=== PATIENT | female | born 1935 | race Caucasian/White ===

== ENCOUNTER → 2017-06-29 12:00 | Outpatient (REF) | payer MEDICARE, SELFPAY ==
[2017-06-29 14:32] LABS: Color, Urine Yellow (Yellow); Glucose, Dipstick Normal (Normal); Ketone-Dipstick Negative (Negative); Leukocyte Esterase-Dipstick 25 /ul (Negative); Nitrite-Dipstick Positive (Negative); Occult Blood-Urine 10 /ul (Negative); Protein-Dipstick Negative (Negative); Urine Bilirubin Dipstick Negative (Negative); Urine Clarity Clear (Clear); Urine Urobilinogen Normal (Normal)
== END ==
LOC: OLS.DANBUR 12:00
PROVIDERS: Visit Provider Family Medicine
DX: N39.0 Urinary tract infection, site not specified (principal)
CPT/HCPCS: 81002; 87086; 87088; 87186

== ENCOUNTER → 2017-11-22 05:00 | Outpatient (REF) | payer MEDICARE, SELFPAY ==
[2017-11-22 08:31] LABS: Thyroid Stim Hormone (TSH) 1.91 uIU/mL (0.358-3.74)
== END ==
PROVIDERS: Visit Provider Family Medicine
DX: E03.9 Hypothyroidism, unspecified (principal)
CPT/HCPCS: 36415; 84443

== ENCOUNTER → 2018-01-26 09:30 | Outpatient (REF) | payer MEDICARE, SELFPAY ==
[2018-01-26 10:07] LABS: Color, Urine Yellow (Yellow); Glucose, Dipstick Normal (Normal); Ketone-Dipstick Negative (Negative); Leukocyte Esterase-Dipstick 500 /ul (Negative); Nitrite-Dipstick Positive (Negative); Occult Blood-Urine 10 /ul (Negative); Protein-Dipstick Negative (Negative); Specific Gravity, Urine 1.015 (1.002-1.030); Urine Bilirubin Dipstick Negative (Negative); Urine Clarity Clear (Clear); Urine Urobilinogen Normal (Normal)
== END ==
PROVIDERS: Visit Provider Family Medicine
DX: N39.0 Urinary tract infection, site not specified (principal)
CPT/HCPCS: 81002; 87077; 87086; 87088; 87186

== ENCOUNTER 2018-01-31 17:35 | Emergency (ER) | payer MEDICARE, SELFPAY ==
[2018-01-31 17:36] VITALS: BP 158/69; PULSE 93; RESP 16; TEMP 36.7; O2SAT 96; BMI 16.1
--- NOTE | 2018-01-31 17:56 | RAD_ITS ---
STUDY: X-RAY - RIGHT SHOULDER REASON FOR EXAM: Female, 82 years old. Fall TECHNIQUE: 2 view(s) of the shoulder. COMPARISON: None. FINDINGS: There is no evidence of fracture or dislocation. There are mild degenerative changes. There are no radiodense foreign bodies. RAD/Shoulder min 2 Views IMPRESSION: No fracture or dislocation. Mild degenerative change. Electronically Signed: Joaquim Hayden, at 18:50 EDT Tel , Service support ,
--- NOTE | 2018-01-31 17:56 | CT_ITS ---
STUDY: CT CERVICAL SPINE WITHOUT CONTRAST REASON FOR EXAM: Female, 82 years old. Trauma RADIATION DOSAGE (If Supplied By Facility): CTDIvol = ( 12.41 ) mGy, DLP = ( 254.83 ) mGycm TECHNIQUE: High resolution transaxial imaging was performed without contrast material. Sagittal and coronal images were reconstructed. Individualized dose optimization techniques were used for this CT. COMPARISON: None available. FINDINGS: There is no evidence of fracture or dislocation in the cervical spine. There are mild degenerative changes. The visualized paraspinal soft tissues are within normal limits. CT/Spine Cervical without Contras IMPRESSION: No fracture or dislocation in the cervical spine. Mild degenerative change. Electronically Signed: Joaquim Hayden, at 18:48 EDT Tel , Service support ,
--- NOTE | 2018-01-31 17:56 | CT_ITS ---
STUDY: CT BRAIN WITHOUT CONTRAST REASON FOR EXAM: Female, 82 years old. Trauma RADIATION DOSAGE (If Supplied By Facility): CTDIvol = ( 44.99 ) mGy, DLP = ( 779.24 ) mGycm TECHNIQUE: Transaxial CT imaging of the brain was performed without administration of intravenous contrast material. Individualized dose optimization techniques were used for this CT. COMPARISON: None. FINDINGS: There is no acute bleed or infarct. There are chronic ischemic and atrophic changes. The ventricles are normal in configuration. There is no hydrocephalus. The visualized paranasal sinuses are clear. The mastoid air cells are well aerated. There is no skull fracture. CT/Brain/Head without Contrast IMPRESSION: No acute intracranial abnormality. Chronic ischemic and atrophic changes. Electronically Signed: Joaquim Hayden, at 18:41 EDT Tel , Service support ,
--- NOTE | 2018-01-31 18:15 | RAD_ITS ---
STUDY: X-RAY - RIGHT KNEE REASON FOR EXAM: Female, 82 years old. Fall TECHNIQUE: 3 view(s) of the knee. COMPARISON: None. FINDINGS: There is no evidence of fracture or dislocation. There are no significant degenerative changes. There are no radiodense foreign bodies. RAD/Knee 3 Views IMPRESSION: No fracture or dislocation. Electronically Signed: Joaquim Hayden, at 18:49 EDT Tel , Service support ,
--- NOTE | 2018-01-31 19:08 | ED.VISSUMM ---
- ER Visit Summary Date of Service: 01/31/18 Chief Complaint: Fall History of Present Illness: The patient is a 82 F who states that she fell last evening on her way to the bathroom. She struck the right side of her head her right shoulder her right knee. No loss of consciousness. She was supposed to the pain is in the right shoulder. No blood thinners. No nausea vomiting today. Physical Examination: Afebrile vital signs are stable Patient has pain with movement of the right shoulder but no obvious dislocation or deformity. She is neurovascularly intact distally. No pain with palpation of the scapula or the ribs. Lung sounds are clear and equal. There is a contusion noted over the inferior aspect of the right knee. No joint effusion or obvious deformity. Neurovascular intact below the knee. Test Results: CT the brain and cervical spine were negative. X-rays of the shoulder and knee were also negative. Emergency Department Course and Treatment: Patient will be discharged home following up if not improving return if worsening or concerns Impression: 1. Fall 2. Right shoulder contusion 3. Right knee contusion This note was generated with [employer] dictation software. It may contain incorrect words, spelling, and punctuation that were not noted in review of the chart prior to signing ED Disposition - Plan for ED Patient: Disposition: Home or Assisted Living Chief Complaint: Fall Instructions: ED Contusion Lower Ext, ED Contusion Upper Ext Referrals: Scot Miller MD [Primary Care Provider] - 1 Week if not improving
[2018-01-31 19:28] VITALS: RESP 18; O2SAT 98
== END 2018-01-31 19:29 | disposition home or self-care (01) ==
PROVIDERS: Emergency Provider Emergency Medicine; Family Provider Family Medicine; PCP Family Medicine
DX: S40.011A Contusion of right shoulder, initial encounter (principal); S80.01XA Contusion of right knee, initial encounter; W19.XXXA Unspecified fall, initial encounter; Y93.9 Activity, unspecified; Y92.9 Unspecified place or not applicable; G35 Multiple sclerosis; E03.9 Hypothyroidism, unspecified; F32.9 Major depressive disorder, single episode, unspecified; Z79.899 Other long term (current) drug therapy
CPT/HCPCS: 70450; 72125; 73030; 73562; 99284

== ENCOUNTER → 2018-06-13 05:00 | Outpatient (REF) | payer MEDICARE, SELFPAY ==
[2018-06-13 09:29] LABS: Anion Gap 8 (5-15); BUN 24 mg/dL (7-18); BUN/Creat Ratio 35.4 RATIO (10-20); Calcium,Total 8.6 mg/dL (8.5-10.1); Chloride 106 mmol/L (98-107); Creatinine, Serum 0.68 mg/dL (0.55-1.02); EST Glomerular Filtration Rate 88 mL/min (>60); Est Glom Filt Rate - Afr Amer 107 mL/min (>60); Glucose 84 mg/dL (74-106); Potassium 4.6 mmol/L (3.5-5.1); Sodium Level 140 mmol/L (136-145); Thyroid Stim Hormone (TSH) 0.98 uIU/mL (0.358-3.74)
== END ==
PROVIDERS: Visit Provider Family Medicine
DX: E03.9 Hypothyroidism, unspecified (principal); Z79.899 Other long term (current) drug therapy
CPT/HCPCS: 36415; 80048; 84443

== ENCOUNTER 2018-07-01 20:08 | Observation (INO) | payer MEDICARE, SELFPAY ==
[2018-07-01 20:09] VITALS: BP 165/77; PULSE 73; RESP 16; TEMP 36.5; O2SAT 95; BMI 18.7
--- NOTE | 2018-07-01 20:35 | EKG12_ITS ---
Test Reason : Blood Pressure : / mmHG Vent. Rate : 072 BPM Atrial Rate : 072 BPM P-R Int : 132 ms QRS Dur : 070 ms QT Int : 372 ms P-R-T Axes : 062 043 053 degrees QTc Int : 407 ms Normal sinus rhythm Possible Left atrial enlargement Borderline ECG Confirmed by NICK MACHADO ([id number]), graphic editor ILANA GROVE ([id number]) on 07/04/2018 1:12:51 PM Referred By: Confirmed By:NICK MACHADO
--- NOTE | 2018-07-01 20:35 | RAD_ITS ---
STUDY: X-RAY - RIGHT HIP REASON FOR EXAM: Female, 82 years old. Fall. Right hip pain. TECHNIQUE: 2 views of the hip. COMPARISON: None. FINDINGS: Normal femoral head, neck, intertrochanteric region and visualized proximal femur. Normal acetabulum. Normal hip joint. Normal visualized superior and inferior pubic rami and ischial tuberosities. There is no demonstrated hip fracture. RAD/HIP, UNI W/ Pelvis 2-3 Views IMPRESSION: Normal x-ray examination of the hip. Electronically Signed: Ernie Hagen MD at 21:37 EST , Service support ,
--- NOTE | 2018-07-01 20:38 | ED.VISSUMM ---
- ER Visit Summary Date of Service: 07/01/18 Chief Complaint: Fall History of Present Illness: The patient is a 82 F presenting after fall. Patient states she has fallen twice in the past 3 days. She denies hitting her head or losing consciousness. States she lost her balance. After her fall today she complained of right hip pain. She is able to stand but is unable to ambulate. She is living in assisted living currently. Denies other injuries. Denies other complaints. Physical Examination: Vitals are stable. Patient is afebrile. Alert no acute distress. HEENT exam is unremarkable. Neck is supple, nontender. Lungs are clear and equal bilaterally. Heart is regular rate and rhythm. Abdomen is soft nontender nondistended. Extremities right hip tender to palpation with painful range of motion. No shortening or rotation. Skin is warm and dry. No focal neurologic deficit. Remainder of exam is unremarkable. Emergency Department Course and Treatment: Patient was given morphine, Zofran IV. EKG is sinus rate is 72. CBC, chemistries unremarkable other than hemoglobin 11.9, BUN 44. Urinalysis shows nitrites, 0 white blood cells. Urine culture was sent. Troponin is negative. Chest x-ray shows no acute process. Right hip x-ray shows no acute process. Patient attempted to ambulate and was unable to ambulate in the ED. Discussed with the hospitalist for admission. Disposition: Admission Impression: Right hip pain, inability to ambulate This note was generated with [employer] dictation software. It may contain incorrect words, spelling, and punctuation that were not noted in review of the chart prior to signing ED Disposition - Plan for ED Patient: Referrals: Dulce Woodson MD [Primary Care Provider] -
[2018-07-01 20:58] LABS: Absolute Lymphocyte Count 1.65 X10^3/ul (0.83-4.51); Absolute Neutrophil Count 6.4 X10^3/uL (2.0-7.7); Basophil# 0.02 X10^3/uL; Basophil% 0.2 % (0-1); Eosinophil# 0.03 X10^3/uL; Eosinophils% 0.3 % (0-5); Hematocrit 37.5 % (37-47); Hemoglobin 11.9 g/dl (12.0-15.0); Lymphocyte # 1.65 X10^3/ul (4.0); Lymphocyte % 18.2 % (19-41); Mean Corp Hgb Conc 31.7 g/gl (32-36); Mean Corpuscular Hgb 31.1 pg (27.0-32.0); Mean Corpuscular Volume 97.9 fL (81-99); Mean Platelet Vol. 9.3 fl (6.2-12.0); Monocyte# 0.95 X10^3/uL; Monocyte% 10.5 % (0-10); Neutrophil # 6.39 X10^3/uL (2.7-7.7); Neutrophil % 70.2 % (47-70); Platelet Count 186 K/mm3 (150-450); RBC Distribution Width CV 14.2 % (11.6-14.6); RBC Distribution Width SD 51.1 fl (35.1-43.9); Red Blood Count 3.83 M/mm3 (4.2-5.4); White Blood Count 9.1 K/mm3 (4.4-11.0)
[2018-07-01 20:59] LABS: POSITIVE COUNT NO; POSITIVE DIFFERENTIAL NO; POSITIVE MORPHOLOGY NO
--- NOTE | 2018-07-01 21:02 | ED.RN ---
pt denies pain at this time, pt verbalizes no need for pain or nausea medication.
[2018-07-01 21:17] LABS: Anion Gap 8 (5-15); BUN 44 mg/dL (7-18); BUN/Creat Ratio 56.1 RATIO (10-20); Calcium,Total 8.4 mg/dL (8.5-10.1); Chloride 108 mmol/L (98-107); Creatinine, Serum 0.78 mg/dL (0.55-1.02); EST Glomerular Filtration Rate 75 mL/min (>60); Est Glom Filt Rate - Afr Amer 90 mL/min (>60); Estimated Creatinine Clearance 36.65 ml/min; Glucose 93 mg/dL (74-106); Potassium 3.8 mmol/L (3.5-5.1); Sodium Level 142 mmol/L (136-145)
--- NOTE | 2018-07-01 21:25 | RAD_ITS ---
STUDY: X-RAY CHEST REASON FOR EXAM: Female, 82 years old. Fall. Pain. TECHNIQUE: Single AP portable view of the chest. COMPARISON: None. FINDINGS: The lungs are clear and expanded. Elevated right hemidiaphragm. No infiltrates or effusions. There is no demonstrated pleural abnormality. Normal size heart. Normal mediastinum and pinky. Normal visualized pulmonary arteries. Normal visualized aortic arch and descending thoracic aorta. There is mild dextroscoliosis of the thoracic spine. Normal visualized ribs, clavicles, and shoulders. There is no demonstrated abnormality of the visualized soft tissue structures of the upper abdomen. RAD/Chest 1 View (Portable) IMPRESSION: No acute chest disease. Electronically Signed: Ernie Hagen MD at 21:36 EST , Service support ,
[2018-07-01 22:04] LABS: Mucous, Urine 0 SEEN /hpf (<or=2+); Red Blood Cells-Urine 0 SEEN /hpf (0-5); Squamous Epithelial Cells - UA 0 SEEN /hpf (5-10); White Blood Cells 0 SEEN /hpf (0-5)
[2018-07-01 22:19] LABS: Bacteria 1+ /hpf (None Seen); Color, Urine Yellow (Yellow); Glucose, Dipstick Normal (Normal); Ketone-Dipstick Negative (Negative); Leukocyte Esterase-Dipstick Negative /ul (Negative); Nitrite-Dipstick Positive (Negative); Occult Blood-Urine 10 /ul (Negative); Protein-Dipstick Negative (Negative); Specific Gravity, Urine 1.025 (1.002-1.030); Urine Bilirubin Dipstick Negative (Negative); Urine Clarity Clear (Clear); Urine Urobilinogen Normal (Normal)
--- NOTE | 2018-07-01 22:44 | HP.PCM_ITS ---
History of Present Illness Date of Admission: 07/01/18 Chief Complaint: right hip pain, recurrent falls The patient is a 82 year old F past medical history which includes multiple sclerosis. She was admitted through the ED on 07/01/2018 with a complaint of right hip pain and inability to weight-bear. Patient has had a couple of falls recently and her daughter states that she was told by the assisted living facility staff that patient tripped over her dog and fell. Patient denied any loss of consciousness, dizziness or lightheadedness, palpitations or blurred vision. She fell and hurt her right hip and was unable to weight-bear on the hip and so she decided to come into the ED. She has not had a flareup of her MS in recent times and states that she recently had an MRI of the brain done last Saturday and they are waiting the results of it. It was done just as a routine follow-up for her MS as she did not have any symptoms at that time. Vitals were essentially stable and labs were unremarkable. X-ray of the right hip showed a normal examination. She is been admitted to be managed for debility due to recurrent falls and right hip pain due to recurrent falls. [] Past Medical History Past Medical History (Chronic Problems): Chronic Problems Sacroiliac dysfunction (Chronic) Lumbar degenerative disc disease (Chronic) Coccydynia (Chronic) Allergies No Known Allergies Allergy (Verified 07/26/16 12:50) Home Medications: Ambulatory Orders Medication Instructions Recorded Fluoxetine [Prozac] 20 mg PO DAILY 01/31/18 Levothyroxine [Synthroid] 25 mcg PO DAILY 01/31/18 Meloxicam 15 mg PO DAILY 01/31/18 Acetaminophen 500 mg PO Q6H PRN 07/02/18 Docusate Sodium 100 mg PO BID 07/02/18 Gabapentin [Neurontin] 300 mg PO TID 07/02/18 Hydrocodone Bitart/Apap 5-325 1 tab PO BID PRN 07/02/18 [[place] 5/325] Mirtazapine 15 mg PO QHS 07/02/18 Oxybutynin Chloride [Oxybutynin 10 mg PO DAILY 07/02/18 Chloride ER] Prednisone 10 mg PO DAILY 07/02/18 Psychiatric History: No pertinent psych hx ARCHITECTURAL DRAFTSMAN History: No pertinent ARCHITECTURAL DRAFTSMAN history Lives: - - Assisted living facility Smoking Status: Former smoker Alcohol: None Drugs: None - *Family History Maternal History Items: No pertinent history Review of Systems Constitutional: Denies: Chills, Fever, Malaise, Weakness, Weight Change, Fatigue Eyes: Denies: Blurred vision, Cataracts HEENT: Denies: Head Aches, Sinus Congestion, Sinus Drainage Cardiovascular: Denies: Chest Pain, Chest Tightness, Heaviness, Light Headedness, Orthopnea, Palpitations, Paroxysmal Noc. Dyspnea, Syncope Respiratory: Denies: Cough, Shortness of Breath, Shortness of breath at rest, Sputum production Gastrointestinal: Denies: Abdominal Pain, Nausea, Vomiting Genitourinary: Denies: Dysuria Musculoskeletal: Reports: Joint Pain - right hip pain. Denies: Arm Pain, Back Pain, Joint Tenderness Skin: Denies: Rash, Wounds Neurological: Denies: Balance problems, Blurred vision, Double vision, Focal weakness, Numbness, Tingling Psychiatric: Denies: Anxiety, Depression, Homicidal Ideations, Suicidal Ideations Hematologic/ Lymphatic: Denies: Easy Bruising, Easy Bleeding VTE Information - Inpt Only VTE Present on Admission: No VTE Pharm Prophylaxis ordered?: Yes - Physical Exam General: Alert, Oriented x3, Cooperative, No apparent distress, - - does seem a bit confused during review HEENT: Atraumatic, PERRLA, EOMI, Normocephalic Oral: Moist Mucosa Neck: Supple, No JVD, Negative Carotid Bruits Lungs: Clear to auscultation, Normal air movement, No rhonchi, No wheeze, No rales Cardiovascular: Regular rate, Regular Rhythm, Normal S1, Normal S2, No murmurs Abdomen: Bowel Sounds Present, Soft, Non Tender, Non-Distended, No Hepato- splenomegaly Extremities: No clubbing, No cyanosis, No edema, Capillary Refill Less than 3 Seconds Skin: No rashes, No breakdown Musculoskeletal: No Tenderness to Palpation of Joints or Extremities, - - no tenderness on rotation of right hip joint Lymphatic: No Cervical, Supraclavicular, or Inguinal Adenopathy Neurological: Cranial nerves II-XII grossly intact, Neuro grossly intact Psych/Mental Status: Normal Affect, Appropriate, Alert and oriented to time, place, person, mood and affect Vital Signs Temp Pulse Resp BP Pulse Ox 97.7 F L 73 16 165/77 H 95 07/01/18 20:09 07/01/18 20:09 07/01/18 20:09 07/01/18 20:09 07/01/18 20:09 Oxygen Delivery Method Room Air Weight: 116 lb Body Mass Index (BMI) 18.7 Laboratory Tests Past 24 Hrs 07/01/18 07/01/18 07/01/18 20:45 20:45 22:00 WBC 9.1 RBC 3.83 L Hgb 11.9 L Hct 37.5 MCV 97.9 MCH 31.1 MCHC 31.7 L RDW 14.2 RDW Differential 51.1 H Plt Count 186 MPV 9.3 Immature Gran % (Auto) 0.600 Neut % (Auto) 70.2 H Lymph % (Auto) 18.2 L [place] % (Auto) 10.5 H Eos % (Auto) 0.3 Baso % (Auto) 0.2 Absolute Neuts (auto) 6.4 Absolute Lymphs (auto) 1.65 Total Counted Not Reportable Sodium 142 Potassium 3.8 Chloride 108 H Carbon Dioxide 26.0 Anion Gap 8 BUN 44 H Creatinine 0.78 Estim Creat Clear Calc 36.65 Est GFR (MDRD) Af Amer 90 Est GFR (MDRD) Non-Af 75 BUN/Creatinine Ratio 56.1 H Glucose 93 Calcium 8.4 L Troponin I < 0.015 Urine Color Yellow Urine Clarity Clear Urine pH 5.0 Ur Specific [place] 1.025 Urine Protein Negative Urine Glucose (UA) Normal Urine Ketones Negative Urine Occult Blood 10 H Urine Nitrite Positive H Urine Bilirubin Negative Urine Urobilinogen Normal Ur Leukocyte Esterase Negative Urine RBC 0 SEEN Urine WBC 0 SEEN Ur Squamous Epith Cells 0 SEEN Urine Bacteria 1+ Urine Mucus 0 SEEN Diagnostic Data Hip/Pelvis X-Ray 07/01/18 20:35 IMPRESSION: Normal x-ray examination of the hip. Electronically Signed: Ernie Hagen MD at 21:37 EST , Service support , Chest X-Ray 07/01/18 21:25 IMPRESSION: No acute chest disease. Electronically Signed: Ernie Hagen MD at 21:36 EST , Service support , Assessment/Plan 82-year-old female admitted with a complaint of right hip pain and falls. 1. Right hip pain due to mechanical falls * xray of right hip was negative. * unable to weight bear on RLE * admit to Med surg with telemetry * PT/OT consult * fall precautions. * May need placement * MRI of right hip tomorrow * 2. General debility due to mechanical falls: PT/OT consulted. fall precautions 3.Mechanical falls: as under 1. 4. Hypothyroidism: on synthroid 5. Multiple sclerosis: on oxybutinin. Had recent MRI done. To follow up with her neurologist upon discharge DVT prophylaxis: heparin Code Visit OBSV E&M: 49695 Initial observation care L3
[2018-07-01 23:06] VITALS: BP 131/93; PULSE 68; RESP 20; O2SAT 97
[2018-07-01 23:57] VITALS: BMI 18.7
[2018-07-02] VITALS (9 sets, daily range): BP systolic 112–153; BP diastolic 54–74; PULSE 64–83; RESP 16; TEMP 36.3–37.1; O2SAT 94–100; BMI 18.7
[2018-07-02] MEDS: 0.9% Normal Saline 1,000 ML 75 ML IV (00:32)
[2018-07-02 05:52] LABS: Absolute Lymphocyte Count 2.28 X10^3/ul (0.83-4.51); Absolute Neutrophil Count 4.1 X10^3/uL (2.0-7.7); Basophil# 0.03 X10^3/uL; Basophil% 0.4 % (0-1); Eosinophil# 0.08 X10^3/uL; Eosinophils% 1.1 % (0-5); Hematocrit 33.9 % (37-47); Hemoglobin 10.7 g/dl (12.0-15.0); Lymphocyte # 2.28 X10^3/ul (4.0); Lymphocyte % 31.2 % (19-41); Mean Corp Hgb Conc 31.6 g/gl (32-36); Mean Corpuscular Hgb 30.8 pg (27.0-32.0); Mean Corpuscular Volume 97.7 fL (81-99); Mean Platelet Vol. 9.3 fl (6.2-12.0); Monocyte# 0.78 X10^3/uL; Monocyte% 10.7 % (0-10); Neutrophil # 4.11 X10^3/uL (2.7-7.7); Neutrophil % 56.2 % (47-70); Platelet Count 164 K/mm3 (150-450); RBC Distribution Width CV 14.3 % (11.6-14.6); RBC Distribution Width SD 50.9 fl (35.1-43.9); Red Blood Count 3.47 M/mm3 (4.2-5.4); White Blood Count 7.3 K/mm3 (4.4-11.0)
[2018-07-02 05:53] LABS: POSITIVE COUNT NO; POSITIVE DIFFERENTIAL NO; POSITIVE MORPHOLOGY NO
--- NOTE | 2018-07-02 05:55 | MRI_ITS ---
STUDY: MRI BILATERAL HIPS T PELVIS REASON FOR EXAM: Right hip pain, multiple falls. TECHNIQUE: Standardized fat and water weighted pulse sequences were obtained in all 3 orthogonal planes. COMPARISON: Radiographs 07/01/2018. FINDINGS: RIGHT HIP Normal hip joint without articular joint space narrowing. Normal right acetabulum. Normal right labrum. Normal right femoral head. Normal right femoral neck and intratrochanteric region. Normal right gluteus minimus, medius and iliopsoas tendons and distal insertions. Normal right superior and inferior pubic rami. Normal right pubic symphysis. Normal right ischial tuberosity. Normal origin of the right hamstring tendons. There is a nondisplaced fracture of the right sacral ala (T1 axial images 8-13) with associated bone edema (inversion recovery coronal images 7-9). Normal visualized soft tissue structures of the pelvis. LEFT HIP Normal left hip joint without articular joint space narrowing. Normal left acetabulum. Normal left labrum. Normal left femoral head. Normal left femoral neck and intratrochanteric region. Normal left gluteus minimus, medius and iliopsoas tendons and distal insertions. Normal left superior and inferior pubic rami. Normal left pubic symphysis. Normal left ischial tuberosity. Normal origin of the left hamstring tendons. Normal visualized left iliac wing, sacroiliac joint, and sacral ala. Normal visualized soft tissue structures of the pelvis. MRI/Pelvis (Routine) IMPRESSION: Nondisplaced fracture of the right sacral ala. Electronically Signed: Norman Chamberlain MD at 11:17 EST Tel , Service support ,
[2018-07-02 06:04] LABS: Anion Gap 8 (5-15); BUN 33 mg/dL (7-18); Calcium,Total 7.9 mg/dL (8.5-10.1); Chloride 108 mmol/L (98-107); Creatinine, Serum 0.72 mg/dL (0.55-1.02); EST Glomerular Filtration Rate 83 mL/min (>60); Est Glom Filt Rate - Afr Amer 100 mL/min (>60); Estimated Creatinine Clearance 36.64 ml/min; Glucose 82 mg/dL (74-106); Potassium 4.5 mmol/L (3.5-5.1); Sodium Level 144 mmol/L (136-145)
[2018-07-02] MEDS: 0.9% NaCl Peripheral Flush Adult/Peds IV ×2 (06:22→10:24)
[2018-07-02] MEDS: Gabapentin 300 MG Capsule PO ×3 (06:22→22:00)
[2018-07-02] MEDS: Levothyroxine 25 MCG TABLET PO (06:22)
[2018-07-02] MEDS: Enoxaparin 40 MG/0.4 ML Syringe SC (08:14)
[2018-07-02] MEDS: Meloxicam 15 MG Tablet PO (08:14)
[2018-07-02] MEDS: Tolterodine Tartrate 2 MG CAP.SA PO (08:14)
[2018-07-02] MEDS: predniSONE 10 MG Tablet PO (08:14)
[2018-07-02] MEDS: Docusate Sodium 100 MG Capsule PO ×2 (08:14→22:00)
[2018-07-02] MEDS: FLUoxetine 20 MG Capsule PO (08:14)
--- NOTE | 2018-07-02 11:02 | CASEMGMT ---
Pt had reported to admitting RN that her daughter Chevy Loja is POA but forms are not on the chart, she will bring the forms in. PAWEL Stover, EXTRUSION PRESS SUPERVISOR
--- NOTE | 2018-07-02 11:14 | CASEMGMT ---
SW met w/pt in room in regard to prior level of function and discharge plan. PCP: Dr. Woodson--though pt states she has not seen Dr. Woodson, she is over the patients at [facility]. Pt used to see a different doctor, is not sure of that doctor's name, but is wondering if she can stay with that doctor or if she has to change to Dr. Woodson. Preferred Pharmacy: Uses the pharmacy at [facility] Insurance/Prescription coverage: [employer] Living Will/POA: Pt confirmed daughter Chevy Loja is POA, papers are not on the chart. Living Arrangements: at [facility] since September of 2017, pt thinks Prior level of function/DME: Pt states did not use a cane or walker, has a small dog she cares for. Pt completes her ADL's, does use [facility] for medication assist and meals. SW spoke w/pt about discharge plan. At this time it is too soon to know what will be the appropriate plan. If able pt would like to return to [facility]. Pt still has an MRI pending as well as PT/OT. SW will continue to follow for discharge planning. Pt states daughter will be here later, SW will speak w/daughter later today when she is here. PAWEL Stover, INSTALLATION HELPER
--- NOTE | 2018-07-02 14:15 | CASEMGMT ---
Pt did well with PT/OT, and should be able to return to [place] with a walker and some home PT as per PT and OT. Pt also would benefit from having a walker. Pt's daughter is in the room now, SW spoke w/pt and daughter. They are in agreement with pt returning to [place] with home PT and a walker. Daughter states they may have a walker and will check on it. SW explained if they do have a walker, bring it in and the therapists can adjust it for the pt. Daughter states understanding. If they do not have a walker, pt does not have a preference for where to get the walker. SW will continue to follow, did text physician to let her know that pt can return to assisted living tomorrow. SW called Gracie, RN was busy, PERI will call back tomorrow. PERI will continue to follow. PAWEL Stover, DISTILLATION OPERATOR
--- NOTE | 2018-07-02 16:53 | PCM.PN.HOSP ---
Subjective: Patient was seen and examined. She feels improved. Her hip pain is better. Denies new complains. ROS is negative. Objective: Physical Exam General: Alert, Oriented x3, Cooperative, No apparent distress HEENT: Atraumatic, PERRLA, EOMI, Normocephalic Oral: Moist Mucosa Neck: Supple, No JVD, Negative Carotid Bruits Lungs: Clear to auscultation, Normal air movement, No rhonchi, No wheeze, No rales Cardiovascular: Regular rate, Regular Rhythm, Normal S1, Normal S2, No murmurs Abdomen: Bowel Sounds Present, Soft, Non Tender, Non-Distended, No Hepato-splenomegaly Extremities: No clubbing, No cyanosis, No edema, Capillary Refill Less than 3 Seconds Skin: No rashes, No breakdown Musculoskeletal: No Tenderness to Palpation of Joints or Extremities, - - no tenderness on rotation of right hip joint Lymphatic: No Cervical, Supraclavicular, or Inguinal Adenopathy Neurological: Cranial nerves II-XII grossly intact, Neuro grossly intact Psych/Mental Status: Normal Affect, Appropriate, Alert and oriented to time, place, person, mood and affect Vitals/I&O's: Vital Signs Temp Pulse Resp BP Pulse Ox 98.3 F 83 16 112/54 L 94 07/02/18 14:40 07/02/18 14:40 07/02/18 14:40 07/02/18 14:40 07/02/18 14:40 Oxygen Delivery Method Room Air Weight: 52.6 kg Body Mass Index (BMI) 18.7 Intake and Output for Last 24 Hours 06/30/18 07/01/18 07/02/18 23:59 23:59 23:59 Intake Total 1126 / 1126 Output Total 300 / 300 Balance 826 / 826 Microbiology Past 72 Hours 07/01/18 22:00 Urine, Catheterized Urine Culture - Preliminary Gram negative yi Laboratory Results 07/01/18 20:45: WBC 9.1, RBC 3.83 L, Hgb 11.9 L, Hct 37.5, MCV 97.9, MCH 31.1, MCHC 31.7 L, RDW 14.2, RDW Differential 51.1 H, Plt Count 186, MPV 9.3, Immature Gran % (Auto) 0.600, Neut % (Auto) 70.2 H, Lymph % (Auto) 18.2 L, [place] % (Auto) 10.5 H, Eos % (Auto) 0.3, Baso % (Auto) 0.2, Absolute Neuts (auto) 6.4, Absolute Lymphs (auto) 1.65, Total Counted Not Reportable 07/01/18 20:45: Sodium 142, Potassium 3.8, Chloride 108 H, Carbon Dioxide 26.0, Anion Gap 8, BUN 44 H, Creatinine 0.78, Estim Creat Clear Calc 36.65, Est GFR (MDRD) Af Amer 90, Est GFR (MDRD) Non-Af 75, BUN/Creatinine Ratio 56.1 H, Glucose 93, Calcium 8.4 L, Troponin I < 0.015 07/01/18 22:00: Urine Color Yellow, Urine Clarity Clear, Urine pH 5.0, Ur Specific [place] 1.025, Urine Protein Negative, Urine Glucose (UA) Normal, Urine Ketones Negative, Urine Occult Blood 10 H, Urine Nitrite Positive H, Urine Bilirubin Negative, Urine Urobilinogen Normal, Ur Leukocyte Esterase Negative, Urine RBC 0 SEEN, Urine WBC 0 SEEN, Ur Squamous Epith Cells 0 SEEN, Urine Bacteria 1+, Urine Mucus 0 SEEN 07/02/18 05:37: WBC 7.3, RBC 3.47 L, Hgb 10.7 L, Hct 33.9 L, MCV 97.7, MCH 30.8, MCHC 31.6 L, RDW 14.3, RDW Differential 50.9 H, Plt Count 164, MPV 9.3, Immature Gran % (Auto) 0.400, Neut % (Auto) 56.2, Lymph % (Auto) 31.2, [place] % (Auto) 10.7 H, Eos % (Auto) 1.1, Baso % (Auto) 0.4, Absolute Neuts (auto) 4.1, Absolute Lymphs (auto) 2.28, Total Counted Not Reportable 07/02/18 05:37: Sodium 144, Potassium 4.5, Chloride 108 H, Carbon Dioxide 28.0, Anion Gap 8, BUN 33 H, Creatinine 0.72, Estim Creat Clear Calc 36.64, Est GFR (MDRD) Af Amer 100, Est GFR (MDRD) Non-Af 83, BUN/Creatinine Ratio 46.0 H, Glucose 82, Calcium 7.9 L Current Medications Acetaminophen (Tylenol) 650 mg PO Q6H PRN PRN PRN Reason: PAIN Acetaminophen (Tylenol) 500 mg PO Q6H PRN PRN Reason: PAIN Hydrocodone Bitart/Acetaminophen ([place] 5mg-325mg) 1 tablet PO BID PRN PRN PRN Reason: PAIN Docusate Sodium (Colace) 100 mg PO BID [facility] Last Admin: 07/02/18 08:14 Dose: 100 mg Enoxaparin Sodium (Lovenox) 40 mg SC DAILY@1000 [facility] Last Admin: 07/02/18 08:14 Dose: 40 mg Fluoxetine HCl (Prozac) 20 mg PO DAILY [facility] Last Admin: 07/02/18 08:14 Dose: 20 mg Gabapentin (Neurontin) 300 mg PO TID [facility] Last Admin: 07/02/18 14:41 Dose: 300 mg Levothyroxine Sodium (Synthroid) 25 mcg PO DAILY@0600 [facility] Last Admin: 07/02/18 06:22 Dose: 25 mcg Magnesium Hydroxide (Milk Of Magnesia) 30 ml PO DAILY PRN PRN PRN Reason: Constipation Meloxicam (Mobic) 15 mg PO DAILY [facility] Last Admin: 07/02/18 08:14 Dose: 15 mg Mirtazapine (Remeron) 15 mg PO QHS [facility] Admin: 07/02/18 08:14 Dose: 10 mg Sodium Chloride () 5 - 15 ml IV UD PRN PRN Reason: SALINE FLUSH Last Admin: 07/02/18 10:24 Dose: 10 ml Tolterodine Tartrate (Detrol La) 2 mg PO DAILY [facility] Last Admin: 07/02/18 08:14 Dose: 2 mg Medical Necessity - Tobacco Use Smoking Status: Former smoker Tobacco Use: Cigarettes Assessment/Plan 1. Right hip pain, X-ray of hip is negative, MRI of hip showed non-displaced fracture of right sacral ala Pain is fairly controlled. PT/OT consulted 2. Debility/recurrent falls, PT/OT consulted 3. Hypothyroidism, on synthroid 4. DVT PPx- Lovenox SC Code Visit Inpatient E&M: 91182 Subs Hosp L2
[2018-07-02] MEDS: Mirtazapine 15 MG Tablet PO (22:00)
[2018-07-03 04:00] VITALS: BP 140/71; PULSE 78; RESP 16; TEMP 36.6; O2SAT 94
[2018-07-03] MEDS: Levothyroxine 25 MCG TABLET PO (06:02)
[2018-07-03] MEDS: Gabapentin 300 MG Capsule PO ×2 (06:02→13:10)
[2018-07-03 10:10] VITALS: BP 155/81; PULSE 73; RESP 16; TEMP 36.6; O2SAT 94
[2018-07-03] MEDS: predniSONE 10 MG Tablet PO (10:12)
[2018-07-03] MEDS: Docusate Sodium 100 MG Capsule PO (10:12)
[2018-07-03] MEDS: FLUoxetine 20 MG Capsule PO (10:12)
--- NOTE | 2018-07-03 10:12 | CASEMGMT ---
Addendum entered by Maia Camp 07/03/18 11:12: Gill from [facility] called back. SW let her know pt will return today and that the physician did order for pt to have PT/OT at the assisted living. SW explained that the daughter will warp picker pt about 1pm. Gill states spoke w/daughter and was aware. No further needs anticipated. PAWEL Stover, [employer]IN [employer] TECHNICIAN Original Note: SW spoke w/pt's daughter, she was able to find a walker for pt. SW spoke w/physician, pt can return to [facility] today. SW let daughter know, someone will be here around 1pm to warp picker pt. SW called [facility] to let them know pt can return today, message left for someone to call this SW back. SW will fax updates along with discharge instructions once the discharge instructions are written. PAWEL Stover, THIN FILM TECHNICIAN
[2018-07-03] MEDS: Meloxicam 15 MG Tablet PO (10:13)
[2018-07-03] MEDS: Tolterodine Tartrate 2 MG CAP.SA PO (10:13)
[2018-07-03] MEDS: Enoxaparin 40 MG/0.4 ML Syringe SC (10:13)
--- NOTE | 2018-07-03 10:23 | PCM.DC ---
- Discharge Diagnoses Reason(s) for Visit for Discharge Instructions: Fall, hip pain You will use the following diet at home:: Regular Your food should be the consistency of: Regular Your liquids should be the consistency of: Regular/Thin Discharge Activity: Return to Normal Activity Weight Bearing Status: Weight bearing as tolerated Additional Instructions: Continue on your pain medications. You should get physical and occupational therapy sessions in your assisted living facility. Follow-up with your neurologist [facility] for your MS related symptoms. Follow-up with your primary doctor within 1-2 weeks. Allergies/Adverse Reactions: Allergies No Known Allergies Allergy (Verified 07/02/18 00:04) Medications to take at Discharge Fluoxetine [Prozac] 20 mg PO DAILY 01/31/18 Levothyroxine [Synthroid] 25 mcg PO DAILY 01/31/18 Meloxicam 15 mg PO DAILY 01/31/18 Docusate Sodium 100 mg PO BID 07/02/18 Gabapentin [Neurontin] 300 mg PO TID 07/02/18 Hydrocodone Bitart/Apap 5-325 [[place] 5/325] 1 tab PO BID PRN 07/02/18 Mirtazapine 15 mg PO QHS 07/02/18 Oxybutynin Chloride [Oxybutynin Chloride ER] 10 mg PO DAILY 07/02/18 Prednisone 10 mg PO DAILY 07/02/18 Primary Care Physician: Dulce Woodson MD [Primary Care Provider] - Please follow up with your Primary Care Physician in: within 1-2 weeks Test Results: Test results from this visit will be discussed in further detail at your follow-up appointment, if applicable. Proposed Discharge Date: 07/03/18
--- NOTE | 2018-07-03 10:25 | DS.PCM_ITS ---
Discharge Date and Diagnosis Date of Admission: 07/01/18 Date of Discharge: 07/03/18 - Primary Discharge Diagnosis Right hip pain Nondisplaced fracture of the right sacral ala Debility - Secondary Discharge Diagnosis Chronic Problems Sacroiliac dysfunction (Chronic) Lumbar degenerative disc disease (Chronic) Coccydynia (Chronic) Hospital Course and Treatment Imaging Results: Clinical Impression(s) from Imaging Studies Hip/Pelvis X-Ray 07/01/18 20:35 IMPRESSION: Normal x-ray examination of the hip. Electronically Signed: Ernie Hagen MD at 21:37 EST , Service support , Chest X-Ray 07/01/18 21:25 IMPRESSION: No acute chest disease. Electronically Signed: Ernie Hagen MD at 21:36 EST , Service support , Pelvis MRI 07/02/18 05:55 IMPRESSION: Nondisplaced fracture of the right sacral ala. Electronically Signed: Norman Chamberlain MD at 11:17 EST Tel , Service support , None Operations: None Procedures: None Summary of Care Provided: The patient is a 82 year old F with past medical history of multiple sclerosis who follows up with [facility] comes in after a fall and complains of right hip pain. X-ray of the hip was negative. MRI of the hip showed nondisplaced fracture of the right sacral ala. Patient's pain was fairly controlled. She was seen by PT and OT and was able to ambulate fairly. Patient was continued on her chronic Synthroid. She was discharged back to a assisted living facility with physical and occupational therapy. Needs to follow-up with a [facility] multiple sclerosis specialist. Subjective: Patient was seen and examined. Denied any new complaints. Denied any chest pain or dizziness or palpitations. She was able to ambulate with therapy. Her pain is fairly controlled. Objective: Physical Exam General: Alert, Oriented x3, Cooperative, No apparent distress HEENT: Atraumatic, PERRLA, EOMI, Normocephalic Oral: Moist Mucosa Neck: Supple, No JVD, Negative Carotid Bruits Lungs: Clear to auscultation, Normal air movement, No rhonchi, No wheeze, No rales Cardiovascular: Regular rate, Regular Rhythm, Normal S1, Normal S2, No murmurs Abdomen: Bowel Sounds Present, Soft, Non Tender, Non-Distended, No Hepato- splenomegaly Extremities: No clubbing, No cyanosis, No edema, Capillary Refill Less than 3 Seconds Skin: No rashes, No breakdown Musculoskeletal: No Tenderness to Palpation of Joints or Extremities, - - no tenderness on rotation of right hip joint Lymphatic: No Cervical, Supraclavicular, or Inguinal Adenopathy Neurological: Cranial nerves II-XII grossly intact, Neuro grossly intact Psych/Mental Status: Normal Affect, Appropriate, Alert and oriented to time, place, person, mood and affect - Physical Exam Vital Signs Temp Pulse Resp BP Pulse Ox 98 F 78 16 140/71 H 94 07/03/18 04:00 07/03/18 04:00 07/03/18 04:00 07/03/18 04:00 07/03/18 04:00 Oxygen Delivery Method Room Air Weight: 52.6 kg Body Mass Index (BMI) 18.7 Intake and Output for Last 24 Hours 07/01/18 07/02/18 07/03/18 23:59 23:59 23:59 Intake Total 1751 / 1751 700 / 700 Output Total 300 / 300 Balance 1451 / 1451 700 / 700 Microbiology Past 72 Hours 07/01/18 22:00 Urine Culture - Preliminary Urine, Catheterized Gram negative yi Discharge Diet: Low fat/ Low Cholesterol, 2000 mg Sodium Diet Discharge Activity: Return to Normal Activity Weight Bearing Status: Weight bearing as tolerated Home Medications: Medications to take at Discharge Fluoxetine [Prozac] 20 mg PO DAILY 01/31/18 Levothyroxine [Synthroid] 25 mcg PO DAILY 01/31/18 Meloxicam 15 mg PO DAILY 01/31/18 Docusate Sodium 100 mg PO BID 07/02/18 Gabapentin [Neurontin] 300 mg PO TID 07/02/18 Hydrocodone Bitart/Apap 5-325 [[place] 5/325] 1 tab PO BID PRN 07/02/18 Mirtazapine 15 mg PO QHS 07/02/18 Oxybutynin Chloride [Oxybutynin Chloride ER] 10 mg PO DAILY 07/02/18 Prednisone 10 mg PO DAILY 07/02/18 Primary Care Physician: Dulce Woodson MD [Primary Care Provider] - Please follow up with your Primary Care Physician in: within 1-2 weeks Disposition: Asstd Living/Non-Skill [facility] Minutes spent on discharge:: 40 Patient Condition:: Stable Medical Necessity - Tobacco Use Smoking Status: Former smoker Tobacco Use: Cigarettes Meaningful Use Info Meaningful Use Diagnoses (Choose all that apply): None applicable Code Visit Inpatient E&M: 07083 Disch Hosp
--- NOTE | 2018-07-03 12:38 | NURSING ---
report called to Gracie CHAMBERS for patient discharge.
[2018-07-03 13:15] VITALS: BP 113/49; PULSE 88; RESP 16; TEMP 36.5; O2SAT 93
== END 2018-07-03 13:17 | disposition intermediate care facility (04) ==
LOC: ED 22:01 → MS2 23:02
PROVIDERS: Admitting Provider Student in an Organized Health Care Education/Training Program; Emergency Provider Emergency Medicine; Family Provider Family Medicine; PCP Family Medicine; Visit Provider Internal Medicine
DX: S32.19XA Other fracture of sacrum, initial encounter for closed fracture (principal); W01.0XXA Fall on same level from slipping, tripping and stumbling without subsequent striking against object, initial encounter; Y93.9 Activity, unspecified; Y92.099 Unspecified place in other non-institutional residence as the place of occurrence of the external cause; M51.36 Other intervertebral disc degeneration, lumbar region; F32.9 Major depressive disorder, single episode, unspecified; E03.9 Hypothyroidism, unspecified; G35 Multiple sclerosis; M53.3 Sacrococcygeal disorders, not elsewhere classified; Z79.899 Other long term (current) drug therapy; Z91.81 History of falling; Z87.891 Personal history of nicotine dependence
CPT/HCPCS: 36415; 71045; 72195; 73502; 80048; 81001; 84484; 85025; 87077; 87086; 87088; 87186; 93005; 96360; 96361; 96372; 97161; 97166; 97535; 99218; 99285; J7030; A4216; G0378; J2405

== ENCOUNTER → 2018-07-19 19:45 | Outpatient (REF) | payer MEDICARE, SELFPAY ==
[2018-07-02 00:31] VITALS: BMI 18.7
[2018-07-20 09:52] LABS: Mucous, Urine 0 SEEN /hpf (<or=2+); Red Blood Cells-Urine 0 SEEN /hpf (0-5); Squamous Epithelial Cells - UA 0 SEEN /hpf (5-10)
[2018-07-20 10:12] LABS: Color, Urine Yellow (Yellow); Glucose, Dipstick Normal (Normal); Ketone-Dipstick Negative (Negative); Leukocyte Esterase-Dipstick 500 /ul (Negative); Nitrite-Dipstick Positive (Negative); Occult Blood-Urine 250 /ul (Negative); Protein-Dipstick 30 mg/dl (Negative); Urine Bilirubin Dipstick Negative (Negative); Urine Clarity Sl. Cloudy (Clear); Urine Urobilinogen Normal (Normal)
[2018-07-20 10:23] LABS: Bacteria 2+ /hpf (None Seen); White Blood Cells 5-10 SEEN /hpf (0-5)
[2018-07-20 10:24] LABS: Amorphous Sediment 2+
== END ==
DX: R31.9 Hematuria, unspecified (principal); R41.0 Disorientation, unspecified
CPT/HCPCS: 81001; 87077; 87086; 87088; 87186

== ENCOUNTER → 2018-08-16 20:23 | Outpatient (CLI) | payer MEDICARE, SELFPAY ==
[2018-07-02 00:31] VITALS: BMI 18.7
[2018-08-16 20:28] LABS: Bacteria 0 SEEN /hpf (None Seen); Mucous, Urine 0 SEEN /hpf (<or=2+)
[2018-08-16 20:32] LABS: Color, Urine Yellow (Yellow); Glucose, Dipstick Normal (Normal); Ketone-Dipstick Negative (Negative); Leukocyte Esterase-Dipstick Negative /ul (Negative); Nitrite-Dipstick Negative (Negative); Occult Blood-Urine 10 /ul (Negative); Protein-Dipstick Negative (Negative); Urine Bilirubin Dipstick Negative (Negative); Urine Clarity Clear (Clear); Urine Urobilinogen Normal (Normal)
[2018-08-16 20:38] LABS: Squamous Epithelial Cells - UA 0-5 SEEN /hpf (5-10)
[2018-08-16 20:39] LABS: Red Blood Cells-Urine 0-5 SEEN /hpf (0-5)
[2018-08-16 20:40] LABS: White Blood Cells 0-5 SEEN /hpf (0-5)
== END ==
PROVIDERS: Family Provider Family Medicine; PCP Family Medicine; Visit Provider Family Medicine
DX: N39.0 Urinary tract infection, site not specified (principal); R53.83 Other fatigue
CPT/HCPCS: 81001; 87077; 87086; 87088; 87186

== ENCOUNTER → 2018-10-07 | Outpatient (REF) | payer MEDICARE, SELFPAY ==
[2018-07-02 00:31] VITALS: BMI 18.7
[2018-10-08 07:10] LABS: Bacteria 0 SEEN /hpf (None Seen); Color, Urine Yellow (Yellow); Glucose, Dipstick Normal (Normal); Ketone-Dipstick Negative (Negative); Leukocyte Esterase-Dipstick 25 /ul (Negative); Nitrite-Dipstick Negative (Negative); Occult Blood-Urine 10 /ul (Negative); Protein-Dipstick Negative (Negative); Red Blood Cells-Urine 0 SEEN /hpf (0-5); Urine Bilirubin Dipstick Negative (Negative); Urine Clarity Sl. Cloudy (Clear); Urine Urobilinogen Normal (Normal); Urine pH 6.5 (5.0 - 8.0)
[2018-10-08 07:14] LABS: Mucous, Urine 3+ /hpf (<or=2+)
[2018-10-08 07:15] LABS: Squamous Epithelial Cells - UA 0 SEEN /hpf (5-10); White Blood Cells 0-5 SEEN /hpf (0-5)
== END | disposition home or self-care (01) ==
PROVIDERS: Visit Provider Family Medicine
DX: N39.0 Urinary tract infection, site not specified (principal); R35.0 Frequency of micturition
CPT/HCPCS: 81001; 87077; 87086; 87088; 87186

== ENCOUNTER → 2018-10-10 | Outpatient (REF) | payer MEDICARE, SELFPAY ==
[2018-07-02 00:31] VITALS: BMI 18.7
[2018-10-10 08:06] LABS: Hematocrit 34.1 % (37-47); Hemoglobin 11.4 g/dl (12.0-15.0); Mean Corp Hgb Conc 33.4 g/gl (32-36); Mean Corpuscular Hgb 30.8 pg (27.0-32.0); Mean Corpuscular Volume 92.2 fL (81-99); Mean Platelet Vol. 9.7 fl (6.2-12.0); Platelet Count 212 K/mm3 (150-450); RBC Distribution Width CV 12.8 % (11.6-14.6); RBC Distribution Width SD 43.1 fl (35.1-43.9); White Blood Count 5.3 K/mm3 (4.4-11.0)
[2018-10-10 08:13] LABS: Scan Indicated on CBC? Y/N NO
[2018-10-10 08:28] LABS: Anion Gap 4 (5-15); BUN 36 mg/dL (7-18); BUN/Creat Ratio 47.7 RATIO (10-20); Calcium,Total 8.6 mg/dL (8.5-10.1); Chloride 111 mmol/L (98-107); Creatinine, Serum 0.76 mg/dL (0.55-1.02); EST Glomerular Filtration Rate 78 mL/min (>60); Est Glom Filt Rate - Afr Amer 94 mL/min (>60); Glucose 91 mg/dL (74-106); Potassium 4.2 mmol/L (3.5-5.1); Sodium Level 141 mmol/L (136-145); T4 Total, Thyroxin 7.1 ug/dL (4.8-13.9); Thyroid Stim Hormone (TSH) 1.17 uIU/mL (0.358-3.74)
== END | disposition home or self-care (01) ==
PROVIDERS: Visit Provider Family Medicine
DX: E03.9 Hypothyroidism, unspecified (principal); Z79.899 Other long term (current) drug therapy
CPT/HCPCS: 36415; 80048; 84436; 84443; 85027

== ENCOUNTER → 2019-02-10 13:28 | Outpatient (CLI) | payer MEDICARE, SELFPAY ==
[2018-07-02 00:31] VITALS: BMI 18.7
--- NOTE | 2019-02-10 13:33 | CT_ITS ---
STUDY: CT BRAIN WITH AND WITHOUT CONTRAST REASON FOR EXAM: Female, 83 years old. Seizure-like activity RADIATION DOSAGE (If Supplied By Facility): CTDIvol = ( 44.99 ) mGy, DLP = ( 1479.73 ) mGycm TECHNIQUE: Transaxial CT imaging of the brain was performed pre and post contrast administration. The examination was performed with intravenous administration of IV Isovue 370 50mL. Individualized dose optimization techniques were used for this CT. COMPARISON: January 31, 2018 CT head FINDINGS: Normal soft tissue structures. Normal calvarium. There is mild cerebral atrophy with widening of the extra-axial spaces and ventricular dilatation. There are areas of decreased attenuation within the white matter tracts of the supratentorial brain, consistent with microvascular disease changes. Normal basal ganglia and thalami. Normal brainstem. There is mild cerebellar atrophy. There is no intracranial hemorrhage. There are no findings of an acute ischemic infarction. Normal visualized paranasal sinuses. There is calcification of the cavernous carotid arteries. There is no visualized enhancing mass or extra-axial fluid collection. CT/Brain/Head W/WO Contrast IMPRESSION: Atrophy no evidence of acute hemorrhage infarct or edema no evidence of enhancing mass or extra-axial fluid collection. Electronically Signed: Macy Sahu MD at 22:45 EDT Tel , Service support ,
[2019-02-10 14:06] LABS: CREATININE FINGERSTICK 0.8 mg/dL (0.55-1.02); EGFR FINGERSTICK > 60.0000 mL/min (>60)
== END ==
PROVIDERS: Family Provider Family Medicine; PCP Family Medicine; Referring Provider Family Medicine; Visit Provider Family Medicine
DX: R56.9 Unspecified convulsions (principal)
CPT/HCPCS: 70470; Q9967; A4216

== ENCOUNTER → 2019-09-16 11:30 | Outpatient (REF) | payer MEDICARE, SELFPAY ==
[2018-07-02 00:31] VITALS: BMI 18.7
[2019-09-16 14:23] LABS: Color, Urine Yellow (Yellow); Glucose, Dipstick Normal (Normal); Ketone-Dipstick Negative (Negative); Leukocyte Esterase-Dipstick Negative /ul (Negative); Nitrite-Dipstick Negative (Negative); Occult Blood-Urine 250 /ul (Negative); Protein-Dipstick 30 mg/dl (Negative); Specific Gravity, Urine 1.015 (1.002-1.030); Urine Bilirubin Dipstick Negative (Negative); Urine Clarity Sl. Cloudy (Clear); Urine Urobilinogen Normal (Normal)
[2019-09-19 08:11] VITALS: BMI 23.3
[2019-09-22 15:11] VITALS: BMI 26.5
== END ==
PROVIDERS: PCP Family Medicine; Visit Provider Family Medicine
DX: R31.9 Hematuria, unspecified (principal)
CPT/HCPCS: 81002; 87086; 87088

== ENCOUNTER 2019-09-18 20:57 | Inpatient (IN) | payer MEDICARE, SELFPAY ==
[2018-07-02 00:31] VITALS: BMI 18.7
[2019-09-18 20:58] VITALS: BP 189/72; PULSE 78; RESP 16; TEMP 36.9; O2SAT 93; BMI 20.1
--- NOTE | 2019-09-18 21:44 | EKG12_ITS ---
Test Reason : FALL Blood Pressure : / mmHG Vent. Rate : 078 BPM Atrial Rate : 078 BPM P-R Int : 136 ms QRS Dur : 066 ms QT Int : 386 ms P-R-T Axes : 067 065 049 degrees QTc Int : 440 ms Normal sinus rhythm Normal ECG Confirmed by SHIRA CASSIDY, FERMÍN ([id number]), editor magazine ILANA GROVE ([id number]) on 09/22/2019 2:28:53 PM Referred By: Calin Ribeiro Confirmed By:FERMÍN SILVA MD
--- NOTE | 2019-09-18 21:44 | CT_ITS ---
STUDY: CT BRAIN WITHOUT CONTRAST REASON FOR EXAM: Female, 84 years old. FALL,RT SIDED PAIN -- HX:DEMENTIA,HYPOTHYROID RADIATION DOSAGE (If Supplied By Facility): CTDIvol = ( 44.99 ) mGy, DLP = ( 829.85 ) mGycm TECHNIQUE: Transaxial CT imaging of the brain was performed without administration of intravenous contrast material. Individualized dose optimization techniques were used for this CT. COMPARISON: 02/10/2019. FINDINGS: Normal soft tissue structures. Normal calvarium. There is mild cerebral atrophy with widening of the extra-axial spaces and ventricular dilatation. There are areas of decreased attenuation within the white matter tracts of the supratentorial brain, consistent with microvascular disease changes. There is no intracranial hemorrhage. There are no findings of an acute ischemic infarction. Mild mucosal thickening in the right maxillary sinus. Sinuses are otherwise clear. CT/Brain/Head without Contrast IMPRESSION: Trace chronic sinusitis. Otherwise negative unenhanced CT scan of the brain. Electronically Signed: Flaquita Malone MD at 22:50 EDT Tel , Service support ,
--- NOTE | 2019-09-18 21:46 | RAD_ITS ---
STUDY: X-RAY - PELVIS AND RIGHT HIP REASON FOR EXAM: Female, 84 years old. FALL TECHNIQUE: 3 views of the pelvis and hip. COMPARISON: None. FINDINGS: Acute intertrochanteric fracture of the right hip with marked varus angulation. No displacement of the principal fragments. There is distraction of the lesser trochanter. Fracture of the right iliac bone is suspected medially. Evaluation of the sacrum is limited due to bone demineralization. Bony structures are otherwise unremarkable. RAD/HIP, UNI W/ Pelvis 2-3 Views IMPRESSION: 1. Acute intertrochanteric fracture of the right femoral neck with marked varus angulation. 2. Right medial iliac bone fracture. Consider CT of the bony pelvis for further evaluation. Electronically Signed: Flaquita Malone MD at 23:38 EDT Tel , Service support ,
--- NOTE | 2019-09-18 21:47 | RAD_ITS ---
STUDY: X-RAY - RIGHT KNEE REASON FOR EXAM: Female, 84 years old. FALL TECHNIQUE: 2 view(s) of the knee. COMPARISON: None. FINDINGS: Normal visualized distal femur. Normal visualized proximal tibia and fibula. Normal proximal tibiofibular articulation. Normal medial femorotibial compartment. Normal lateral femorotibial compartment. Normal patellofemoral articulation. Trace effusion. The soft tissue structures are unremarkable. RAD/Knee 1 or 2 Views IMPRESSION: Trace effusion of the knee. Electronically Signed: Angel Amaya DO at 10:00 EDT Tel [phone], Service support ,
[2019-09-18] MEDS: 0.9% Normal Saline 1,000 ML 150 ML IV (22:22)
[2019-09-18] MEDS: Morphine 4 MG/ML Syringe IV (22:23)
[2019-09-18] MEDS: Ondansetron 4 MG/2 ML Vial IV (22:24)
[2019-09-18 22:31] LABS: Absolute Lymphocyte Count 1.43 X10^3/uL (0.83-4.51); Absolute Neutrophil Count 5.6 X10^3/uL (2.0-7.7); Basophil# 0.05 X10^3/uL; Basophil% 0.6 % (0-1); Eosinophil# 0.09 X10^3/uL; Eosinophils% 1.1 % (0-5); Hematocrit 36.4 % (37-47); Hemoglobin 11.7 g/dL (12.0-15.0); Lymphocyte # 1.43 X10^3/ul (4.0); Lymphocyte % 17.9 % (19-41); Mean Corp Hgb Conc 32.1 g/dL (32-36); Mean Corpuscular Hgb 29.9 pg (27.0-32.0); Mean Corpuscular Volume 93.1 fL (81-99); Mean Platelet Vol. 9.7 fl (6.2-12.0); Monocyte# 0.71 X10^3/uL; Monocyte% 8.9 % (0-10); NRBC Flagged by Analyzer 0 % (0-5); Neutrophil # 5.62 X10^3/uL (2.7-7.7); Neutrophil % 70.6 % (47-70); Platelet Count 248 K/mm3 (150-450); RBC Distribution Width CV 12.9 % (11.6-14.6); RBC Distribution Width SD 43.7 fl (35.1-43.9); Red Blood Count 3.91 M/mm3 (4.2-5.4)
--- NOTE | 2019-09-18 22:45 | RAD_ITS ---
STUDY: X-RAY CHEST REASON FOR EXAM: Female, 84 years old. FALL TECHNIQUE: Single AP portable view of the chest. COMPARISON: 07/01/2018. FINDINGS: No pleural effusion. Mild hazy opacities in the right lung base and left lower lobe. Normal size heart. Normal mediastinum and pinky. Normal visualized pulmonary arteries. Normal visualized aortic arch and descending thoracic aorta. Normal visualized thoracic spine. Normal visualized ribs, clavicles, and shoulders. There is no demonstrated abnormality of the visualized soft tissue structures of the upper abdomen. RAD/Chest 1 View (Portable) IMPRESSION: 1. Mild hazy opacities in the lungs bilaterally concerning for pneumonia. Electronically Signed: Flaquita Malone MD at 23:34 EDT Tel , Service support ,
[2019-09-18 22:49] LABS: Anion Gap 6 (5-15); BUN 22 mg/dL (7-18); BUN/Creat Ratio 24.1 RATIO (10-20); Calcium,Total 8.5 mg/dL (8.5-10.1); Chloride 111 mmol/L (98-107); Creatinine, Serum 0.91 mg/dL (0.55-1.02); EST Glomerular Filtration Rate 63 mL/min (>60); Est Glom Filt Rate - Afr Amer 76 mL/min (>60); Estimated Creatinine Clearance 41.93 ml/min; Glucose 120 mg/dL (74-106); Potassium 4.5 mmol/L (3.5-5.1); Sodium Level 142 mmol/L (136-145)
[2019-09-18 23:13] VITALS: BP 182/73; PULSE 73; RESP 16; O2SAT 96
--- NOTE | 2019-09-18 23:27 | HP.PCM_ITS ---
Problem List (1) Intertrochanteric fracture of right femur Status: Acute Qualifiers: Encounter type: initial encounter Fracture type: closed Fracture alignment: displaced Qualified Code(s): S72.141A - Displaced intertrochanteric fracture of right femur, initial encounter for closed fracture (2) Iliac bone pain Status: Acute History of Present Illness Date of Admission: 09/18/19 Chief Complaint: RIGHT hip pain The patient is a 84 year old F who lives at [facility] (? assisted living/half-way); and with a significant history of lumbar degenerative lung disease; and hypothyroidism who presented to the emergency department with right hip pain after a fall. Patient denies any dizziness or syncope prior to the fall. She described a fall as mechanical. Hip and pelvis x-ray at emergency department showed acute intertrochanteric fracture of the right femoral neck with marked varus angulation; and right medial iliac bone fracture. At baseline she walks with a walker. Past Medical History Past Medical History (Chronic Problems): Chronic Problems Sacroiliac dysfunction (Chronic) Lumbar degenerative disc disease (Chronic) Coccydynia (Chronic) Allergies No Known Allergies Allergy (Verified 07/02/18 00:04) Home Medications: Ambulatory Orders Medication Instructions Recorded Fluoxetine [Prozac] 20 mg PO DAILY 01/31/18 Levothyroxine [Synthroid] 25 mcg PO DAILY 01/31/18 Meloxicam 15 mg PO DAILY 01/31/18 Docusate Sodium 100 mg PO DAILY 07/02/18 Gabapentin [Neurontin] 300 mg PO TID 07/02/18 Hydrocodone Bitart/Apap 5-325 1 tab PO TID 07/02/18 [Whitman 5/325] Mirtazapine 15 mg PO QHS 07/02/18 Prednisone 5 mg PO DAILY 07/02/18 Surgical History: hysterectomy Psychiatric History: No pertinent psych hx SHANK SANDER History: No pertinent SHANK SANDER history Lives: Custodial Smoking Status: Former smoker - *Family History Maternal History Items: - - She reports that her mother had ulcers of the leg. Paternal History Items: Heart Disease Review of Systems Constitutional: Denies: Chills, Fever, Weight Change HEENT: Denies: Head Aches, Sinus Congestion, Sinus Drainage Cardiovascular: Denies: Chest Pain, Palpitations Respiratory: Denies: Cough, Shortness of breath at rest, Sputum production Gastrointestinal: Denies: Abdominal Pain, Nausea, Vomiting Genitourinary: Denies: Dysuria Musculoskeletal: Reports: Joint Pain - Right hip, Joint Tenderness Skin: Denies: Rash, Wounds Neurological: Denies: Numbness, Tingling, Focal weakness Psychiatric: Denies: Anxiety, Depression, Homicidal Ideations, Suicidal Ideations Hematologic/ Lymphatic: Denies: Easy Bruising, Easy Bleeding VTE Information - Inpt Only VTE Present on Admission: No VTE Mechan Device Prophylaxis: SCD's VTE Pharm Prophylaxis ordered?: No Patient Problems: Active and Suspected Problems Intertrochanteric fracture of right femur (Acute) Iliac bone pain (Acute) - Physical Exam Vitals/I&O's: Vital Signs Temp Pulse Resp BP Pulse Ox 98.4 F 73 16 182/73 H 96 09/18/19 20:58 09/18/19 23:13 09/18/19 23:13 09/18/19 23:13 09/18/19 23:13 Oxygen Delivery Method Room Air Weight: 56.699 kg Body Mass Index (BMI) 20.1 General: Alert, Oriented x3, Cooperative HEENT: Atraumatic, PERRLA, EOMI, Normocephalic Neck: Supple, No JVD, Negative Carotid Bruits Lungs: Clear to auscultation, Normal air movement Cardiovascular: Regular rate, Normal S1, Normal S2, No murmurs Abdomen: Bowel Sounds Present, Soft, Non Tender Extremities: No edema, Capillary Refill Less than 3 Seconds Skin: No rashes, No breakdown Musculoskeletal: Tenderness - Right hip Neurological: Cranial nerves II-XII grossly intact, - - Tremors Psych/Mental Status: Normal Affect, Appropriate Laboratory Results 09/18/19 22:25: WBC 8.0, RBC 3.91 L, Hgb 11.7 L, Hct 36.4 L, MCV 93.1, MCH 29.9, MCHC 32.1, RDW Std Deviation 43.7, RDW Coeff of Mars 12.9, Plt Count 248, MPV 9.7, Immature Gran % (Auto) 0.900, Neut % (Auto) 70.6 H, Lymph % (Auto) 17.9 L, Mellette % (Auto) 8.9, Eos % (Auto) 1.1, Baso % (Auto) 0.6, Absolute Neuts (auto) 5.6, Absolute Lymphs (auto) 1.43, Nucleated RBC % 0 09/18/19 22:25: Sodium 142, Potassium 4.5, Chloride 111 H, Carbon Dioxide 25.0, Anion Gap 6, BUN 22 H, Creatinine 0.91, Estim Creat Clear Calc 41.93, Est GFR (MDRD) Af Amer 76, Est GFR (MDRD) Non-Af 63, BUN/Creatinine Ratio 24.1 H, Glucose 120 H, Calcium 8.5, Troponin I < 0.015 Current Medications Sodium Chloride () 1,000 mls @ 150 mls/hr IV .[id number] [facility] Last Admin: 09/18/19 22:22 Dose: 150 mls/hr Documented by: Assessment/Plan All Active Problems Intertrochanteric fracture of right femur (Acute) Iliac bone pain (Acute) The patient is a 84 year old F with a significant history of lumbar degenerative lung disease; and hypothyroidism who presented to the emergency department with right hip pain after a fall and acute intertrochanteric fracture of the right femoral neck with marked varus angulation; and right medial iliac bone fracture. Acute intertrochanteric fracture of the right femoral neck with marked varus angulation; and right medial iliac bone fracture. Keep patient n.p.o. for possible surgery in a.m.. Gentle IV fluid hydration. Emergent department doctor discussed the case with orthopedic surgeon. Hold home Whitman. Start patient on PRN morphine IV. Of note patient is on home gabapentin. PRN Zofran ordered. Bowel protocol in place. Hold home meloxicam for chronic pain. Check PT/INR in a.m. Per NSQIP pre-op eval tool patient is below average risk for procedure. Depression/anxiety Prozac continued Mirtazapine continued Hypothyroidism Synthroid continued DVT prophylaxis SCDs. Inpatient E&M: 46338 Init Hosp L3
--- NOTE | 2019-09-18 23:42 | CT_ITS ---
STUDY: CT ABDOMEN AND PELVIS WITHOUT CONTRAST REASON FOR EXAM: Female, 84 years old patient with right-sided pain status post fall with right hip fracture. RADIATION DOSAGE (If Supplied By Facility): CTDIvol = ( 9.26 ) mGy, DLP = ( 541.40 ) mGycm TECHNIQUE: Transaxial images were obtained from the dome of the diaphragm to the symphysis pubis without oral contrast, and without intravenous contrast. Sagittal and coronal images were reconstructed. Individualized dose optimization techniques were used for this CT. COMPARISON: None. FINDINGS: There is moderate elevation of the right hemidiaphragm. There is bilateral basilar dependent and subsegmental atelectasis. The visualized heart is at the upper limits of normal in size. Normal liver. There is a solitary gallstone. Normal spleen. There is diffuse atrophy of the pancreas. Normal bilateral adrenal glands. Normal right kidney. Normal left kidney. Normal visualized stomach. There is no evidence for dilated bowel, ascites or pneumoperitoneum. The small bowel has a grossly normal appearance. Stool is visible throughout the colon with scattered diverticula. The appendix is visualized and appears normal. There is multifocal atherosclerotic calcification of the abdominal aorta with elongation and tortuosity, but without a demonstrated aneurysm. Normal inferior vena cava. Normal retroperitoneum. Urinary bladder is nondistended secondary to Neff catheter. There is absence of the uterus consistent with a prior hysterectomy. Normal abdominal wall. The bones appear osteopenic. There is moderate compression of L3 vertebral body. Maximum compression is about 60%. There is a comminuted displaced right-sided intertrochanteric fracture. There is some enlargement of the right-sided thigh muscles probably related to associated hemorrhage arising from the fracture. CT/Abdomen/Pelvis without Cont IMPRESSION: 1. Bilateral basilar airspace disease and atelectasis. 2. Comminuted displaced right-sided intratrochanteric femoral fracture. 3. No CT evidence of acute intra-abdominal disease. 4. Cholelithiasis. 5. Compression fracture of L3. 6. Sigmoid colon diverticulosis without evidence for diverticulitis. Electronically Signed: Denise Guzman MD at 0:30 EDT , Service support ,
--- NOTE | 2019-09-18 23:46 | ED.VISSUMM ---
- ER Visit Summary Date of Service: 09/18/19 Chief Complaint: [Fall with injury to right hip and right knee] History of Present Illness: The patient is a 84 F [presents to the emergency department via EMS after sustaining a fall at home. Patient states that she was walking in her home when she fell injuring her right hip. Patient also fell onto her right knee injuring it. She denies headache or neck pain. She denies chest pain or abdominal pain. Patient has history of depression and hypothyroidism. She denies any back pain. She denies any pain rating down the legs. She complains of pain with movement of the right hip.] Physical Examination: [HEENT-PERRLA, EOMI. Cranial nerves II through XII grossly intact. TMs clear. Mucous membranes moist. No adenopathy. No external evidence of trauma to her head. No C-spine tenderness on palpation. Cardiovascular-regular rate and rhythm without murmur or ectopy Lungs-clear to auscultation, chest wall stable without crepitus or subcu emphysema Abdomen-normoactive bowel sounds, soft, nontender, no rebound or rigidity, no peritoneal signs. Back exam-no tenderness over the thoracic or lumbar spine. Extremities-intact ?4, normal range of motion, normal pulses. Right hip-tender to palpation. Patient has pain with logrolling. She holds the hip initially flexed and does not want to extended. Patient has some ecchymosis and bruising about the right knee with some bony tenderness on exam. Limited range of motion secondary to pain in the hip and knee. Neurovascular intact distally. No open skin noted.] Test Results: [EKG obtained arrival shows sinus rhythm with a ventricular rate of 78 bpm with no acute segment changes. CBC with differential was unremarkable. Chemistries unremarkable. Troponin less than 0.015. CT scan of the brain without contrast showed nothing acute. X-rays of the right hip showed an intertrochanteric right hip fracture with possible fracture of the right iliac wing. X-rays of the right knee showed no fractures.] Emergency Department Course and Treatment: [Patient was medicated morphine and Zofran. Patient had a Neff catheter placed. Case discussed with orthopedics Dr. Calin Natarajan who advised that he would like to perform surgery tomorrow and to admit to hospitalist. CT scan of the pelvis also ordered on recommendation from radiology to evaluate the pelvis and sacrum further.] Treatment Plan: [Admit] Disposition: [Admit] Impression: [Mechanical fall Right hip intertrochanteric fracture] This note was generated with [employer] dictation software. It may contain incorrect words, spelling, and punctuation that were not noted in review of the chart prior to signing ED Disposition - Plan for ED Patient: Referrals: Dulce Woodson MD [Primary Care Provider] -
[2019-09-19] VITALS (13 sets, daily range): BP systolic 99–180; BP diastolic 42–97; PULSE 73–107; RESP 16–18; TEMP 36.5–37.2; O2SAT 94–100; BMI 23.3; BMI 23.4
--- NOTE | 2019-09-19 00:18 | ED.RN ---
[facility] NURSE AT [facility] NOTIFIED OF PT ADMISSION.
--- NOTE | 2019-09-19 00:21 | ED.RN ---
PT DAUGHTER MAGNUS NOTIFIED OF PT ADMISSION.
[2019-09-19] MEDS: 0.9% Normal Saline 1,000 ML 75 ML IV (02:12)
[2019-09-19] MEDS: Morphine 2 MG/ML Syringe IV ×2 (06:22→09:14)
[2019-09-19 07:03] LABS: Absolute Lymphocyte Count 1.83 X10^3/uL (0.83-4.51); Absolute Neutrophil Count 6.3 X10^3/uL (2.0-7.7); Basophil# 0.05 X10^3/uL; Basophil% 0.6 % (0-1); Eosinophil# 0.02 X10^3/uL; Eosinophils% 0.2 % (0-5); Hematocrit 33.9 % (37-47); Hemoglobin 10.8 g/dL (12.0-15.0); Lymphocyte # 1.83 X10^3/ul (4.0); Lymphocyte % 20.4 % (19-41); Mean Corp Hgb Conc 31.9 g/dL (32-36); Mean Corpuscular Hgb 29.4 pg (27.0-32.0); Mean Corpuscular Volume 92.4 fL (81-99); Mean Platelet Vol. 9.2 fl (6.2-12.0); Monocyte# 0.78 X10^3/uL; Monocyte% 8.7 % (0-10); NRBC Flagged by Analyzer 0 % (0-5); Neutrophil # 6.26 X10^3/uL (2.7-7.7); Neutrophil % 69.7 % (47-70); Platelet Count 222 K/mm3 (150-450); RBC Distribution Width CV 12.9 % (11.6-14.6); RBC Distribution Width SD 43.2 fl (35.1-43.9); Red Blood Count 3.67 M/mm3 (4.2-5.4)
[2019-09-19 07:11] LABS: International Normalized Ratio 1.1; Prothrombin Time (Protime)PT. 13.5 SECONDS (11.7-14.9)
[2019-09-19 07:22] LABS: Anion Gap 6 (5-15); BUN 16 mg/dL (7-18); BUN/Creat Ratio 19.6 RATIO (10-20); Calcium,Total 7.9 mg/dL (8.5-10.1); Chloride 109 mmol/L (98-107); Creatinine, Serum 0.82 mg/dL (0.55-1.02); EST Glomerular Filtration Rate 71 mL/min (>60); Est Glom Filt Rate - Afr Amer 86 mL/min (>60); Estimated Creatinine Clearance 48.66 ml/min; Glucose 113 mg/dL (74-106); Potassium 4.3 mmol/L (3.5-5.1); Sodium Level 140 mmol/L (136-145)
[2019-09-19 07:44] LABS: Thyroid Stim Hormone (TSH) 1.53 uIU/mL (0.358-3.74)
--- NOTE | 2019-09-19 07:48 | CT_ITS ---
STUDY: CT PELVIS WITHOUT CONTRAST REASON FOR EXAM: Female, 84 years old patient with femoral fracture. Patient going to surgery this morning. RADIATION DOSAGE (If Supplied By Facility): CTDIvol = ( 17.72 ) mGy, DLP = ( 557.54 ) mGycm TECHNIQUE: Transaxial imaging of the pelvis was performed without oral contrast, and without intravenous administration of contrast material. Multiplanar coronal and sagittal images were reformatted. Individualized dose optimization techniques were used for this CT. COMPARISON: CT abdomen and pelvis dated September 18, 2019 and radiographs of the pelvis and right hip dated September 18, 2019. FINDINGS: Urinary bladder is empty secondary to Neff catheter. Gas is visible in the urinary bladder probably related to Neff catheter. There is no evidence for dilated bowel, ascites or pneumoperitoneum. Normal visualized colon. There is no pelvic fluid. There is no pelvic mass lesion or lymphadenopathy. There is absence of the uterus consistent with a prior hysterectomy. Normal visualized pelvic arteries. Normal abdominal wall. There is a comminuted and displaced intertrochanteric femoral fracture. There is no obvious fracture of the iliac wings or sacrum. The bones are osteopenic. Superior and inferior pubic rami appear to be intact. CT/Pelvis without IV Contrast IMPRESSION: Comminuted displaced intertrochanteric fracture of the right femur. Electronically Signed: Denise Guzman MD at 9:22 EDT , Service support ,
--- NOTE | 2019-09-19 08:40 | PN_ITS ---
Patient Problems: Active and Suspected Problems Intertrochanteric fracture of right femur (Acute) Iliac bone pain (Acute) Subjective: Patient with no acute events overnight per self and per nursing report with planned OR today however planned further imaging per orthopedic surgery discretion prior to our transition. Patient notes ongoing pain primarily with movement to the right lower extremity. Patient again denies any symptoms prior to fall and description more concerning for mechanical. Patient denies fevers, chills, nausea, emesis, abdominal pain, chest pain or dyspnea. Objective: Physical Examination: General: awake, alert, oriented x 3 and cooperative, hard of hearing, laying in the medical surgical bed, notes ongoing discomfort but no obvious distress. Skin: normal color, turgor, no icterus, cyanosis, staged ecchymoses. HEENT: AT/NC, EOMI, PERRLA, mildly dry MM. Lungs: CTA bilaterally, moderate effort, moderate decrease BL bases, no rales, ronchi or wheezing. Heart: Regular rate and rhythm; no gallop, rub audible. Abdomen: soft, NTTP, ND, normal BS. Extremities: no cyanosis, clubbing, status post mechanical fall with right hip fracture, external rotation, peripheral pulses intact, mild bilateral not markedly pitting ankle edema. Neurological: patient awake, alert, oriented x 3; cognitive function suspect baseline intact; pupils equally reactive to light and accomodation; cranial nerves II-XII grossly normal, status post mechanical fall with right hip fracture, movement deferred, left lower extremity movement as well as upper extremity movement appropriate, strength severely global decrease secondary to acute presentation. Psychiatric: affect appears fatigued and uncomfortable, no acute evidence of depressive or anxiety feelings. Vitals/I&O's: Vital Signs Temp Pulse Resp BP Pulse Ox 98.9 F 84 18 157/63 H 100 09/19/19 08:11 09/19/19 08:11 09/19/19 08:11 09/19/19 08:11 09/19/19 08:11 Oxygen Delivery Method Room Air Weight: 145 lb Body Mass Index (BMI) 23.3 Intake and Output for Last 24 Hours 09/17/19 09/18/19 09/19/19 23:59 23:59 23:59 Intake Total 575 / 575 Output Total 900 / 900 Balance -325 / -325 Laboratory Results 09/18/19 22:25: WBC 8.0, RBC 3.91 L, Hgb 11.7 L, Hct 36.4 L, MCV 93.1, MCH 29.9, MCHC 32.1, RDW Std Deviation 43.7, RDW Coeff of Mars 12.9, Plt Count 248, MPV 9.7, Immature Gran % (Auto) 0.900, Neut % (Auto) 70.6 H, Lymph % (Auto) 17.9 L, Reeves % (Auto) 8.9, Eos % (Auto) 1.1, Baso % (Auto) 0.6, Absolute Neuts (auto) 5.6, Absolute Lymphs (auto) 1.43, Nucleated RBC % 0 09/18/19 22:25: Sodium 142, Potassium 4.5, Chloride 111 H, Carbon Dioxide 25.0, Anion Gap 6, BUN 22 H, Creatinine 0.91, Estim Creat Clear Calc 41.93, Est GFR (MDRD) Af Amer 76, Est GFR (MDRD) Non-Af 63, BUN/Creatinine Ratio 24.1 H, Glucose 120 H, Calcium 8.5, Troponin I < 0.015 09/19/19 06:45: COVID-19 (JOSE) Cancelled 09/19/19 06:48: WBC 9.0, RBC 3.67 L, Hgb 10.8 L, Hct 33.9 L, MCV 92.4, MCH 29.4, MCHC 31.9 L, RDW Std Deviation 43.2, RDW Coeff of Mars 12.9, Plt Count 222, MPV 9.2, Immature Gran % (Auto) 0.400, Neut % (Auto) 69.7, Lymph % (Auto) 20.4, Reeves % (Auto) 8.7, Eos % (Auto) 0.2, Baso % (Auto) 0.6, Absolute Neuts (auto) 6.3, Absolute Lymphs (auto) 1.83, Nucleated RBC % 0 09/19/19 06:48: PT 13.5, INR 1.1 09/19/19 06:48: Sodium 140, Potassium 4.3, Chloride 109 H, Carbon Dioxide 25.0, Anion Gap 6, BUN 16, Creatinine 0.82, Estim Creat Clear Calc 48.66, Est GFR (MDRD) Af Amer 86, Est GFR (MDRD) Non-Af 71, BUN/Creatinine Ratio 19.6, Glucose 113 H, Calcium 7.9 L 09/19/19 06:48: TSH 1.53 09/19/19 06:48: Blood Type O POSITIVE, Antibody Screen NEGATIVE Current Medications Acetaminophen (Tylenol) 650 mg PO Q6H PRN PRN PRN Reason: Pain Score 1-10/Temp > 100.7 F Dextrose (D50w Syringe) 0 gm IV X1 PRN; Protocol PRN Reason: Hypoglycemia Docusate Sodium (Colace) 100 mg PO DAILY [facility] Fluoxetine HCl (Prozac) 20 mg PO DAILY [facility] Gabapentin (Neurontin) 300 mg PO TID [facility] Last Admin: 09/19/19 05:42 Dose: Not Given Documented by: Glucagon () 1 mg IM .X1 PRN PRN Reason: Hypoglycemia Sodium Chloride () 1,000 mls @ 75 mls/hr IV .[id number] [facility] Last Admin: 09/19/19 02:12 Dose: 75 mls/hr Documented by: Sodium Chloride () 250 mls @ 15 mls/hr IV .[id number] PRN PRN Reason: Saline Flush Levothyroxine Sodium (Synthroid) 25 mcg PO DAILY@0600 [facility] Last Admin: 09/19/19 05:43 Dose: Not Given Documented by: Mirtazapine (Remeron) 15 mg PO QHS [facility] Morphine Sulfate () 2 mg IV Q3H PRN PRN PRN Reason: Pain Score 6-10/10 Last Admin: 09/19/19 06:22 Dose: 2 mg Documented by: Nutritional Formula (Lactose Free) (Ensure Enlive) 120 ml PO 4X/DAY [facility] Last Admin: 09/19/19 08:07 Dose: Not Given Documented by: Nystatin (Mycostatin Powder) 1 applic TOPICAL BID [facility]; Protocol Ondansetron HCl (Zofran) 4 mg IV Q8H PRN PRN PRN Reason: NAUSEA/VOMITING [facility] () [facility] Senna/Docusate Sodium (Senokot-S, Leah-Colace) 2 tablet PO BID PRN PRN PRN Reason: Constipation Sodium Chloride () 10 - 40 ml IV UD PRN PRN Reason: SALINE FLUSH STROKE Vital Signs/Narrative: Vital Signs Temp Pulse Resp BP Pulse Ox 09/19/19 08:11 98.9 F 84 18 157/63 H 100 09/19/19 08:03 94 Medical Necessity - Tobacco Use Smoking Status: Former smoker Assessment/Plan All Active Problems Intertrochanteric fracture of right femur (Acute) Iliac bone pain (Acute) The patient is an 84 y/o F residing at Assisted Living w/ PMHx: Anxiety and Depression, Hypothyroidism, Dementia unclear type with unclear behavioral disturbance history, Multiple sclerosis, Former tobacco use, Chronic back pain and debility with mechanical fall and unfortunate immediate right hip pain and deformity prompting ED presentation. 1. General debility, R hip pain s/p mechanical fall w/ R femoral neck fracture and right medial iliac bone fracture: ED evaluation EKG was sinus rhythm with no acute evidence of ischemia, unremarkable CBC and BMP, troponin less than 0.015, CT head with no acute intracranial bleeding, plain films of the right hip with intertrochanteric right hip fracture evident with a possible fracture of the right iliac wing, right knee plain film with no acute findings, follow-up CT abdomen and pelvis with bilateral basilar airspace disease and atelectasis, comminuted displaced right sided intertrochanteric femoral fracture with no acute intra-abdominal findings, cholelithiasis, compression fracture of L3, sigmoid diverticulosis. Following admission directed per orthopedic surgery CT pelvis obtained demonstrating a comminuted displaced intertrochanteric fracture of the right femur. Patient mid to medical surgical floor, n.p.o. status after midnight, transitioning to the OR following further imaging resulted as noted, maintain on judicious hydration, normal TSH, Mag level pending, requested UA, UCx, cavazos placement, monitor I/Os, frequent positioning, fall precautions. Pain, anti-emetic regimen. PT/OT following operative intervention. CM consulted for discharge planning. 2. Dementia, unclear type with unclear behavioral disturbance history: Complicates presentation, resides at assisted living, maintain on fall and aspiration precautions, initiate therapies following operative intervention, case management consultation for discharge planning as will need transition to skilled component. 3. Multiple sclerosis: Continue patient on low-dose prednisone therapy, as noted complicates presentation, maintain on fall precautions, therapy initiation following operative intervention. 4. Anxiety and depression: We will continue patient home Prozac and mirtazapine regimen. 5. Hypothyroidism: Continue home synthroid regimen, TSH normal level. 6. DVT prophylaxis: SCDs, Eliquis initiation postop per orthopedic surgery. 7. CODE STATUS: DNR CCA, intubation allowed. Inpatient E&M: 27737 Subs Hosp L2
--- NOTE | 2019-09-19 09:00 | RAD_ITS ---
STUDY: X-RAY -RIGHT HIP REASON FOR EXAM: Female, 84 years old. ORIF. 123.2 SEC. FL. NO PELVIS IMAGE TAKEN TECHNIQUE: 123.2 seconds of fluoroscopy time. 5 saved images. COMPARISON: 09/18/2019 FINDINGS: Femoral medullary yi with distal interlocking screw and right femoral neck fixation screw spanning intertrochanteric fracture with similar amount of displacement involving the lesser trochanter. RAD/Hip Min 2 Views (Portable) IMPRESSION: Fluoroscopic guidance for right IT fracture fixation. Electronically Signed: Yazan Amaya MD ([place]) at 13:35 EDT , Service support ,
[2019-09-19] MEDS: 0.9% Saline Lock 10 ML Syringe IV (09:14)
--- NOTE | 2019-09-19 10:15 | CON.PCM_ITS ---
Reason for Consult Date of Consultation: 09/19/19 Reason for Consultation: Right hip displaced fracture femoral neck History of Present Illness: The patient is a 84 year old F status post ground-level fall treat her right hip x-rays demonstrated displaced femoral neck fracture Past Medical History Past Medical History (Chronic Problems): Chronic Problems Sacroiliac dysfunction (Chronic) Lumbar degenerative disc disease (Chronic) Coccydynia (Chronic) Allergies No Known Allergies Allergy (Verified 07/02/18 00:04) Home Medications: Ambulatory Orders Medication Instructions Recorded Fluoxetine [Prozac] 20 mg PO DAILY 01/31/18 Levothyroxine [Synthroid] 25 mcg PO DAILY 01/31/18 Meloxicam 15 mg PO DAILY 01/31/18 Docusate Sodium 100 mg PO DAILY 07/02/18 Gabapentin [Neurontin] 300 mg PO TID 07/02/18 Hydrocodone Bitart/Apap 5-325 1 tab PO TID 07/02/18 [[employer] 5/325] Mirtazapine 15 mg PO QHS 07/02/18 Prednisone 5 mg PO DAILY 07/02/18 Surgical History: hysterectomy Psychiatric History: No pertinent psych hx 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 Paternal History Items: Heart Disease Patient Problems: Active and Suspected Problems Intertrochanteric fracture of right femur (Acute) Iliac bone pain (Acute) Subjective: Seen with daughter at bedside comfortable alert and oriented - Physical Exam Vitals/I&O's: Vital Signs Temp Pulse Resp BP Pulse Ox 98.9 F 84 18 157/63 H 100 09/19/19 08:11 09/19/19 08:11 09/19/19 08:11 09/19/19 08:11 09/19/19 08:11 Oxygen Delivery Method Room Air Weight: 145 lb Body Mass Index (BMI) 23.3 Intake and Output for Last 24 Hours 09/17/19 09/18/19 09/19/19 23:59 23:59 23:59 Intake Total 575 / 575 Output Total 900 / 900 Balance -325 / -325 General: Alert, Oriented x3, Cooperative, No apparent distress Extremities: Peripheral Pulses Normal - 1 out of 4 bilateral, no joint effusion or ecchymosis about the knee no open lesions about the hip compartment soft able to wiggle toes Microbiology Past 72 Hours 09/19/19 06:45 Mucosa - Nasopharyngeal Coronavirus COVID-19 PCR - Final Laboratory Results 09/18/19 22:25: WBC 8.0, RBC 3.91 L, Hgb 11.7 L, Hct 36.4 L, MCV 93.1, MCH 29.9, MCHC 32.1, RDW Std Deviation 43.7, RDW Coeff of Mars 12.9, Plt Count 248, MPV 9.7, Immature Gran % (Auto) 0.900, Neut % (Auto) 70.6 H, Lymph % (Auto) 17.9 L, Stanton % (Auto) 8.9, Eos % (Auto) 1.1, Baso % (Auto) 0.6, Absolute Neuts (auto) 5.6, Absolute Lymphs (auto) 1.43, Nucleated RBC % 0 09/18/19 22:25: Sodium 142, Potassium 4.5, Chloride 111 H, Carbon Dioxide 25.0, Anion Gap 6, BUN 22 H, Creatinine 0.91, Estim Creat Clear Calc 41.93, Est GFR (MDRD) Af Amer 76, Est GFR (MDRD) Non-Af 63, BUN/Creatinine Ratio 24.1 H, Glucose 120 H, Calcium 8.5, Troponin I < 0.015 09/19/19 06:45: COVID-19 (JOSE) Cancelled 09/19/19 06:48: WBC 9.0, RBC 3.67 L, Hgb 10.8 L, Hct 33.9 L, MCV 92.4, MCH 29.4, MCHC 31.9 L, RDW Std Deviation 43.2, RDW Coeff of Mars 12.9, Plt Count 222, MPV 9.2, Immature Gran % (Auto) 0.400, Neut % (Auto) 69.7, Lymph % (Auto) 20.4, Stanton % (Auto) 8.7, Eos % (Auto) 0.2, Baso % (Auto) 0.6, Absolute Neuts (auto) 6.3, Absolute Lymphs (auto) 1.83, Nucleated RBC % 0 09/19/19 06:48: PT 13.5, INR 1.1 09/19/19 06:48: Sodium 140, Potassium 4.3, Chloride 109 H, Carbon Dioxide 25.0, Anion Gap 6, BUN 16, Creatinine 0.82, Estim Creat Clear Calc 48.66, Est GFR (MDRD) Af Amer 86, Est GFR (MDRD) Non-Af 71, BUN/Creatinine Ratio 19.6, Glucose 113 H, Calcium 7.9 L 09/19/19 06:48: TSH 1.53 09/19/19 06:48: Blood Type O POSITIVE, Antibody Screen NEGATIVE Current Medications Acetaminophen (Tylenol) 650 mg PO Q6H PRN PRN PRN Reason: Pain Score 1-10/Temp > 100.7 F Dextrose (D50w Syringe) 0 gm IV X1 PRN; Protocol PRN Reason: Hypoglycemia Docusate Sodium (Colace) 100 mg PO DAILY [facility] Fluoxetine HCl (Prozac) 20 mg PO DAILY [facility] Gabapentin (Neurontin) 300 mg PO TID [facility] Last Admin: 09/19/19 05:42 Dose: Not Given Documented by: Glucagon () 1 mg IM .X1 PRN PRN Reason: Hypoglycemia Sodium Chloride () 1,000 mls @ 75 mls/hr IV .[id number] [facility] Last Admin: 09/19/19 02:12 Dose: 75 mls/hr Documented by: Sodium Chloride () 250 mls @ 15 mls/hr IV .[id number] PRN PRN Reason: Saline Flush Levothyroxine Sodium (Synthroid) 25 mcg PO DAILY@0600 [facility] Last Admin: 09/19/19 05:43 Dose: Not Given Documented by: Mirtazapine (Remeron) 15 mg PO QHS [facility] Morphine Sulfate () 2 mg IV Q3H PRN PRN PRN Reason: Pain Score 6-10/10 Last Admin: 09/19/19 09:14 Dose: 2 mg Documented by: Nutritional Formula (Lactose Free) (Ensure Enlive) 120 ml PO 4X/DAY [facility] Last Admin: 09/19/19 08:07 Dose: Not Given Documented by: Nystatin (Mycostatin Powder) 1 applic TOPICAL BID [facility]; Protocol Ondansetron HCl (Zofran) 4 mg IV Q8H PRN PRN PRN Reason: NAUSEA/VOMITING Prednisone () [facility] Senna/Docusate Sodium (Senokot-S, Leah-Colace) 2 tablet PO BID PRN PRN PRN Reason: Constipation Sodium Chloride () 10 - 40 ml IV UD PRN PRN Reason: SALINE FLUSH Last Admin: 09/19/19 09:14 Dose: 10 ml Documented by: Assessment/Plan All Active Problems Intertrochanteric fracture of right femur (Acute) Iliac bone pain (Acute) Right hip displaced comminuted intertrochanteric femur fracture CT ruled out any pelvic fracture Plan for OR intertrochanteric fixation with cephalo-medullary yi Antibiotics on-call the OR medically cleared we will proceed
[2019-09-19] MEDS: Bupiv/Epi 0.5% Mpf 30 ML Vial (11:55)
--- NOTE | 2019-09-19 12:13 | PCM.OPRPT ---
Report of Operation Date of Procedure: 09/19/19 Description of Surgical Findings:: Preoperative diagnosis: Right hip intertrochanteric femur fracture Postoperative diagnosis: Same Procedure: Cephalo-medullary fixation right hip Implants: Synthes short nail 125 deg and mm diameter 95 mm helical blade 38 mm screw Anesthesia: General EBL: 20 Complications: None Condition: Stable to PACU Indication for procedure: 84-year-old female patient with ground-level fall sustaining injury to hip. Fracture demonstrated intertrochanteric femur fracture pattern. Risk benefits and alternatives were reviewed including risk of bleeding infection nerve, artery, bone, tissue damage, blood clot need for further surgery and continued pain. Procedure: Patient met in the preoperative holding area once again the operative extremity was identified by both patient and physician and was marked. Patient was met by anesthesia and IV was started . patient was brought back to the to the operating room anesthesia was started. Patient was then positioned on the fracture table all bony prominences were well-padded. patient was then positioned with abduction internal rotation and traction and fluoroscopy was brought in to ensure that an adequate reduction could be performed. We did require the use of a crutch to manipulate the fragment into an appropriate reduction several times were made at the reduction and anatomic reduction was not able to be achieved however it was felt after extensive attempts and ballpark of reduction was an acceptable amount not necessitating the need for further open reduction techniques patient was then prepped and draped in usual sterile fashion and timeout was called to ensure the proper patient procedure and extremity were being contemplated. Fluoroscopy was used to michelle the tip of the greater trochanter and a 3 fingerbreadth incision was made 2 finger breaths proximal to the tip of the greater trochanter. Was carried carried down through the skin and subcutaneous tissue as well as the gluteal fascia. Guidepin was then inserted through the tip of the greater trochanter directed towards the level of lesser trochanter this was checked in both AP and lateral projections. An opening reamer was performed. Following this was the insertion of the nail the appropriate height jig was used and a triple trocar sleeve was advanced to the skin and a stab incision was made at the trocar was inserted to the level of the bone and a guidepin was placed into the femoral neck and head checked on both AP and lateral projections. This was then measured and appropriately sized helical blade was inserted the nail was locked proximally the fracture was compressed and a locking screw was placed distally the same incision was extended slightly distally to allow the insertion of the trocar for the transverse screw. This was then drilled and measured under fluoroscopy and the appropriate size screw was inserted. Final AP and lateral projections were saved to the PACS system of the entire construct the wounds were thoroughly irrigated the fascia was closed with #1 [id number] Vicryls followed by 2-0 Vicryl in the subcutaneous tissues followed by pauline in the skin. 0.5% Marcaine with epinephrine was injected into the subcutaneous tissues dressing was applied form of Xeroform 4 x 4 ABD and Ioban tape. Patient tolerated procedure well there is no intraoperative complications and was brought back to the PACU in stable condition.
[2019-09-19] MEDS: Lactated Ringers 1,000 ML 125 ML IV (12:39)
[2019-09-19] MEDS: Cefazolin 1 GM/50 ML BAG IV ×2 (12:51→21:43)
[2019-09-19 14:43] LABS: Mucous, Urine 0 SEEN /hpf (<or=2+); Red Blood Cells-Urine 0 SEEN /hpf (0-5)
[2019-09-19 14:44] LABS: Color, Urine Yellow (Yellow); Glucose, Dipstick Normal (Normal); Ketone-Dipstick Negative (Negative); Leukocyte Esterase-Dipstick 100 /ul (Negative); Nitrite-Dipstick Negative (Negative); Occult Blood-Urine Negative /ul (Negative); Protein-Dipstick 15 mg/dl (Negative); Specific Gravity, Urine 1.025 (1.002-1.030); Urine Bilirubin Dipstick Negative (Negative); Urine Clarity Sl. Cloudy (Clear); Urine Urobilinogen Normal (Normal)
[2019-09-19 14:50] LABS: Bacteria RARE /hpf (None Seen); Squamous Epithelial Cells - UA 0-5 SEEN /hpf (5-10); White Blood Cells 0-5 SEEN /hpf (0-5)
[2019-09-19] MEDS: Acetaminophen 500 MG Tablet 1000 MG PO ×2 (15:17→21:45)
[2019-09-19] MEDS: Gabapentin 300 MG Capsule PO ×2 (15:18→21:45)
[2019-09-19] MEDS: Nystatin Powder 15gm Bottle 1 APPLIC TOPICAL ×2 (15:18→21:43)
[2019-09-19] MEDS: predniSONE 5 MG Tablet PO (15:20)
[2019-09-19] MEDS: Docusate Sodium 100 MG Capsule PO (15:20)
[2019-09-19] MEDS: FLUoxetine 20 MG Capsule PO (15:22)
--- NOTE | 2019-09-19 18:23 | CASEMGMT ---
Social Work Consult: Discharge Planning Met with patient in room. Introduced self as well as social science teacher role. Patient agreeable to speaking with this social science teacher. Patient stating to currently live at [facility] for the past 2 years. Patient stating to be unsure of plan for discharge. Patient is open to [facility] placement, if this is the recommendation. Patient is requesting for this social science teacher to speak with patient daughter, Chevy (HCPOA) further about discharge planning. Telephone call to Chevy. Introduced self as well as social science teacher role. Chevy open to speaking with this social science teacher. Chevy is agreeable to chcf placement for therapy and then returning to [place]. Chevy stating first choice is TCU. Chevy stating to not be interested in patient going to a chcf outside of the hospital due to current pandemic. This social science teacher educating Chevy that unable to confirm if there is an open bed for patient at this time but a referral will be made and social work will follow up with Chevy and patient. Chevy voicing no further questions. Telephone call to TCU referral line. Voicemail left with referral. Social Work to continue to follow as needed. James Torres MSW, KANE
[2019-09-19] MEDS: 0.9% Normal Saline 1,000 ML 100 ML IV (19:26)
[2019-09-19] MEDS: Mirtazapine 15 MG Tablet PO (21:45)
[2019-09-20] VITALS (16 sets, daily range): BP systolic 96–147; BP diastolic 34–62; PULSE 88–105; RESP 16–18; TEMP 36.4–37.2; O2SAT 94–98; BMI 23.4
[2019-09-20] MEDS: Cefazolin 1 GM/50 ML BAG IV ×3 (05:05→22:22)
[2019-09-20 05:37] LABS: Hematocrit 19.8 % (37-47); Hemoglobin 6.4 g/dL (12.0-15.0); Mean Corp Hgb Conc 32.3 g/dL (32-36); Mean Corpuscular Hgb 30.2 pg (27.0-32.0); Mean Corpuscular Volume 93.4 fL (81-99); Mean Platelet Vol. 9.6 fl (6.2-12.0); Platelet Count 160 K/mm3 (150-450); RBC Distribution Width SD 43.9 fl (35.1-43.9); Red Blood Count 2.12 M/mm3 (4.2-5.4); White Blood Count 9.3 K/mm3 (4.4-11.0)
[2019-09-20 05:49] LABS: Anion Gap 7 (5-15); BUN 16 mg/dL (7-18); BUN/Creat Ratio 19.5 RATIO (10-20); Calcium,Total 7.4 mg/dL (8.5-10.1); Chloride 109 mmol/L (98-107); Creatinine, Serum 0.82 mg/dL (0.55-1.02); EST Glomerular Filtration Rate 71 mL/min (>60); Est Glom Filt Rate - Afr Amer 86 mL/min (>60); Estimated Creatinine Clearance 48.66 ml/min; Glucose 160 mg/dL (74-106); Potassium 4.4 mmol/L (3.5-5.1); Sodium Level 137 mmol/L (136-145)
[2019-09-20] MEDS: Gabapentin 300 MG Capsule PO ×3 (06:17→22:17)
[2019-09-20] MEDS: APIXABAN 2.5 MG TABLET PO ×2 (06:17→22:17)
[2019-09-20] MEDS: Levothyroxine 25 MCG TABLET PO (06:17)
[2019-09-20] MEDS: Acetaminophen 500 MG Tablet 1000 MG PO ×3 (06:17→22:18)
--- NOTE | 2019-09-20 06:46 | PCM.PN.HOSP ---
Patient Problems: Active and Suspected Problems Intertrochanteric fracture of right femur (Acute) Iliac bone pain (Acute) Subjective: The patient is an 84 y/o F residing at Assisted Living w/ PMHx: Anxiety and Depression, Hypothyroidism, Dementia unclear type with unclear behavioral disturbance history, Multiple sclerosis, Former tobacco use, Chronic back pain and debility with mechanical fall and unfortunate immediate right hip pain and deformity prompting ED presentation. ED evaluation EKG was sinus rhythm with no acute evidence of ischemia, unremarkable CBC and BMP, troponin less than 0.015, CT head with no acute intracranial bleeding, plain films of the right hip with intertrochanteric right hip fracture evident with a possible fracture of the right iliac wing, right knee plain film with no acute findings, follow-up CT abdomen and pelvis with bilateral basilar airspace disease and atelectasis, comminuted displaced right sided intertrochanteric femoral fracture with no acute intra-abdominal findings, cholelithiasis, compression fracture of L3, sigmoid diverticulosis. Following admission directed per orthopedic surgery CT pelvis obtained demonstrating a comminuted displaced intertrochanteric fracture of the right femur. [facility]19 Cephalo-medullary fixation right hip per Dr. Natarajan. TSH and magnesium normal. Trop normal x 1. UA without evidence UTI. 09/19/19 post-op decreased UOP with improvement with IVF bolus. 09/20/19 AM Hgb 6.4, 2 u PRBC ordered, will repeat Hgb following. D/C cavazos following and continue to monitor I/Os, frequent positioning, fall precautions. Pain, anti-emetic regimen. PT/OT, CM consulted for discharge planning. May need to hold eliquis if Hgb drops again. Also noted, dysphagia during admission, suspect chronic, altered diet to soft mechanical, consult speech therapy, encourage head of bed and aspiration precautions in interim. Patient overnight with no acute events per self and per nursing report however she does note being more fatigued and tired and labs this morning with significant hemoglobin reduction to 6.4 with 2 unit PRBC ordered and pending. Also staff has noted that patient has been having issues with swallowing specifically with Tylenol the day prior and pancakes this AM pending speech evaluation. Patient denies fevers, chills, nausea, emesis, abdominal pain, chest pain or dyspnea. Objective: Physical Examination: General: awake, alert, oriented x 3 and cooperative, hard of hearing, seated upright in a bedside chair, no acute distress, fatigued appearance. Skin: normal color, turgor, no icterus, cyanosis, staged ecchymoses, s/p R hip fx repair, dressing in place. HEENT: AT/NC, EOMI, PERRLA, improved MMM. Lungs: CTA bilaterally, moderate effort, moderate decrease BL bases, no rales, ronchi or wheezing. Heart: Regular rate and rhythm; no gallop, rub audible. Abdomen: soft, NTTP, ND, normal BS. Extremities: no cyanosis, clubbing, status post mechanical fall with right hip fracture, s/p repair, dressing in place, peripheral pulses in place, minimal ankle non-pitting edema. Neurological: patient awake, alert, oriented as noted; cognitive function baseline intact; pupils equally reactive to light and accomodation; cranial nerves II-XII grossly normal, status post mechanical fall with right hip fracture s/p repair, movement improving, strength still moderately to severely globally decreased. Psychiatric: affect appears fatigued and more tired than day prior, no acute evidence of depressive or anxiety feelings. Vitals/I&O's: Vital Signs Temp Pulse Resp BP Pulse Ox 98.0 F 90 18 108/43 L 94 09/20/19 02:00 09/20/19 02:00 09/20/19 02:00 09/20/19 02:00 09/20/19 02:00 Oxygen Flow Rate (L/min) 1 Oxygen Delivery Method Nasal Cannula Weight: 145 lb 0.004 oz Body Mass Index (BMI) 23.3 Intake and Output for Last 24 Hours 09/18/19 09/19/19 09/20/19 23:59 23:59 23:59 Intake Total 4578.33 / 4578.33 736.67 / 736.67 Output Total 1575 / 1575 650 / 650 Balance 3003.33 / 3003.33 86.67 / 86.67 Microbiology Past 72 Hours 09/19/19 06:45 Mucosa - Nasopharyngeal Coronavirus COVID-19 PCR - Final Laboratory Results 09/19/19 06:45: COVID-19 (JOSE) Cancelled 09/19/19 06:48: WBC 9.0, RBC 3.67 L, Hgb 10.8 L, Hct 33.9 L, MCV 92.4, MCH 29.4, MCHC 31.9 L, RDW Std Deviation 43.2, RDW Coeff of Mars 12.9, Plt Count 222, MPV 9.2, Immature Gran % (Auto) 0.400, Neut % (Auto) 69.7, Lymph % (Auto) 20.4, [place] % (Auto) 8.7, Eos % (Auto) 0.2, Baso % (Auto) 0.6, Absolute Neuts (auto) 6.3, Absolute Lymphs (auto) 1.83, Nucleated RBC % 0 09/19/19 06:48: PT 13.5, INR 1.1 09/19/19 06:48: Sodium 140, Potassium 4.3, Chloride 109 H, Carbon Dioxide 25.0, Anion Gap 6, BUN 16, Creatinine 0.82, Estim Creat Clear Calc 48.66, Est GFR (MDRD) Af Amer 86, Est GFR (MDRD) Non-Af 71, BUN/Creatinine Ratio 19.6, Glucose 113 H, Calcium 7.9 L 09/19/19 06:48: TSH 1.53 09/19/19 06:48: Blood Type O POSITIVE, Antibody Screen NEGATIVE 09/19/19 06:48: Magnesium 2.0 09/19/19 14:38: Urine Color Yellow, Urine Clarity Sl. Cloudy, Urine pH 5.0, Ur Specific [place] 1.025, Urine Protein 15 H, Urine Glucose (UA) Normal, Urine Ketones Negative, Urine Occult Blood Negative, Urine Nitrite Negative, Urine Bilirubin Negative, Urine Urobilinogen Normal, Ur Leukocyte Esterase 100 H, Urine RBC 0 SEEN, Urine WBC 0-5 SEEN, Ur Squamous Epith Cells 0-5 SEEN, Urine Bacteria RARE, Urine Mucus 0 SEEN 09/20/19 05:22: WBC 9.3, RBC 2.12 L, Hgb 6.4 L, Hct 19.8 L, MCV 93.4, MCH 30.2, MCHC 32.3, RDW Std Deviation 43.9, RDW Coeff of [place] 13.0, Plt Count 160, MPV 9.6 09/20/19 05:22: Sodium 137, Potassium 4.4, Chloride 109 H, Carbon Dioxide 21.0, Anion Gap 7, BUN 16, Creatinine 0.82, Estim Creat Clear Calc 48.66, Est GFR (MDRD) Af Amer 86, Est GFR (MDRD) Non-Af 71, BUN/Creatinine Ratio 19.5, Glucose 160 H, Calcium 7.4 L Current Medications Acetaminophen (Tylenol) 1,000 mg PO Q8 [facility] Last Admin: 09/20/19 06:17 Dose: 1,000 mg Documented by: Apixaban (Eliquis) 2.5 mg PO BID [facility] Last Admin: 09/20/19 06:17 Dose: 2.5 mg Documented by: Dextrose (D50w Syringe) 0 gm IV X1 PRN; Protocol PRN Reason: Hypoglycemia Docusate Sodium (Colace) 100 mg PO DAILY [facility] Last Admin: 09/19/19 15:20 Dose: 100 mg Documented by: Fluoxetine HCl (Prozac) 20 mg PO DAILY [facility] Last Admin: 09/19/19 15:22 Dose: 20 mg Documented by: Gabapentin (Neurontin) 300 mg PO TID [facility] Last Admin: 09/20/19 06:17 Dose: 300 mg Documented by: Glucagon () 1 mg IM .X1 PRN PRN Reason: Hypoglycemia Hydromorphone HCl (Dilaudid Inj) 0.5 mg IV Q2H PRN PRN PRN Reason: Pain Score 6-10/10 Sodium Chloride () 250 mls @ 15 mls/hr IV .[id number] PRN PRN Reason: Saline Flush Cefazolin Sodium () 1 gm in 50 mls @ 100 mls/hr IV Q8H [facility] Last Infusion: 09/20/19 05:35 Dose: Infused Documented by: Levothyroxine Sodium (Synthroid) 25 mcg PO DAILY@0600 [facility] Last Admin: 09/20/19 06:17 Dose: 25 mcg Documented by: Mirtazapine (Remeron) 15 mg PO QHS [facility] Last Admin: 09/19/19 21:45 Dose: 15 mg Documented by: Morphine Sulfate () 2 mg IV Q3H PRN PRN PRN Reason: Pain Score 6-10/10 Last Admin: 09/19/19 09:14 Dose: 2 mg Documented by: Nutritional Formula (Lactose Free) (Ensure Enlive) 120 ml PO 4X/DAY [facility] Last Admin: 09/19/19 21:43 Dose: 120 ml Documented by: Nystatin (Mycostatin Powder) 1 applic TOPICAL BID [facility]; Protocol Last Admin: 09/19/19 21:43 Dose: 1 applicatio Documented by: Ondansetron HCl (Zofran) 4 mg IV Q6H PRN PRN PRN Reason: NAUSEA Oxycodone HCl (Oxyir) 5 - 10 mg PO Q4H PRN PRN PRN Reason: Pain Score 4-10/10 Prednisone () 5 mg PO DAILYCM [facility] Last Admin: 09/19/19 15:20 Dose: 5 mg Documented by: Senna/Docusate Sodium (Senokot-S, Leah-Colace) 2 tablet PO BID PRN PRN PRN Reason: Constipation Sodium Chloride () 10 - 40 ml IV UD PRN PRN Reason: SALINE FLUSH Last Admin: 09/19/19 09:14 Dose: 10 ml Documented by: Medical Necessity - Tobacco Use Smoking Status: Former smoker Assessment/Plan All Active Problems Intertrochanteric fracture of right femur (Acute) Iliac bone pain (Acute) The patient is an 84 y/o F residing at Assisted Living w/ PMHx: Anxiety and Depression, Hypothyroidism, Dementia unclear type with unclear behavioral disturbance history, Multiple sclerosis, Former tobacco use, Chronic back pain and debility with mechanical fall and unfortunate immediate right hip pain and deformity prompting ED presentation. 1. General debility, R hip pain s/p mechanical fall w/ R femoral neck fracture and right medial iliac bone fracture: ED evaluation EKG was sinus rhythm with no acute evidence of ischemia, unremarkable CBC and BMP, troponin less than 0.015, CT head with no acute intracranial bleeding, plain films of the right hip with intertrochanteric right hip fracture evident with a possible fracture of the right iliac wing, right knee plain film with no acute findings, follow-up CT abdomen and pelvis with bilateral basilar airspace disease and atelectasis, comminuted displaced right sided intertrochanteric femoral fracture with no acute intra-abdominal findings, cholelithiasis, compression fracture of L3, sigmoid diverticulosis. Following admission directed per orthopedic surgery CT pelvis obtained demonstrating a comminuted displaced intertrochanteric fracture of the right femur. [facility] [place] [facility]19 Cephalo-medullary fixation right hip per Dr. Natarajan. TSH and magnesium normal. Trop normal x 1. UA without evidence UTI. 09/19/19 post-op decreased UOP with improvement with IVF bolus. 09/20/19 AM Hgb 6.4, 2 u PRBC ordered, will repeat Hgb following. D/C cavazos following and continue to monitor I/Os, frequent positioning, fall precautions. Pain, anti-emetic regimen. PT/OT, CM consulted for discharge planning. May need to hold eliquis if Hgb drops again. 2. Acute Normocytic Anemia: Secondary to acute blood loss with recent OR, admission Hgb 11.7-->10.8-->09/20/19 Hgb 6.4, 2 u PRBC ordered, will repeat Hgb following and if needed may administered lasix in between units. 3. Dysphagia, unclear etiology, suspect chronic component: We will alter diet to soft mechanical, consult speech therapy, encourage head of bed and aspiration precautions in interim. 4. Dementia, unclear type with unclear behavioral disturbance history: Complicates presentation, resides at assisted living, maintain on fall and aspiration precautions, initiate therapies following operative intervention, case management consultation for discharge planning as will need transition to skilled component. 5. Multiple sclerosis: Continue patient on low-dose prednisone therapy, as noted complicates presentation, maintain on fall precautions, therapy initiation following operative intervention. 6. Anxiety and depression: We will continue patient home Prozac and mirtazapine regimen. 7. Hypothyroidism: Continue home synthroid regimen, TSH normal level. 8. DVT prophylaxis: SCDs, Eliquis initiation postop per orthopedic surgery. 9. CODE STATUS: DNR CCA, intubation allowed. Inpatient E&M: [id number] [facility] L[facility]
[2019-09-20] MEDS: 0.9% Saline Lock 10 ML Syringe IV ×2 (08:00→12:40)
[2019-09-20] MEDS: predniSONE 5 MG Tablet PO (08:01)
--- NOTE | 2019-09-20 10:17 | PCM.PN.ORT ---
Patient Problems: Active and Suspected Problems Intertrochanteric fracture of right femur (Acute) Iliac bone pain (Acute) Subjective: Seen and examined doing okay pain controlled denies chest pain shortness of breath fevers chills nausea vomiting dizziness or lightheadedness when standing - Physical Exam Vitals/I&O's: Vital Signs Temp Pulse Resp BP Pulse Ox 97.7 F L 93 18 102/44 L 94 09/20/19 09:59 09/20/19 09:59 09/20/19 09:59 09/20/19 09:59 09/20/19 09:59 Oxygen Flow Rate (L/min) 1 Oxygen Delivery Method Nasal Cannula Weight: 145 lb 0.004 oz Body Mass Index (BMI) 23.3 Intake and Output for Last 24 Hours 09/18/19 09/19/19 09/20/19 23:59 23:59 23:59 Intake Total 4578.33 / 4578.33 821.67 / 821.67 Output Total 1575 / 1575 650 / 650 Balance 3003.33 / 3003.33 171.67 / 171.67 General: Alert, Oriented x3, Cooperative, No apparent distress Extremities: - - Resting clean dry and intact compartment soft neurovascular intact Microbiology Past 72 Hours 09/19/19 06:45 Mucosa - Nasopharyngeal Coronavirus COVID-19 PCR - Final Laboratory Results 09/19/19 06:48: Magnesium 2.0 09/19/19 06:48: Crossmatch See Detail 09/19/19 14:38: Urine Color Yellow, Urine Clarity Sl. Cloudy, Urine pH 5.0, Ur Specific [place] 1.025, Urine Protein 15 H, Urine Glucose (UA) Normal, Urine Ketones Negative, Urine Occult Blood Negative, Urine Nitrite Negative, Urine Bilirubin Negative, Urine Urobilinogen Normal, Ur Leukocyte Esterase 100 H, Urine RBC 0 SEEN, Urine WBC 0-5 SEEN, Ur Squamous Epith Cells 0-5 SEEN, Urine Bacteria RARE, Urine Mucus 0 SEEN 09/20/19 05:22: WBC 9.3, RBC 2.12 L, Hgb 6.4 L, Hct 19.8 L, MCV 93.4, MCH 30.2, MCHC 32.3, RDW Std Deviation 43.9, RDW Coeff of Mars 13.0, Plt Count 160, MPV 9.6 09/20/19 05:22: Sodium 137, Potassium 4.4, Chloride 109 H, Carbon Dioxide 21.0, Anion Gap 7, BUN 16, Creatinine 0.82, Estim Creat Clear Calc 48.66, Est GFR (MDRD) Af Amer 86, Est GFR (MDRD) Non-Af 71, BUN/Creatinine Ratio 19.5, Glucose 160 H, Calcium 7.4 L Current Medications Acetaminophen (Tylenol) 1,000 mg PO Q8 [facility] Last Admin: 09/20/19 06:17 Dose: 1,000 mg Documented by: Apixaban (Eliquis) 2.5 mg PO BID [facility] Last Admin: 09/20/19 06:17 Dose: 2.5 mg Documented by: Dextrose (D50w Syringe) 0 gm IV X1 PRN; Protocol PRN Reason: Hypoglycemia Docusate Sodium (Colace) 100 mg PO DAILY [facility] Last Admin: 09/19/19 15:20 Dose: 100 mg Documented by: Fluoxetine HCl (Prozac) 20 mg PO DAILY [facility] Last Admin: 09/19/19 15:22 Dose: 20 mg Documented by: Gabapentin (Neurontin) 300 mg PO TID [facility] Last Admin: 09/20/19 06:17 Dose: 300 mg Documented by: Glucagon () 1 mg IM .X1 PRN PRN Reason: Hypoglycemia Hydromorphone HCl (Dilaudid Inj) 0.5 mg IV Q2H PRN PRN PRN Reason: Pain Score 6-10/10 Sodium Chloride () 250 mls @ 15 mls/hr IV .[id number] PRN PRN Reason: Saline Flush Cefazolin Sodium () 1 gm in 50 mls @ 100 mls/hr IV Q8H [facility] Last Infusion: 09/20/19 05:35 Dose: Infused Documented by: Levothyroxine Sodium (Synthroid) 25 mcg PO DAILY@0600 [facility] Last Admin: 09/20/19 06:17 Dose: 25 mcg Documented by: Mirtazapine (Remeron) 15 mg PO QHS [facility] Last Admin: 09/19/19 21:45 Dose: 15 mg Documented by: Morphine Sulfate () 2 mg IV Q3H PRN PRN PRN Reason: Pain Score 6-10/10 Last Admin: 09/19/19 09:14 Dose: 2 mg Documented by: Nutritional Formula (Lactose Free) (Ensure Enlive) 120 ml PO 4X/DAY [facility] Last Admin: 09/19/19 21:43 Dose: 120 ml Documented by: Nystatin (Mycostatin Powder) 1 applic TOPICAL BID [facility]; Protocol Last Admin: 09/19/19 21:43 Dose: 1 applicatio Documented by: Ondansetron HCl (Zofran) 4 mg IV Q6H PRN PRN PRN Reason: NAUSEA Oxycodone HCl (Oxyir) 5 - 10 mg PO Q4H PRN PRN PRN Reason: Pain Score 4-10/10 [facility] () [facility] Admin: 09/20/19 08:01 Dose: 5 mg Documented by: Senna/Docusate Sodium (Senokot-S, Leah-Colace) 2 tablet PO BID PRN PRN PRN Reason: Constipation Sodium Chloride () 10 - 40 ml IV UD PRN PRN Reason: SALINE FLUSH Last Admin: 09/20/19 08:00 Dose: 10 ml Documented by: Medical Necessity - Tobacco Use Smoking Status: Former smoker Assessment/Plan All Active Problems Intertrochanteric fracture of right femur (Acute) Iliac bone pain (Acute) Postop day #1 right hip trochanteric femoral nail PT OT weightbearing as tolerated Dressing change begin postop day #3 then may begin showering daily at that point DVT prophylaxis Bridger Sheldon 3 weeks post hospital discharge Follow-up 2 weeks postop in the office if in a [facility] facility may have pauline removed 2 weeks postop and follow-up in 4 weeks postop
[2019-09-20] MEDS: Docusate Sodium 100 MG Capsule PO (11:01)
[2019-09-20] MEDS: Nystatin Powder 15gm Bottle 1 APPLIC TOPICAL ×2 (11:01→22:17)
[2019-09-20] MEDS: FLUoxetine 20 MG Capsule PO (11:03)
--- NOTE | 2019-09-20 15:58 | NURSING ---
talked with daughter on the phone- gave daughter pt's room phone number
[2019-09-20 20:21] LABS: Hematocrit 29.1 % (37-47); Hemoglobin 9.7 g/dL (12.0-15.0)
[2019-09-20] MEDS: oxyCODONE 5 MG Tablet PO (22:16)
[2019-09-20] MEDS: Mirtazapine 15 MG Tablet PO (22:18)
[2019-09-21 04:30] VITALS: BP 157/73; PULSE 83; RESP 16; TEMP 36.6; O2SAT 95
[2019-09-21] MEDS: Cefazolin 1 GM/50 ML BAG IV (05:26)
[2019-09-21] MEDS: Acetaminophen 500 MG Tablet 1000 MG PO ×3 (05:26→21:45)
[2019-09-21] MEDS: Levothyroxine 25 MCG TABLET PO (05:27)
[2019-09-21] MEDS: Gabapentin 300 MG Capsule PO ×3 (05:27→21:46)
[2019-09-21 06:31] LABS: Hematocrit 27.1 % (37-47); Hemoglobin 9.1 g/dL (12.0-15.0); Mean Corp Hgb Conc 33.6 g/dL (32-36); Mean Corpuscular Hgb 29.9 pg (27.0-32.0); Mean Corpuscular Volume 89.1 fL (81-99); Platelet Count 161 K/mm3 (150-450); RBC Distribution Width CV 14.6 % (11.6-14.6); Red Blood Count 3.04 M/mm3 (4.2-5.4); White Blood Count 9.9 K/mm3 (4.4-11.0)
[2019-09-21 06:38] VITALS: O2SAT 92
[2019-09-21 08:28] VITALS: BP 136/72; PULSE 82; RESP 18; TEMP 36.2; O2SAT 92
[2019-09-21] MEDS: oxyCODONE 5 MG Tablet PO (08:29)
[2019-09-21] MEDS: predniSONE 5 MG Tablet PO (08:30)
[2019-09-21] MEDS: Nystatin Powder 15gm Bottle 1 APPLIC TOPICAL ×2 (08:30→21:44)
[2019-09-21] MEDS: Docusate Sodium 100 MG Capsule PO (08:30)
[2019-09-21] MEDS: APIXABAN 2.5 MG TABLET PO ×2 (08:30→21:46)
[2019-09-21] MEDS: FLUoxetine 20 MG Capsule PO (08:31)
[2019-09-21 14:30] VITALS: BP 153/89; PULSE 88; RESP 18; TEMP 36.5; O2SAT 92
--- NOTE | 2019-09-21 14:47 | NURSING ---
Update given to patient's daughter, Chevy, at this time.
--- NOTE | 2019-09-21 15:42 | PCM.PN.HOSP ---
Patient Problems: Active and Suspected Problems Intertrochanteric fracture of right femur (Acute) Iliac bone pain (Acute) Reason for Visit: right hip fracture Subjective: some pain. no new complaints. Vitals/I&O's: Vital Signs Temp Pulse Resp BP Pulse Ox 36.2 C L 82 18 136/72 H 92 09/21/19 08:28 09/21/19 08:28 09/21/19 08:28 09/21/19 08:28 09/21/19 08:28 Oxygen Flow Rate (L/min) 2 Oxygen Delivery Method Room Air Weight: 65.771 kg Body Mass Index (BMI) 23.3 Intake and Output for Last 24 Hours 09/19/19 09/20/19 09/21/19 23:59 23:59 23:59 Intake Total 4578.33 / 4578.33 2329.42 / 2569.42 990 / 990 Output Total 1575 / 1575 1025 / 1275 1450 / 1450 Balance 3003.33 / 3003.33 1304.42 / 1294.42 -460 / -460 General: Alert, No apparent distress HEENT: Atraumatic, Normocephalic Oral: Moist Mucosa, No Gingival or Mucosal Lesions/ Ulcerations Neck: No Nodes, Trachea Midline Lungs: Clear to auscultation, Normal air movement, No rhonchi, No wheeze, No rales Cardiovascular: Regular rate, Regular Rhythm, Normal S1, Normal S2 Abdomen: Bowel Sounds Present, Soft, Non Tender, Non-Distended, No Hepato-splenomegaly Extremities: No edema, No Calf Tenderness Psych/Mental Status: Normal Affect, Appropriate Microbiology Past 72 Hours 09/19/19 06:45 Mucosa - Nasopharyngeal Coronavirus COVID-19 PCR - Final Laboratory Results 09/19/19 06:48: Crossmatch See Detail 09/20/19 20:19: Hgb 9.7 L, Hct 29.1 L 09/21/19 05:33: WBC 9.9, RBC 3.04 L, Hgb 9.1 L, Hct 27.1 L, MCV 89.1, MCH 29.9, MCHC 33.6, RDW Std Deviation 47.0 H, RDW Coeff of Mars 14.6, Plt Count 161, MPV 10.0 Current Medications Acetaminophen (Tylenol) 1,000 mg PO Q8 [facility] Last Admin: 09/21/19 14:29 Dose: 1,000 mg Documented by: Apixaban (Eliquis) 2.5 mg PO BID [facility] Last Admin: 09/21/19 08:30 Dose: 2.5 mg Documented by: Dextrose (D50w Syringe) 0 gm IV X1 PRN; Protocol PRN Reason: Hypoglycemia Docusate Sodium (Colace) 100 mg PO DAILY [facility] Last Admin: 09/21/19 08:30 Dose: 100 mg Documented by: Fluoxetine HCl (Prozac) 20 mg PO DAILY [facility] Last Admin: 09/21/19 08:31 Dose: 20 mg Documented by: Gabapentin (Neurontin) 300 mg PO TID [facility] Last Admin: 09/21/19 14:29 Dose: 300 mg Documented by: Glucagon () 1 mg IM .X1 PRN PRN Reason: Hypoglycemia Hydromorphone HCl (Dilaudid Inj) 0.5 mg IV Q2H PRN PRN PRN Reason: Pain Score 6-10/10 Sodium Chloride () 250 mls @ 15 mls/hr IV .[id number] PRN PRN Reason: Saline Flush Last Infusion: 09/20/19 14:51 Dose: 0 mls/hr Documented by: Levothyroxine Sodium (Synthroid) 25 mcg PO DAILY@0600 [facility] Last Admin: 09/21/19 05:27 Dose: 25 mcg Documented by: Mirtazapine (Remeron) 15 mg PO QHS [facility] Last Admin: 09/20/19 22:18 Dose: 15 mg Documented by: Morphine Sulfate () 2 mg IV Q3H PRN PRN PRN Reason: Pain Score 6-10/10 Last Admin: 09/19/19 09:14 Dose: 2 mg Documented by: Nutritional Formula (Lactose Free) (Ensure Enlive) 120 ml PO 4X/DAY [facility] Last Admin: 09/21/19 14:29 Dose: 120 ml Documented by: Nystatin (Mycostatin Powder) 1 applic TOPICAL BID [facility]; Protocol Last Admin: 09/21/19 08:30 Dose: 1 applicatio Documented by: Ondansetron HCl (Zofran) 4 mg IV Q6H PRN PRN PRN Reason: NAUSEA Oxycodone HCl (Oxyir) 5 - 10 mg PO Q4H PRN PRN PRN Reason: Pain Score 4-10/10 Last Admin: 09/21/19 08:29 Dose: 10 mg Documented by: Prednisone () 5 mg PO DAILYCM [facility] Last Admin: 09/21/19 08:30 Dose: 5 mg Documented by: Senna/Docusate Sodium (Senokot-S, Leah-Colace) 2 tablet PO BID PRN PRN PRN Reason: Constipation Sodium Chloride () 10 - 40 ml IV UD PRN PRN Reason: SALINE FLUSH Last Admin: 09/20/19 12:40 Dose: 10 ml Documented by: Medical Necessity - Tobacco Use Smoking Status: Former smoker Assessment/Plan All Active Problems Intertrochanteric fracture of right femur (Acute) Iliac bone pain (Acute) 1. right hip fracture: s/p nailing on 09/[address] Hill as outpt 2. acute blood loss anemia s/p 2 units PRBCs stable monitor 3. VTE prophylaxis: apixaban Inpatient E&M: 79877 Subs Hosp L2
[2019-09-21 20:18] VITALS: BP 146/74; PULSE 100; RESP 18; TEMP 36.8; O2SAT 92
[2019-09-21] MEDS: Mirtazapine 15 MG Tablet PO (21:47)
[2019-09-22] MEDS: oxyCODONE 5 MG Tablet PO ×2 (00:59→12:47)
[2019-09-22 02:23] VITALS: BP 160/64; PULSE 84; RESP 18; TEMP 36.6; O2SAT 92
[2019-09-22] MEDS: Gabapentin 300 MG Capsule PO ×2 (06:13→14:03)
[2019-09-22] MEDS: Acetaminophen 500 MG Tablet 1000 MG PO ×2 (06:13→14:03)
[2019-09-22] MEDS: Levothyroxine 25 MCG TABLET PO (06:13)
[2019-09-22 06:24] LABS: Hematocrit 30.3 % (37-47); Hemoglobin 10.1 g/dL (12.0-15.0); Mean Corp Hgb Conc 33.3 g/dL (32-36); Mean Corpuscular Hgb 30.1 pg (27.0-32.0); Mean Corpuscular Volume 90.4 fL (81-99); Platelet Count 201 K/mm3 (150-450); RBC Distribution Width CV 14.6 % (11.6-14.6); RBC Distribution Width SD 47.4 fl (35.1-43.9); Red Blood Count 3.35 M/mm3 (4.2-5.4); White Blood Count 8.1 K/mm3 (4.4-11.0)
[2019-09-22] MEDS: Docusate Sodium 100 MG Capsule PO (08:49)
[2019-09-22] MEDS: FLUoxetine 20 MG Capsule PO (08:49)
[2019-09-22] MEDS: Nystatin Powder 15gm Bottle 1 APPLIC TOPICAL (08:49)
[2019-09-22] MEDS: APIXABAN 2.5 MG TABLET PO (08:49)
[2019-09-22 08:50] VITALS: BP 182/68; PULSE 93; RESP 18; TEMP 36.7; O2SAT 93
[2019-09-22] MEDS: predniSONE 5 MG Tablet PO (08:50)
--- NOTE | 2019-09-22 09:30 | PN_ITS ---
Patient Problems: Active and Suspected Problems Intertrochanteric fracture of right femur (Acute) Iliac bone pain (Acute) Reason for Visit: hip fracture Subjective: Constipated for the past several days. Vitals/I&O's: Vital Signs Temp Pulse Resp BP Pulse Ox 36.6 C 84 18 160/64 H 92 09/22/19 02:23 09/22/19 02:23 09/22/19 02:23 09/22/19 02:23 09/22/19 02:23 Oxygen Flow Rate (L/min) 2 Oxygen Delivery Method Room Air Weight: 65.771 kg Body Mass Index (BMI) 23.3 Intake and Output for Last 24 Hours 09/20/19 09/21/19 09/22/19 23:59 23:59 23:59 Intake Total 2329.42 / 2569.42 990 / 990 400 / 400 Output Total 1025 / 1275 1650 / 1650 1750 / 1750 Balance 1304.42 / 1294.42 -660 / -660 -1350 / -1350 General: Alert, No apparent distress HEENT: Atraumatic, Normocephalic Oral: Moist Mucosa, No Gingival or Mucosal Lesions/ Ulcerations Neck: No Nodes, Trachea Midline Lungs: Clear to auscultation, Normal air movement, No rhonchi, No wheeze, No rales Cardiovascular: Regular rate, Regular Rhythm, Normal S1, Normal S2, No murmurs Abdomen: Bowel Sounds Present, Soft, Non Tender, Non-Distended, No Hepato- splenomegaly Extremities: No edema, No Calf Tenderness Psych/Mental Status: Normal Affect, Appropriate Microbiology Past 72 Hours 09/19/19 06:45 Mucosa - Nasopharyngeal Coronavirus COVID-19 PCR - Final Laboratory Results 09/22/19 05:46: WBC 8.1, RBC 3.35 L, Hgb 10.1 L, Hct 30.3 L, MCV 90.4, MCH 30.1, MCHC 33.3, RDW Std Deviation 47.4 H, RDW Coeff of Mars 14.6, Plt Count 201, MPV 10.0 Current Medications Acetaminophen (Tylenol) 1,000 mg PO Q8 [facility] Last Admin: 09/22/19 06:13 Dose: 1,000 mg Documented by: Apixaban (Eliquis) 2.5 mg PO BID [facility] Last Admin: 09/22/19 08:49 Dose: 2.5 mg Documented by: Dextrose (D50w Syringe) 0 gm IV X1 PRN; Protocol PRN Reason: Hypoglycemia Docusate Sodium (Colace) 100 mg PO DAILY [facility] Last Admin: 09/22/19 08:49 Dose: 100 mg Documented by: Fluoxetine HCl (Prozac) 20 mg PO DAILY [facility] Last Admin: 09/22/19 08:49 Dose: 20 mg Documented by: Gabapentin (Neurontin) 300 mg PO TID [facility] Last Admin: 09/22/19 06:13 Dose: 300 mg Documented by: Glucagon () 1 mg IM .X1 PRN PRN Reason: Hypoglycemia Hydromorphone HCl (Dilaudid Inj) 0.5 mg IV Q2H PRN PRN PRN Reason: Pain Score 6-10/10 Sodium Chloride () 250 mls @ 15 mls/hr IV .[id number] PRN PRN Reason: Saline Flush Last Infusion: 09/20/19 14:51 Dose: 0 mls/hr Documented by: Levothyroxine Sodium (Synthroid) 25 mcg PO DAILY@0600 [facility] Last Admin: 09/22/19 06:13 Dose: 25 mcg Documented by: Mirtazapine (Remeron) 15 mg PO QHS [facility] Last Admin: 09/21/19 21:47 Dose: 15 mg Documented by: Morphine Sulfate () 2 mg IV Q3H PRN PRN PRN Reason: Pain Score 6-10/10 Last Admin: 09/19/19 09:14 Dose: 2 mg Documented by: Nutritional Formula (Lactose Free) (Ensure Enlive) 120 ml PO 4X/DAY [facility] Last Admin: 09/22/19 08:52 Dose: 120 ml Documented by: Nystatin (Mycostatin Powder) 1 applic TOPICAL BID [facility]; Protocol Last Admin: 09/22/19 08:49 Dose: 1 applicatio Documented by: Ondansetron HCl (Zofran) 4 mg IV Q6H PRN PRN PRN Reason: NAUSEA Oxycodone HCl (Oxyir) 5 - 10 mg PO Q4H PRN PRN PRN Reason: Pain Score 4-10/10 Last Admin: 09/22/19 00:59 Dose: 10 mg Documented by: Prednisone () 5 mg PO DAILYCM [facility] Last Admin: 09/22/19 08:50 Dose: 5 mg Documented by: Senna/Docusate Sodium (Senokot-S, Leah-Colace) 2 tablet PO BID PRN PRN PRN Reason: Constipation Sodium Chloride () 10 - 40 ml IV UD PRN PRN Reason: SALINE FLUSH Last Admin: 09/20/19 12:40 Dose: 10 ml Documented by: Medical Necessity - Tobacco Use Smoking Status: Former smoker Assessment/Plan All Active Problems Intertrochanteric fracture of right femur (Acute) Iliac bone pain (Acute) 1. right hip fracture: * s/p nailing on 09/18 * follow up with Dr. Hill as outpt 2. acute blood loss anemia * s/p 2 units PRBCs * stable * monitor 3. constipation: dulcolax 4. VTE prophylaxis: apixaban Inpatient E&M: 18392 Subs Hosp L2
--- NOTE | 2019-09-22 10:56 | PCM.TXEXTCAR ---
- Diet 09/20/19 04:38 Diet: Regular Diet Food consistency:: Mechanical Soft/Ground Liquid Consistency:: Regular/Thin Is pt able to select menu?: Yes Diet Comments: Except meds with sip of water; supervision with meals; cue to throat clear - Routine Orders/Code Status Code Status: DNRCC-A - Wound(s) right hip Wound Type: Surgical Incision - Therapies Weight Bearing: Weight bearing as tolerated Extremity Affected:: Right Lower Physical Therapy: Eval and Treat Occupational Therapy: Eval and Treat - Allergies/Procedures Done in Hospital Allergies/Adverse Reactions: Allergies No Known Allergies Allergy (Verified 07/02/18 00:04) Procedures: - - Cephalo-medullary fixation right hip - Type of Care/Length of Stay Estimated LOS: Convalescent Care Less Than 30 days Type of Care Needed: Skilled Rehab Potential: Good Prognosis: Good - Additional Orders/Day of Discharge Day of Discharge: 09/22/19 - Dietary and Speech Recommendations Dietitian Recommendations/Changes: Continue regular diet- consistency per [employer]. Continue ensure enlive w/ medpass. - Follow Up Care Primary Care Physician: Dulce Woodson MD [Primary Care Provider] - Within 2 Weeks Please Follow Up With: Calin Natarajan DO When: 2 weeks
--- NOTE | 2019-09-22 10:58 | DS.PCM_ITS ---
Discharge Date and Diagnosis - Problem List Patient Problems: Active and Suspected Problems Intertrochanteric fracture of right femur (Acute) Iliac bone pain (Acute) Date of Admission: 09/18/19 Date of Discharge: 09/22/19 - Primary Discharge Diagnosis Acute Problems: Active Problems Intertrochanteric fracture of right femur (Acute) Iliac bone pain (Acute) - Secondary Discharge Diagnosis Chronic Problems: Chronic Problems Sacroiliac dysfunction (Chronic) Lumbar degenerative disc disease (Chronic) Coccydynia (Chronic) Hospital Course and Treatment Imaging Results: Clinical Impression(s) from Imaging Studies Brain CT 09/18/19 21:44 IMPRESSION: Trace chronic sinusitis. Otherwise negative unenhanced CT scan of the brain. Electronically Signed: Flaquita Malone MD at 22:50 EDT Tel , Service support , Hip/Pelvis X-Ray 09/18/19 21:46 IMPRESSION: 1. Acute intertrochanteric fracture of the right femoral neck with marked varus angulation. 2. Right medial iliac bone fracture. Consider CT of the bony pelvis for further evaluation. Electronically Signed: Flaquita Malone MD at 23:38 EDT Tel , Service support , Knee X-Ray 09/18/19 21:47 IMPRESSION: Trace effusion of the knee. Electronically Signed: Angel Amaya DO at 10:00 EDT Tel [phone], Service support , Chest X-Ray 09/18/19 22:45 IMPRESSION: 1. Mild hazy opacities in the lungs bilaterally concerning for pneumonia. Electronically Signed: Flaquita Malone MD at 23:34 EDT Tel , Service support , Abdomen/Pelvis CT 09/18/19 23:42 IMPRESSION: 1. Bilateral basilar airspace disease and atelectasis. 2. Comminuted displaced right-sided intratrochanteric femoral fracture. 3. No CT evidence of acute intra-abdominal disease. 4. Cholelithiasis. 5. Compression fracture of L3. 6. Sigmoid colon diverticulosis without evidence for diverticulitis. Electronically Signed: Denise Guzman MD at 0:30 EDT , Service support , Pelvis CT 09/19/19 07:48 IMPRESSION: Comminuted displaced intertrochanteric fracture of the right femur. Electronically Signed: Denise Guzman MD at 9:22 EDT , Service support , Hip X-Ray 09/19/19 09:00 IMPRESSION: Fluoroscopic guidance for right IT fracture fixation. Electronically Signed: Yazan Amaya MD ([place]) at 13:35 EDT , Service support , [facility] Operations: None Procedures: None Summary of Care Provided: The patient is a 84 year old F presents with right hip pain. Patient was at her group home where she had fallen and sustained an acute intertrochanteric fracture of the right femoral neck. On the , patient underwent cephalo- medullary fixation of the right hip with short nail 125degree millimeter in diameter 95 mm helical blade [address] Montoya. Patient tolerated the procedure well. Patient's course was uncomplicated. Patient will be going to transitional care unit in stable condition. [] Patient Problems: Active and Suspected Problems Intertrochanteric fracture of right femur (Acute) Iliac bone pain (Acute) - Physical Exam Vitals/I&O's: Vital Signs Temp Pulse Resp BP Pulse Ox 36.7 C 93 18 182/68 H 93 09/22/19 08:50 09/22/19 08:50 09/22/19 08:50 09/22/19 08:50 09/22/19 08:50 Oxygen Flow Rate (L/min) 2 Oxygen Delivery Method Room Air Weight: 65.771 kg Body Mass Index (BMI) 23.3 Intake and Output for Last 24 Hours 09/20/19 09/21/19 09/22/19 23:59 23:59 23:59 Intake Total 2329.42 / 2569.42 990 / 990 400 / 400 Output Total 1025 / 1275 1650 / 1650 1750 / 1750 Balance 1304.42 / 1294.42 -660 / -660 -1350 / -1350 General: Alert, No apparent distress HEENT: Atraumatic, Normocephalic Oral: Moist Mucosa, No Gingival or Mucosal Lesions/ Ulcerations Neck: No Nodes, Thyroid Normal Size and Texture Lungs: Clear to auscultation, Normal air movement, No rhonchi, No wheeze Cardiovascular: Regular rate, Regular Rhythm, Normal S1, Normal S2 Abdomen: Bowel Sounds Present, Soft, Non Tender, Non-Distended, No Hepato- splenomegaly Extremities: No edema, No Calf Tenderness Psych/Mental Status: Normal Affect, Appropriate Microbiology Past 72 Hours 09/19/19 06:45 Mucosa - Nasopharyngeal Coronavirus COVID-19 PCR - Final Laboratory Results 09/22/19 05:46: WBC 8.1, RBC 3.35 L, Hgb 10.1 L, Hct 30.3 L, MCV 90.4, MCH 30.1, MCHC 33.3, RDW Std Deviation 47.4 H, RDW Coeff of Mars 14.6, Plt Count 201, MPV 10.0 Current Medications Acetaminophen (Tylenol) 1,000 mg PO Q8 [facility] Last Admin: 09/22/19 06:13 Dose: 1,000 mg Documented by: Apixaban (Eliquis) 2.5 mg PO BID [facility] Last Admin: 09/22/19 08:49 Dose: 2.5 mg Documented by: Bisacodyl (Dulcolax) 5 mg PO DAILY [facility] Dextrose (D50w Syringe) 0 gm IV X1 PRN; Protocol PRN Reason: Hypoglycemia Docusate Sodium (Colace) 100 mg PO DAILY [facility] Last Admin: 09/22/19 08:49 Dose: 100 mg Documented by: Fluoxetine HCl (Prozac) 20 mg PO DAILY [facility] Last Admin: 09/22/19 08:49 Dose: 20 mg Documented by: Gabapentin (Neurontin) 300 mg PO TID [facility] Last Admin: 09/22/19 06:13 Dose: 300 mg Documented by: Glucagon () 1 mg IM .X1 PRN PRN Reason: Hypoglycemia Hydromorphone HCl (Dilaudid Inj) 0.5 mg IV Q2H PRN PRN PRN Reason: Pain Score 6-10/10 Sodium Chloride () 250 mls @ 15 mls/hr IV .[id number] PRN PRN Reason: Saline Flush Last Infusion: 09/20/19 14:51 Dose: 0 mls/hr Documented by: Levothyroxine Sodium (Synthroid) 25 mcg PO DAILY@0600 [facility] Last Admin: 09/22/19 06:13 Dose: 25 mcg Documented by: Mirtazapine (Remeron) 15 mg PO QHS [facility] Last Admin: 09/21/19 21:47 Dose: 15 mg Documented by: Morphine Sulfate () 2 mg IV Q3H PRN PRN PRN Reason: Pain Score 6-10/10 Last Admin: 09/19/19 09:14 Dose: 2 mg Documented by: Nutritional Formula (Lactose Free) (Ensure Enlive) 120 ml PO 4X/DAY [facility] Last Admin: 09/22/19 08:52 Dose: 120 ml Documented by: Nystatin (Mycostatin Powder) 1 applic TOPICAL BID [facility]; Protocol Last Admin: 09/22/19 08:49 Dose: 1 applicatio Documented by: Ondansetron HCl (Zofran) 4 mg IV Q6H PRN PRN PRN Reason: NAUSEA Oxycodone HCl (Oxyir) 5 - 10 mg PO Q4H PRN PRN PRN Reason: Pain Score 4-10/10 Last Admin: 09/22/19 00:59 Dose: 10 mg Documented [facility]: [facility] Admin: 09/22/19 08:50 Dose: 5 mg Documented by: Senna/Docusate Sodium (Senokot-S, Leah-Colace) 2 tablet PO BID PRN PRN PRN Reason: Constipation Sodium Chloride () 10 - 40 ml IV UD PRN PRN Reason: SALINE FLUSH Last Admin: 09/20/19 12:40 Dose: 10 ml Documented by: Sodium Chloride () 10 - 40 ml IV UD PRN PRN Reason: SALINE FLUSH Discharge Diet: No Restrictions Discharge Activity: Return to Normal Activity Home Medications: Medications to take at Discharge Fluoxetine [Prozac] 20 mg PO DAILY 01/31/18 Levothyroxine [Synthroid] 25 mcg PO DAILY 01/31/18 Docusate Sodium 100 mg PO DAILY 07/02/18 Gabapentin [Neurontin] 300 mg PO TID 07/02/18 Mirtazapine 15 mg PO QHS 07/02/18 Prednisone 5 mg PO DAILY 07/02/18 Acetaminophen [Tylenol] 1,000 mg PO Q8 tablet 09/22/19 Apixaban [Eliquis] 2.5 mg PO BID tablet 09/22/19 Oxycodone [Oxyir] 5 mg PO Q6H PRN 3 Days #12 tab 09/22/19 Following Prescrptions Were Given to Patient: Oxycodone [Oxyir] 5 mg PO Q6H PRN 3 Days #12 tab PRN Reason: Pain Score 4-10/10 Prescription Printed Primary Care Physician: Dulce Woodson MD [Primary Care Provider] - Within 2 Weeks Please Follow Up With: Calin Natarajan DO When: 2 weeks [facility]position: [facility] facility Minutes spent on discharge:: 32 Patient Condition:: Good Medical Necessity - Tobacco Use Smoking Status: Former smoker Meaningful Use Info Meaningful Use Diagnoses (Choose all that apply): None applicable Inpatient E&M: 74761 Disch Hosp
[2019-09-22 14:00] VITALS: BP 120/56; PULSE 87; RESP 16; TEMP 36.8; O2SAT 94
--- NOTE | 2019-09-22 14:10 | CASEMGMT ---
Social Work Note SW received message from Kathya in TCU stating she is able to accept pt today. SW in to speak with pt. PERI introduced self and role at [facility]. Pt is alert and orientated x3. PERI updated pt that SNF is being recommended and [facility] TCU is able to accept pt. Pt states understanding. PERI informed pt that this worker will call her daughter Chevy to update her. Pt states understanding. PERI placed a call to pt's daughter Chevy and updated her that TCU is able to accept pt today and pt will discharge today. Chevy states understanding. Plan: TCU Today Bess Justice LAPELER, VEST BUSHELER
--- NOTE | 2019-09-22 14:27 | NURSING ---
report called to Rufina on TCU for discharge.
--- NOTE | 2019-09-22 14:29 | NURSING ---
attempted to update patients daughterJosette prior to discharge to TCU.
--- NOTE | 2019-09-23 13:08 | CASEMGMT ---
Social Work Note SW placed a call to [facility] and updated Tig[facility] that pt discharged to TCU yesterday. Bess Justice LEASING AGENT, CEMENT SIDE LASTER
== END 2019-09-22 14:44 | DRG 956 ==
LOC: ED 22:23 → MS3 09-19 02:12
PROVIDERS: Anesthesiology; Family Medicine; Orthopaedic Surgery; Admitting Provider Hospitalist; Emergency Provider Emergency Medicine; PCP Family Medicine; Referring Provider Hospitalist
PROC: 0QS606Z Reposition Right Upper Femur with Intramedullary Internal Fixation Device, Open Approach (ICD-10-PCS; principal; 2019-09-19 09:30)
DX: S72.141A Displaced intertrochanteric fracture of right femur, initial encounter for closed fracture (principal); S32.301A Unspecified fracture of right ilium, initial encounter for closed fracture; F03.91 Unspecified dementia, unspecified severity, with behavioral disturbance; D62 Acute posthemorrhagic anemia; Z11.59 Encounter for screening for other viral diseases; S80.01XA Contusion of right knee, initial encounter; W19.XXXA Unspecified fall, initial encounter; Y93.01 Activity, walking, marching and hiking; Y92.009 Unspecified place in unspecified non-institutional (private) residence as the place of occurrence of the external cause; M51.36 Other intervertebral disc degeneration, lumbar region; F32.9 Major depressive disorder, single episode, unspecified; E03.9 Hypothyroidism, unspecified; Z87.891 Personal history of nicotine dependence; Z79.899 Other long term (current) drug therapy; G35 Multiple sclerosis; Z66 Do not resuscitate; F41.9 Anxiety disorder, unspecified; Z79.01 Long term (current) use of anticoagulants; R31.9 Hematuria, unspecified
CPT/HCPCS: 36415; 51702; 70450; 71045; 72192; 73502; 73560; 74176; 76000; 80048; 81001; 81002; 83735; 84443; 84484; 85014; 85018; 85025; 85027; 85610; 86850; 86900; 86901; 86920; 87086; 87088; 87635; 92526; 92610; 93005; 97110; 97116; 97162; 97165; 97530; 97535; 97803; 99251; 99285; C1713; C1776; G2023; J7030; J7040; J7050; J7120; P9016; A4216; G0463; J2405; U0004

== ENCOUNTER 2019-09-22 15:04 | Inpatient (IN) | payer MEDICARE, SELFPAY ==
[2019-09-19 08:11] VITALS: BMI 23.3
[2019-09-22 15:11] VITALS: BP 136/70; PULSE 90; RESP 18; TEMP 36.9; O2SAT 93; BMI 26.5
[2019-09-22 16:44] VITALS: PULSE 90; RESP 18; O2SAT 93
[2019-09-22] MEDS: Gabapentin 300 MG Capsule PO (17:31)
[2019-09-22] MEDS: APIXABAN 2.5 MG TABLET PO (17:31)
[2019-09-22] MEDS: Menthol/Lanolin/Calamine/Znox 113 GM Tube 1 APPLIC TOPICAL (20:12)
[2019-09-22] MEDS: Nystatin Powder 15gm Bottle 1 APPLIC TOPICAL (20:13)
[2019-09-22] MEDS: Acetaminophen 500 MG Tablet 1000 MG PO (20:14)
[2019-09-22] MEDS: Mirtazapine 15 MG Tablet PO (20:14)
--- NOTE | 2019-09-22 21:45 | PCM.HP.STD ---
Problem List (1) Debility Status: Acute (2) Fall Status: Acute (3) Closed right hip fracture Status: Acute (4) Acute blood loss anemia Status: Acute (5) Hypothyroidism Status: Chronic (6) Depression Status: Chronic (7) Lumbar disc disease Status: Chronic (8) Neuropathic pain Status: Chronic (9) Osteoarthritis Status: Chronic (10) Appetite loss Status: Chronic History of Present Illness Date of Admission: 09/22/19 Chief Complaint: Here for rehabilitation, strengthening, prior to discharge to [facility]. 09/18/2019 The patient is a 84 year old Female with below past medical history presented to [facility] Emergency Department with fall, right hip pain, right knee pain. 09/18/2019 CT head trace chronic sinusitis, otherwise normal. 09/18/2019 EKG normal sinus rhythm, normal EKG. 09/18/2019 X-ray pelvis, right hip showed right hip fracture, right medial iliac bone fracture, consider CT. 09/18/2019 Chest X-ray concerning for pneumonia. 09/18/2019 CT abdomen/pelvis showed bilateral basilar airspace disease and atelectasis, right hip fracture, cholelithiasis, compression fracture of L3, Sigmoid diverticulosis. Fall at home. CBCD okay, BMP okay, Troponin negative. Morphine, Zofran given, Neff placed, Dr. Natarajan consulted. 09/18/2019 Admit to Hospital. Baseline ambulation with walker. Prepare for surgery, gentle IV fluids. NSQIP below average risk for planned surgery. Morphine IV as needed for pain. 09/19/2019 Dr. Natarajan performed right hip cephalo-medullary nail fixation. Transfused 2 units PRBC for acute blood loss anemia. Eliquis for DVT prophylaxis thru 10/11/2019. 09/22/2019 Admit to TCU with debility, here for rehabilitation, strengthening, prior to discharge to [facility]. Past Medical History Past Medical History (Chronic Problems): Chronic Problems Hypothyroidism (Chronic) Depression (Chronic) Lumbar disc disease (Chronic) Neuropathic pain (Chronic) Osteoarthritis (Chronic) Appetite loss (Chronic) Sacroiliac dysfunction (Chronic) Lumbar degenerative disc disease (Chronic) Coccydynia (Chronic) Allergies No Known Allergies Allergy (Verified 07/02/18 00:04) Home Medications: Ambulatory Orders Medication Instructions Recorded Fluoxetine [Prozac] 20 mg PO DAILY 10/05/18 Levothyroxine [Synthroid] 25 mcg PO DAILY 01/31/18 Docusate Sodium 100 mg PO DAILY 07/02/18 Gabapentin [Neurontin] 300 mg PO TID 07/02/18 Mirtazapine 15 mg PO QHS 07/02/18 Prednisone 5 mg PO DAILY 07/02/18 Acetaminophen [Tylenol] 1,000 mg PO Q8 09/22/19 Apixaban [Eliquis] 2.5 mg PO BID 09/22/19 Oxycodone [Oxyir] 5 mg PO Q6H PRN 3 Days #12 tab 09/22/19 Surgical History: hysterectomy, - - Right hip cephalo medullary nail fixation. Psychiatric History: Depression [employer] History: No pertinent [employer] history Lives: [facility]. Smoking Status: Former smoker Tobacco Use: Cigarettes Alcohol: None Drugs: None - *Family History Maternal History Items: - - She reports that her mother had ulcers of the leg. Paternal History Items: Heart Disease Review of Systems Constitutional: Denies: Chills, Fever, Weight Change HEENT: Denies: Head Aches, Sinus Congestion, Sinus Drainage Cardiovascular: Denies: Chest Pain, Palpitations Respiratory: Denies: Cough, Shortness of breath at rest, Sputum production Gastrointestinal: Denies: Abdominal Pain, Nausea, Vomiting Genitourinary: Denies: Dysuria Musculoskeletal: Denies: Joint Pain, Joint Tenderness Skin: Denies: Rash, Wounds Neurological: Denies: Numbness, Tingling, Focal weakness Psychiatric: Denies: Anxiety, Depression, Homicidal Ideations, Suicidal Ideations Hematologic/ Lymphatic: Denies: Easy Bruising, Easy Bleeding VTE Information - Inpt Only VTE Present on Admission: No VTE Mechan Device Prophylaxis: Knee High THUY Hose VTE Pharm Prophylaxis ordered?: Yes Patient Problems: Active and Suspected Problems Debility (Acute) Fall (Acute) Closed right hip fracture (Acute) Acute blood loss anemia (Acute) - Physical Exam Vitals/I&O's: Vital Signs Temp Pulse Resp BP Pulse Ox 98.5 F 90 18 136/70 H 93 09/22/19 15:11 09/22/19 16:44 09/22/19 16:44 09/22/19 15:11 09/22/19 16:44 Oxygen Delivery Method Room Air Weight: 74.616 kg Body Mass Index (BMI) 26.5 General: Alert, Oriented x3, Cooperative HEENT: Atraumatic, PERRLA, EOMI, Normocephalic Neck: Supple, No JVD, Negative Carotid Bruits Lungs: Clear to auscultation, Normal air movement Cardiovascular: Regular rate, No murmurs Abdomen: Bowel Sounds Present, Soft, Non Tender Extremities: No edema, Capillary Refill Less than 3 Seconds Skin: No rashes, No breakdown Musculoskeletal: No Tenderness to Palpation of Joints or Extremities Neurological: Cranial nerves II-XII grossly intact Psych/Mental Status: Normal Affect, Appropriate Current Medications Acetaminophen (Tylenol) 1,000 mg PO Q8 [facility] Last Admin: 09/22/19 20:14 Dose: 1,000 mg Documented by: Apixaban (Eliquis) 2.5 mg PO BID [facility] Stop: 10/11/19 22:00 Last Admin: 09/22/19 17:31 Dose: 2.5 mg Documented by: Calamine/Phenol (Calmoseptine Ointment) 1 applic TOPICAL BID [facility]; Protocol Last Admin: 09/22/19 20:12 Dose: 1 applicatio Documented by: Docusate Sodium (Colace) 100 mg PO DAILY [facility] Fluoxetine HCl (Prozac) 20 mg PO DAILY [facility] Gabapentin (Neurontin) 300 mg PO TIDCM [facility] Last Admin: 09/22/19 17:31 Dose: 300 mg Documented by: Levothyroxine Sodium (Synthroid) 25 mcg PO DAILY [facility] Mirtazapine (Remeron) 15 mg PO QHS [facility] Last Admin: 09/22/19 20:14 Dose: 15 mg Documented by: Nystatin (Mycostatin Powder) 1 applic TOPICAL BID [facility]; Protocol Last Admin: 09/22/19 20:13 Dose: 1 applicatio Documented by: Oxycodone HCl (Oxyir) 5 mg PO Q6H PRN PRN Reason: Pain Score 4-10/10 Prednisone () 5 mg PO DAILYCOX MONETT Tuberculin PPD (Tubersol, Aplisol, Ppd) 5 tu ID X1 ONE Stop: 09/23/19 10:01 Tuberculin PPD (Tubersol, Aplisol, Ppd) 5 tu ID X1 ONE Stop: 09/30/19 10:01 Assessment/Plan All Active Problems Intertrochanteric fracture of right femur (Acute) Iliac bone pain (Acute) Debility (Acute) Fall (Acute) Closed right hip fracture (Acute) Acute blood loss anemia (Acute) 84 year old female with below past medical history hospitalized for right hip fracture, underwent right hip cephalo-medullary nail fixation 09/19/[address] Natarajan, postoperative course complicated by anemia requiring 2 units PRBC transfusion, admitted to TCU with debility, here for rehabilitation, strengthening, prior to discharge to [facility]. Debility - PT/OT. Pain - Tylenol 1000MG Q8H, Oxycodone 5MG Q4H PRN pain (4-10). Bowel - Miralax 17GM daily, Senna/colace 2 tablets BID, Dulcolax 10MG daily PRN. Adult immunization - Administer Prevnar 13, Pneumovax 23, Fluzone as appropriate. DVT prophylaxis - Eliquis 2.5MG BID thru 10/11/2019. Depression - Fluoxetine 20MG daily, stable chronic superintendent container terminal use, GDR not recommended. Hypothyroidism - Levothyroxine 25MCG daily.. Neuropathic pain - Gabapentin 300MG TIDCM. Skin irritation - Calmoseptine BID. Insomnia/appetite loss - Mirtazapine 15MG QHS, stable chronic superintendent container terminal use, GDR not recommended. Tinea Corporis - Nystatin powder BID. Osteoarthritis - Prednisone 5MG daily.
[2019-09-23 05:21] LABS: Absolute Lymphocyte Count 1.79 X10^3/uL (0.83-4.51); Absolute Neutrophil Count 5.1 X10^3/uL (2.0-7.7); Basophil# 0.04 X10^3/uL; Basophil% 0.5 % (0-1); Eosinophil# 0.18 X10^3/uL; Eosinophils% 2.3 % (0-5); Hematocrit 29.6 % (37-47); Hemoglobin 9.6 g/dL (12.0-15.0); Lymphocyte # 1.79 X10^3/ul (4.0); Lymphocyte % 22.5 % (19-41); Mean Corp Hgb Conc 32.4 g/dL (32-36); Mean Corpuscular Hgb 29.5 pg (27.0-32.0); Mean Corpuscular Volume 91.1 fL (81-99); Mean Platelet Vol. 9.2 fl (6.2-12.0); Monocyte# 0.71 X10^3/uL; Monocyte% 8.9 % (0-10); NRBC Flagged by Analyzer 0 % (0-5); Neutrophil # 5.14 X10^3/uL (2.7-7.7); Neutrophil % 64.4 % (47-70); Platelet Count 219 K/mm3 (150-450); RBC Distribution Width CV 14.5 % (11.6-14.6); RBC Distribution Width SD 47.2 fl (35.1-43.9); Red Blood Count 3.25 M/mm3 (4.2-5.4)
[2019-09-23 05:44] LABS: Anion Gap 6 (5-15); BUN 22 mg/dL (7-18); BUN/Creat Ratio 29.7 RATIO (10-20); Calcium,Total 8.2 mg/dL (8.5-10.1); Chloride 105 mmol/L (98-107); Creatinine, Serum 0.74 mg/dL (0.55-1.02); EST Glomerular Filtration Rate 80 mL/min (>60); Est Glom Filt Rate - Afr Amer 96 mL/min (>60); Glucose 94 mg/dL (74-106); Potassium 3.9 mmol/L (3.5-5.1); Sodium Level 140 mmol/L (136-145)
[2019-09-23 06:24] VITALS: BP 154/73; PULSE 87; RESP 16; TEMP 37.1; O2SAT 95
[2019-09-23] MEDS: Acetaminophen 500 MG Tablet 1000 MG PO ×3 (06:25→20:52)
[2019-09-23] MEDS: Levothyroxine 25 MCG TABLET PO (06:26)
[2019-09-23] MEDS: FLUoxetine 20 MG Capsule PO (06:26)
[2019-09-23] MEDS: APIXABAN 2.5 MG TABLET PO ×2 (06:26→17:04)
[2019-09-23] MEDS: Senna/Docusate Sodium 1 Tablet 2 TABLET PO ×2 (06:27→17:04)
[2019-09-23] MEDS: Nystatin Powder 15gm Bottle 1 APPLIC TOPICAL ×2 (06:27→18:28)
[2019-09-23] MEDS: Menthol/Lanolin/Calamine/Znox 113 GM Tube 1 APPLIC TOPICAL ×2 (06:28→18:28)
[2019-09-23] MEDS: predniSONE 5 MG Tablet PO (08:36)
[2019-09-23] MEDS: Gabapentin 300 MG Capsule PO ×3 (08:36→17:04)
[2019-09-23] MEDS: Tuberculin,Purif.prot.deriv. 50 TU/ML Vial 5 ML ID (10:00)
[2019-09-23 10:05] VITALS: PULSE 91; RESP 18; O2SAT 93
--- NOTE | 2019-09-23 11:05 | PCM.PN.RX ---
<Tram Gray M - Last Filed: 09/23/19 11:05> Progress Note - Pharmacy Subjective: TCU ADMISSION Objective: Allergies No Known Allergies Allergy (Verified 07/02/18 00:04) Current Medications Generic Name Dose Route Start Last Admin Trade Name Freq PRN Reason Stop Dose Admin Acetaminophen 1,000 mg 09/22/19 22:00 09/23/19 06:25 Tylenol PO 1,000 mg Q8 ALHAJI Administration Apixaban 2.5 mg 09/22/19 18:00 09/23/19 06:26 Eliquis PO 10/11/19 22:00 2.5 mg BID ALHAJI Administration Bisacodyl 10 mg 09/22/19 22:00 Dulcolax PO DAILY PRN PRN Constipation Calamine/Phenol 1 applic 09/22/19 18:00 09/23/19 06:28 Calmoseptine Ointment TOPICAL 1 applicatio BID ALHAJI Administration Protocol Fluoxetine HCl 20 mg 09/23/19 06:00 09/23/19 06:26 Prozac PO 20 mg DAILY ALHAJI Administration Gabapentin 300 mg 09/22/19 17:45 09/23/19 08:36 Neurontin PO 300 mg TIDCM ALHAJI Administration Levothyroxine Sodium 25 mcg 09/23/19 06:00 09/23/19 06:26 Synthroid PO 25 mcg DAILY ALHAJI Administration Mirtazapine 15 mg 09/22/19 22:00 09/22/19 20:14 Remeron PO 15 mg QHS ALHAJI Administration Nystatin 1 applic 09/22/19 18:00 09/23/19 06:27 Mycostatin Powder TOPICAL 1 applicatio BID ALHAJI Administration Protocol Oxycodone HCl 5 mg 09/22/19 22:01 Oxyir PO Q4H PRN PRN Pain Score 4-10/10 Polyethylene Glycol 17 gm 09/23/19 06:00 09/23/19 06:28 Miralax PO Not Given DAILY ALHAJI Prednisone 5 mg 09/23/19 08:00 09/23/19 08:36 PO 5 mg DAILYCM ALHAJI Administration Senna/Docusate Sodium 2 tablet 09/23/19 06:00 09/23/19 06:27 Senokot-S, Leah-Colace PO 2 tablet BID ALHAJI Administration Tuberculin PPD 5 tu 09/30/19 10:00 Tubersol, Aplisol, Ppd ID 09/30/19 10:01 X1 ONE Problem List Debility (Acute) Fall (Acute) Closed right hip fracture (Acute) Acute blood loss anemia (Acute) Hypothyroidism (Chronic) Depression (Chronic) Lumbar disc disease (Chronic) Neuropathic pain (Chronic) Osteoarthritis (Chronic) Appetite loss (Chronic) Vital Signs Temp Pulse Resp BP Pulse Ox 98.7 F 87 16 154/73 H 95 09/23/19 06:24 09/23/19 06:24 09/23/19 06:24 09/23/19 06:24 09/23/19 06:24 Oxygen Delivery Method Room Air Weight: 74.616 kg Body Mass Index (BMI) 26.5 Sodium 140 mmol/L (136-145) 09/23/19 05:05 Potassium 3.9 mmol/L (3.5-5.1) 09/23/19 05:05 Chloride 105 mmol/L (98-107) 09/23/19 05:05 Carbon Dioxide 29.0 mmol/L (21.0-32.0) 09/23/19 05:05 Anion Gap 6 (5-15) 09/23/19 05:05 BUN 22 mg/dL (7-18) H 09/23/19 05:05 Creatinine 0.74 mg/dL (0.55-1.02) 09/23/19 05:05 Est GFR (MDRD) Af Amer 96 mL/min (>60) 09/23/19 05:05 Est GFR (MDRD) Non-Af 80 mL/min (>60) 09/23/19 05:05 BUN/Creatinine Ratio 29.7 RATIO (10-20) H 09/23/19 05:05 Glucose 94 mg/dL (74-106) 09/23/19 05:05 Assessment/Plan: 1. Pain: Tylenol 1000mg PO Q8h, Oxycodone 5mg PO Q4h PRN pain (-02/05). Please continue to monitor for S/S of increased/decreased pain. 2. Neuropathic pain: Gabapentin 300mg PO TID. Please continue to monitor renal function, symptom improvement. 3. DVT Prophylaxis: Eliquis 2.5mg PO BID through 10/11/19 4. Osteoarthritis: Prednisone 5mg PO Daily. Please continue to monitor blood glucose, S/S nausea/vomiting, symptom improvement. 5. Hypothyroidism: Synthroid 25mcg PO Daily. Please continue to monitor for S/S hyper/hypothyroidism, thyroid panels as clinically indicated. Psychotropic Medications: *6. Depression: Prozac 20mg PO Daily. Please consider a GDR by 02/2020 if clinically appropriate. *7. Insomnia/ Appetite loss: Remeron 15mg PO QHS. Please consider a GDR by 02/2020 if clinically indicated Unnecessary Medications: None Bowel Regimen: Miralax 17g PO Daily, Senna/Docusate 2 tablets PO BID, Dulcolax 10mg PO Daily PRN. Please continue to monitor for S/S increased/decreased diarrhea and/or constipation. Date of Note:: 09/23/19 - Provider Comments Provider responsibility: Provider responsible to enter orders to implement recommendations <Gustabo Coker Chi - Last Filed: 09/23/19 16:58> Progress Note - Pharmacy Subjective: [] Objective: Allergies No Known Allergies Allergy (Verified 07/02/18 00:04) Current Medications Generic Name Dose Route Start Last Admin Trade Name Freq PRN Reason Stop Dose Admin Acetaminophen 1,000 mg 09/22/19 22:00 09/23/19 13:07 Tylenol PO 1,000 mg Q8 ALHAJI Administration Apixaban 2.5 mg 09/22/19 18:00 09/23/19 06:26 Eliquis PO 10/11/19 22:00 2.5 mg BID ALHAJI Administration Bisacodyl 10 mg 09/22/19 22:00 Dulcolax PO DAILY PRN PRN Constipation Calamine/Phenol 1 applic 09/22/19 18:00 09/23/19 06:28 Calmoseptine Ointment TOPICAL 1 applicatio BID ALHAJI Administration Protocol Fluoxetine HCl 20 mg 09/23/19 06:00 09/23/19 06:26 Prozac PO 20 mg DAILY ALHAJI Administration Gabapentin 300 mg 09/22/19 17:45 09/23/19 11:50 Neurontin PO 300 mg TIDCM ALHAJI Administration Levothyroxine Sodium 25 mcg 09/23/19 06:00 09/23/19 06:26 Synthroid PO 25 mcg DAILY ALHAJI Administration Mirtazapine 15 mg 09/22/19 22:00 09/22/19 20:14 Remeron PO 15 mg QHS ALHAJI Administration Nystatin 1 applic 09/22/19 18:00 09/23/19 06:27 Mycostatin Powder TOPICAL 1 applicatio BID ALHAJI Administration Protocol Oxycodone HCl 5 mg 09/22/19 22:01 Oxyir PO Q4H PRN PRN Pain Score 4-10/10 Polyethylene Glycol 17 gm 09/23/19 06:00 09/23/19 06:28 Miralax PO Not Given DAILY ALHAJI Prednisone 5 mg 09/23/19 08:00 09/23/19 08:36 PO 5 mg DAILYCM ALHAJI Administration Senna/Docusate Sodium 2 tablet 09/23/19 06:00 09/23/19 06:27 Senokot-S, Leah-Colace PO 2 tablet BID ALHAJI Administration Tuberculin PPD 5 tu 09/30/19 10:00 Tubersol, Aplisol, Ppd ID 09/30/19 10:01 X1 ONE Problem List Debility (Acute) Fall (Acute) Closed right hip fracture (Acute) Acute blood loss anemia (Acute) Hypothyroidism (Chronic) Depression (Chronic) Lumbar disc disease (Chronic) Neuropathic pain (Chronic) Osteoarthritis (Chronic) Appetite loss (Chronic) Vital Signs Temp Pulse Resp BP Pulse Ox 98.2 F 91 18 144/53 H 93 09/23/19 13:15 09/23/19 13:15 09/23/19 13:15 09/23/19 13:15 09/23/19 13:15 Oxygen Delivery Method Room Air Weight: 74.616 kg Body Mass Index (BMI) 26.5 Sodium 140 mmol/L (136-145) 09/23/19 05:05 Potassium 3.9 mmol/L (3.5-5.1) 09/23/19 05:05 Chloride 105 mmol/L (98-107) 09/23/19 05:05 Carbon Dioxide 29.0 mmol/L (21.0-32.0) 09/23/19 05:05 Anion Gap 6 (5-15) 09/23/19 05:05 BUN 22 mg/dL (7-18) H 09/23/19 05:05 Creatinine 0.74 mg/dL (0.55-1.02) 09/23/19 05:05 Est GFR (MDRD) Af Amer 96 mL/min (>60) 09/23/19 05:05 Est GFR (MDRD) Non-Af 80 mL/min (>60) 09/23/19 05:05 BUN/Creatinine Ratio 29.7 RATIO (10-20) H 09/23/19 05:05 Glucose 94 mg/dL (74-106) 09/23/19 05:05 Assessment/Plan: Psychotropic Medications: Unnecessary Medications: Bowel Regimen: - Provider Comments Provider responsibility: Provider responsible to enter orders to implement recommendations Provider Comments to Recommendations by Pharmacy: Agree
[2019-09-23 13:15] VITALS: BP 144/53; PULSE 91; RESP 18; TEMP 36.8; O2SAT 93
[2019-09-23] MEDS: oxyCODONE 5 MG Tablet PO (17:03)
[2019-09-23] MEDS: Mirtazapine 15 MG Tablet PO (20:53)
[2019-09-24] MEDS: oxyCODONE 5 MG Tablet PO (02:56)
[2019-09-24] MEDS: FLUoxetine 20 MG Capsule PO (05:36)
[2019-09-24] MEDS: Senna/Docusate Sodium 1 Tablet 2 TABLET PO ×2 (05:36→17:39)
[2019-09-24] MEDS: Acetaminophen 500 MG Tablet 1000 MG PO ×3 (05:36→21:05)
[2019-09-24] MEDS: APIXABAN 2.5 MG TABLET PO ×2 (05:36→17:39)
[2019-09-24] MEDS: Levothyroxine 25 MCG TABLET PO (05:36)
[2019-09-24 05:38] VITALS: BP 148/66; PULSE 80; RESP 16; TEMP 36.5; O2SAT 80
[2019-09-24] MEDS: Nystatin Powder 15gm Bottle 1 APPLIC TOPICAL ×2 (05:38→17:40)
[2019-09-24] MEDS: Menthol/Lanolin/Calamine/Znox 113 GM Tube 1 APPLIC TOPICAL ×2 (05:38→17:39)
[2019-09-24] MEDS: predniSONE 5 MG Tablet PO (07:35)
[2019-09-24] MEDS: Gabapentin 300 MG Capsule PO ×3 (07:35→17:38)
[2019-09-24 08:59] VITALS: PULSE 96; RESP 18; O2SAT 90
[2019-09-24 14:51] VITALS: BP 159/70; PULSE 90; RESP 18; TEMP 36.3; O2SAT 92
[2019-09-24] MEDS: Mirtazapine 15 MG Tablet PO (21:05)
[2019-09-25] MEDS: oxyCODONE 5 MG Tablet PO ×2 (02:29→13:57)
[2019-09-25 02:36] VITALS: PULSE 86; RESP 18; O2SAT 94
[2019-09-25] MEDS: FLUoxetine 20 MG Capsule PO (05:22)
[2019-09-25] MEDS: APIXABAN 2.5 MG TABLET PO ×2 (05:22→17:22)
[2019-09-25] MEDS: Acetaminophen 500 MG Tablet 1000 MG PO ×3 (05:22→20:50)
[2019-09-25] MEDS: Senna/Docusate Sodium 1 Tablet 2 TABLET PO (05:22)
[2019-09-25] MEDS: Levothyroxine 25 MCG TABLET PO (05:22)
[2019-09-25] MEDS: Nystatin Powder 15gm Bottle 1 APPLIC TOPICAL ×2 (05:24→17:21)
[2019-09-25 05:25] VITALS: BP 156/60; PULSE 86; RESP 18; TEMP 36.3; O2SAT 94
[2019-09-25] MEDS: Menthol/Lanolin/Calamine/Znox 113 GM Tube 1 APPLIC TOPICAL ×2 (05:25→17:21)
[2019-09-25] MEDS: Gabapentin 300 MG Capsule PO ×3 (07:31→17:22)
[2019-09-25] MEDS: predniSONE 5 MG Tablet PO (07:31)
[2019-09-25 14:46] VITALS: BP 135/70; PULSE 93; RESP 16; TEMP 36.9; O2SAT 95
[2019-09-25] MEDS: Mirtazapine 15 MG Tablet PO (20:50)
[2019-09-26] MEDS: oxyCODONE 5 MG Tablet PO (00:46)
[2019-09-26 05:15] VITALS: BP 157/69; PULSE 77; RESP 14; TEMP 36.9; O2SAT 91
[2019-09-26] MEDS: APIXABAN 2.5 MG TABLET PO ×2 (05:21→17:23)
[2019-09-26] MEDS: Acetaminophen 500 MG Tablet 1000 MG PO ×3 (05:21→20:31)
[2019-09-26] MEDS: FLUoxetine 20 MG Capsule PO (05:21)
[2019-09-26] MEDS: Levothyroxine 25 MCG TABLET PO (05:22)
[2019-09-26] MEDS: Polyethylene Glycol 3350 17 GM PACKET PO (05:24)
[2019-09-26] MEDS: Senna/Docusate Sodium 1 Tablet 2 TABLET PO ×2 (05:24→17:23)
[2019-09-26] MEDS: Nystatin Powder 15gm Bottle 1 APPLIC TOPICAL ×2 (05:24→17:24)
[2019-09-26] MEDS: Menthol/Lanolin/Calamine/Znox 113 GM Tube 1 APPLIC TOPICAL ×2 (05:25→17:24)
[2019-09-26] MEDS: Gabapentin 300 MG Capsule PO ×3 (08:20→17:23)
[2019-09-26] MEDS: predniSONE 5 MG Tablet PO (08:20)
[2019-09-26 14:47] VITALS: BP 112/52; PULSE 91; RESP 20; TEMP 36.8; O2SAT 93
--- NOTE | 2019-09-26 16:11 | NURSING ---
UPDATED DAUGHTER ON PATENT.
[2019-09-26 20:05] VITALS: PULSE 88; RESP 16; O2SAT 93
[2019-09-26] MEDS: Mirtazapine 15 MG Tablet PO (20:32)
[2019-09-27] MEDS: Levothyroxine 25 MCG TABLET PO (06:06)
[2019-09-27] MEDS: APIXABAN 2.5 MG TABLET PO ×2 (06:06→17:11)
[2019-09-27] MEDS: Senna/Docusate Sodium 1 Tablet 2 TABLET PO (06:06)
[2019-09-27] MEDS: FLUoxetine 20 MG Capsule PO (06:06)
[2019-09-27] MEDS: Acetaminophen 500 MG Tablet 1000 MG PO ×2 (06:06→20:24)
[2019-09-27] MEDS: Nystatin Powder 15gm Bottle 1 APPLIC TOPICAL ×2 (06:07→17:11)
[2019-09-27] MEDS: Polyethylene Glycol 3350 17 GM PACKET PO (06:07)
[2019-09-27] MEDS: Menthol/Lanolin/Calamine/Znox 113 GM Tube 1 APPLIC TOPICAL ×2 (06:07→17:10)
[2019-09-27 06:08] VITALS: BP 148/85; PULSE 82; RESP 16; TEMP 37.1; O2SAT 90
[2019-09-27] MEDS: Gabapentin 300 MG Capsule PO ×3 (08:38→17:10)
[2019-09-27] MEDS: predniSONE 5 MG Tablet PO (08:38)
[2019-09-27 08:39] VITALS: RESP 16
--- NOTE | 2019-09-27 13:14 | NURSING ---
Daughter updated, concerned about pt incision.
[2019-09-27 14:13] VITALS: BP 116/54; PULSE 71; RESP 16; TEMP 36.8; O2SAT 96
[2019-09-27] MEDS: Mirtazapine 15 MG Tablet PO (20:25)
[2019-09-28] MEDS: Nystatin Powder 15gm Bottle 1 APPLIC TOPICAL ×2 (05:48→17:13)
[2019-09-28] MEDS: Levothyroxine 25 MCG TABLET PO (05:48)
[2019-09-28] MEDS: Menthol/Lanolin/Calamine/Znox 113 GM Tube 1 APPLIC TOPICAL ×2 (05:48→17:13)
[2019-09-28] MEDS: Senna/Docusate Sodium 1 Tablet 2 TABLET PO ×2 (05:48→17:12)
[2019-09-28] MEDS: Acetaminophen 500 MG Tablet 1000 MG PO ×3 (05:49→19:58)
[2019-09-28] MEDS: APIXABAN 2.5 MG TABLET PO ×2 (05:49→17:12)
[2019-09-28] MEDS: FLUoxetine 20 MG Capsule PO (05:49)
[2019-09-28 05:52] VITALS: BP 125/80; PULSE 86; RESP 18; TEMP 36.8
[2019-09-28] MEDS: predniSONE 5 MG Tablet PO (07:40)
[2019-09-28] MEDS: Gabapentin 300 MG Capsule PO ×3 (07:40→17:12)
[2019-09-28] MEDS: oxyCODONE 5 MG Tablet PO ×2 (07:42→19:06)
[2019-09-28 10:00] VITALS: PULSE 77; RESP 18; O2SAT 92
[2019-09-28 13:39] VITALS: PULSE 88; RESP 16; TEMP 36.3; O2SAT 93
--- NOTE | 2019-09-28 15:59 | NURSING ---
called daughter and updated her on her mom.
[2019-09-28] MEDS: Mirtazapine 15 MG Tablet PO (19:58)
[2019-09-29] MEDS: APIXABAN 2.5 MG TABLET PO ×2 (06:15→17:14)
[2019-09-29] MEDS: FLUoxetine 20 MG Capsule PO (06:15)
[2019-09-29] MEDS: Senna/Docusate Sodium 1 Tablet 2 TABLET PO ×2 (06:15→17:14)
[2019-09-29] MEDS: Levothyroxine 25 MCG TABLET PO (06:15)
[2019-09-29] MEDS: Acetaminophen 500 MG Tablet 1000 MG PO ×3 (06:15→19:47)
[2019-09-29] MEDS: Nystatin Powder 15gm Bottle 1 APPLIC TOPICAL ×2 (06:16→17:13)
[2019-09-29] MEDS: Menthol/Lanolin/Calamine/Znox 113 GM Tube 1 APPLIC TOPICAL ×2 (06:17→17:13)
[2019-09-29] MEDS: Gabapentin 300 MG Capsule PO ×3 (07:57→17:14)
[2019-09-29] MEDS: predniSONE 5 MG Tablet PO (07:57)
[2019-09-29] MEDS: oxyCODONE 5 MG Tablet PO (09:05)
[2019-09-29 14:43] VITALS: BP 130/75; PULSE 63; RESP 20; TEMP 36; O2SAT 96
--- NOTE | 2019-09-29 18:56 | CASEMGMT ---
Social Work BIMS and PHQ-9 completed for MDS assessment. Kerline Rojas, COLOR SPECIALIST SENIOR SYSTEMS DEVELOPER
[2019-09-29 19:45] VITALS: PULSE 90; RESP 17; O2SAT 92
[2019-09-29] MEDS: Mirtazapine 15 MG Tablet PO (19:47)
[2019-09-30] MEDS: oxyCODONE 5 MG Tablet PO (02:09)
[2019-09-30 05:45] LABS: Absolute Lymphocyte Count 1.72 X10^3/uL (0.83-4.51); Absolute Neutrophil Count 5.4 X10^3/uL (2.0-7.7); Basophil# 0.04 X10^3/uL; Basophil% 0.5 % (0-1); Eosinophil# 0.14 X10^3/uL; Eosinophils% 1.7 % (0-5); Hematocrit 30.1 % (37-47); Hemoglobin 9.4 g/dL (12.0-15.0); Lymphocyte # 1.72 X10^3/ul (4.0); Mean Corp Hgb Conc 31.2 g/dL (32-36); Mean Corpuscular Volume 96.2 fL (81-99); Monocyte# 0.78 X10^3/uL; Monocyte% 9.5 % (0-10); NRBC Flagged by Analyzer 0 % (0-5); Neutrophil # 5.43 X10^3/uL (2.7-7.7); Neutrophil % 66.3 % (47-70); Platelet Count 351 K/mm3 (150-450); RBC Distribution Width CV 14.9 % (11.6-14.6); RBC Distribution Width SD 51.4 fl (35.1-43.9); Red Blood Count 3.13 M/mm3 (4.2-5.4); White Blood Count 8.2 K/mm3 (4.4-11.0)
[2019-09-30] MEDS: FLUoxetine 20 MG Capsule PO (06:01)
[2019-09-30] MEDS: APIXABAN 2.5 MG TABLET PO ×2 (06:01→17:23)
[2019-09-30] MEDS: Levothyroxine 25 MCG TABLET PO (06:01)
[2019-09-30] MEDS: Senna/Docusate Sodium 1 Tablet 2 TABLET PO ×2 (06:01→17:23)
[2019-09-30] MEDS: Menthol/Lanolin/Calamine/Znox 113 GM Tube 1 APPLIC TOPICAL ×2 (06:02→17:23)
[2019-09-30] MEDS: Gabapentin 300 MG Capsule PO ×3 (06:02→17:23)
[2019-09-30] MEDS: Acetaminophen 500 MG Tablet 1000 MG PO ×3 (06:02→20:11)
[2019-09-30] MEDS: Nystatin Powder 15gm Bottle 1 APPLIC TOPICAL ×2 (06:03→17:24)
[2019-09-30 06:13] LABS: Anion Gap 7 (5-15); BUN 22 mg/dL (7-18); BUN/Creat Ratio 31.6 RATIO (10-20); Calcium,Total 8.2 mg/dL (8.5-10.1); Chloride 107 mmol/L (98-107); EST Glomerular Filtration Rate 86 mL/min (>60); Est Glom Filt Rate - Afr Amer 103 mL/min (>60); Glucose 92 mg/dL (74-106); Potassium 3.8 mmol/L (3.5-5.1); Sodium Level 139 mmol/L (136-145)
[2019-09-30] MEDS: predniSONE 5 MG Tablet PO (07:54)
[2019-09-30 08:12] VITALS: PULSE 96; RESP 16; O2SAT 92
[2019-09-30] MEDS: Tuberculin,Purif.prot.deriv. 50 TU/ML Vial 5 ML ID (09:21)
--- NOTE | 2019-09-30 09:49 | CASEMGMT ---
Social Work IDT met with patient and daughter via conference call for care plan meeting. Discussed patient's progress with therapy. Pt is mod x2 assist for bed mobility, mod/max for sit to stands with FWW, mod for SPT w/FWW, mod assist to ambulate 5 ft with FWW. pt is very painful with all movements of RLE. Pt is set up at w/c level for grooming and oral care, set up for UE bathing, min for UE dressing, max for LE bathing, total for LE dressing and toileting tasks, mod assist for modified toilet transfer. Pt is on a [facility] soft/thin diet, difficulty eating meat. ST working on orientation and problem solving for safety. Pt is receiving 1:1 visits from activities, enjoys watching the news and loves group activities. Pt's food intake is 75-100% and is conscious of losing weight. Pt is out of room isolation 10/05, hip incision healing well and getting dressing changes. Explained Medicare benefit, but no secondary insurance to to remain after 10/11, would be paying privately for copays. Pt and dtr expressed they can pay privately if she is still recommending for continued therapy and nursing. The goal is to return to [facility], but they are not allowing HHC at this time. Will continue to follow. RADHA Castellano
[2019-09-30 13:49] VITALS: BP 127/51; PULSE 88; RESP 16; TEMP 36.9; O2SAT 93
[2019-09-30] MEDS: Mirtazapine 15 MG Tablet PO (20:11)
[2019-10-01] MEDS: oxyCODONE 5 MG Tablet PO (03:14)
[2019-10-01] MEDS: FLUoxetine 20 MG Capsule PO (06:07)
[2019-10-01] MEDS: Levothyroxine 25 MCG TABLET PO (06:07)
[2019-10-01] MEDS: APIXABAN 2.5 MG TABLET PO ×2 (06:07→17:05)
[2019-10-01] MEDS: Acetaminophen 500 MG Tablet 1000 MG PO ×3 (06:07→20:36)
[2019-10-01] MEDS: Senna/Docusate Sodium 1 Tablet 2 TABLET PO ×2 (06:07→17:05)
[2019-10-01] MEDS: Menthol/Lanolin/Calamine/Znox 113 GM Tube 1 APPLIC TOPICAL ×2 (06:08→17:06)
[2019-10-01] MEDS: Nystatin Powder 15gm Bottle 1 APPLIC TOPICAL ×2 (06:09→17:06)
[2019-10-01 06:13] VITALS: BP 156/53; PULSE 80; RESP 18; TEMP 37.4; O2SAT 92
--- NOTE | 2019-10-01 07:04 | MDS.RN ---
Information for the mds was obtained from review of the clinical record, interview of resident, staff, and direct observation of resident's care.
[2019-10-01] MEDS: Gabapentin 300 MG Capsule PO ×3 (08:19→17:05)
[2019-10-01] MEDS: predniSONE 5 MG Tablet PO (08:19)
[2019-10-01 13:32] VITALS: BP 110/44; PULSE 89; RESP 16; TEMP 36.8; O2SAT 94
[2019-10-01 13:33] VITALS: BP 127/68; PULSE 96; RESP 16; TEMP 36.8; O2SAT 95
[2019-10-01 20:21] VITALS: PULSE 78; RESP 16; O2SAT 95
[2019-10-01] MEDS: Mirtazapine 15 MG Tablet PO (20:37)
[2019-10-02 04:00] VITALS: BP 139/74; PULSE 80; RESP 16; TEMP 36.6; O2SAT 96
[2019-10-02] MEDS: Senna/Docusate Sodium 1 Tablet 2 TABLET PO ×2 (05:27→18:03)
[2019-10-02] MEDS: Acetaminophen 500 MG Tablet 1000 MG PO ×3 (05:27→20:18)
[2019-10-02] MEDS: APIXABAN 2.5 MG TABLET PO ×2 (05:27→18:04)
[2019-10-02] MEDS: Levothyroxine 25 MCG TABLET PO (05:28)
[2019-10-02] MEDS: FLUoxetine 20 MG Capsule PO (05:28)
[2019-10-02] MEDS: Menthol/Lanolin/Calamine/Znox 113 GM Tube 1 APPLIC TOPICAL ×2 (05:29→18:04)
[2019-10-02] MEDS: Nystatin Powder 15gm Bottle 1 APPLIC TOPICAL ×2 (05:29→18:04)
[2019-10-02] MEDS: Gabapentin 300 MG Capsule PO ×3 (07:28→18:03)
[2019-10-02] MEDS: predniSONE 5 MG Tablet PO (07:28)
[2019-10-02 08:28] VITALS: PULSE 85; RESP 16; O2SAT 92
[2019-10-02 13:47] VITALS: BP 101/84; PULSE 96; RESP 18; TEMP 37.3; O2SAT 96
--- NOTE | 2019-10-02 13:47 | RAD_ITS ---
STUDY: X-RAY - PELVIS AND RIGHT HIP REASON FOR EXAM: Female, 84 years old. Right hip fracture repair 09-19-19 -- continued pain TECHNIQUE: 3 views of the pelvis and hip. COMPARISON: Comparison is made with prior study dated September 19, 2019. FINDINGS: The patient is status post medullary yi with interlocking screw fixation of a right intertrochanteric fracture. This is unchanged. RAD/HIP, UNI W/ Pelvis 2-3 Views IMPRESSION: Stable appearance of the post ORIF of the right intertrochanteric fracture. Electronically Signed: Mert García, at 14:50 EDT , Service support ,
[2019-10-02] MEDS: Mirtazapine 15 MG Tablet PO (20:19)
[2019-10-03 04:00] VITALS: BP 143/54; PULSE 80; RESP 18; TEMP 36.9; O2SAT 93
[2019-10-03] MEDS: Acetaminophen 500 MG Tablet 1000 MG PO ×3 (06:39→19:29)
[2019-10-03] MEDS: FLUoxetine 20 MG Capsule PO (06:39)
[2019-10-03] MEDS: Senna/Docusate Sodium 1 Tablet 2 TABLET PO (06:39)
[2019-10-03] MEDS: Levothyroxine 25 MCG TABLET PO (06:39)
[2019-10-03] MEDS: APIXABAN 2.5 MG TABLET PO ×2 (06:39→18:23)
[2019-10-03] MEDS: Nystatin Powder 15gm Bottle 1 APPLIC TOPICAL ×2 (06:40→18:23)
[2019-10-03] MEDS: Menthol/Lanolin/Calamine/Znox 113 GM Tube 1 APPLIC TOPICAL ×2 (06:41→18:21)
[2019-10-03] MEDS: predniSONE 5 MG Tablet PO (08:26)
[2019-10-03] MEDS: Gabapentin 300 MG Capsule PO ×3 (08:26→18:23)
[2019-10-03 14:19] VITALS: BP 125/59; PULSE 80; RESP 17; TEMP 37.2; O2SAT 94
--- NOTE | 2019-10-03 16:09 | NURSING ---
Daughter updated on pt.
--- NOTE | 2019-10-03 18:41 | NURSING ---
UNRULY removed per RN. PT tolerated well. Steri strips applied. no drainage at this time.
[2019-10-03] MEDS: Mirtazapine 15 MG Tablet PO (19:29)
[2019-10-04 04:00] VITALS: BP 146/74; PULSE 76; RESP 14; TEMP 36.6; O2SAT 93
[2019-10-04] MEDS: APIXABAN 2.5 MG TABLET PO ×2 (04:57→17:09)
[2019-10-04] MEDS: Levothyroxine 25 MCG TABLET PO (04:58)
[2019-10-04] MEDS: Senna/Docusate Sodium 1 Tablet 2 TABLET PO (04:58)
[2019-10-04] MEDS: Acetaminophen 500 MG Tablet 1000 MG PO ×3 (04:58→20:12)
[2019-10-04] MEDS: FLUoxetine 20 MG Capsule PO (04:58)
[2019-10-04] MEDS: Nystatin Powder 15gm Bottle 1 APPLIC TOPICAL ×2 (04:59→17:10)
[2019-10-04] MEDS: Menthol/Lanolin/Calamine/Znox 113 GM Tube 1 APPLIC TOPICAL ×2 (04:59→17:10)
[2019-10-04] MEDS: predniSONE 5 MG Tablet PO (08:23)
[2019-10-04] MEDS: Gabapentin 300 MG Capsule PO ×3 (08:23→17:09)
[2019-10-04 09:00] VITALS: PULSE 97; RESP 18; O2SAT 97
[2019-10-04 14:50] VITALS: BP 138/66; PULSE 82; RESP 17; TEMP 37.4; O2SAT 95
--- NOTE | 2019-10-04 15:56 | NURSING ---
no new up dates for family at this time.
[2019-10-04] MEDS: Mirtazapine 15 MG Tablet PO (20:12)
[2019-10-05 04:00] VITALS: BP 133/77; PULSE 72; RESP 14; TEMP 36.8; O2SAT 95
[2019-10-05] MEDS: Acetaminophen 500 MG Tablet 1000 MG PO ×3 (04:47→20:29)
[2019-10-05] MEDS: Levothyroxine 25 MCG TABLET PO (04:47)
[2019-10-05] MEDS: Senna/Docusate Sodium 1 Tablet 2 TABLET PO (04:47)
[2019-10-05] MEDS: FLUoxetine 20 MG Capsule PO (04:47)
[2019-10-05] MEDS: APIXABAN 2.5 MG TABLET PO ×2 (04:47→18:00)
[2019-10-05] MEDS: Menthol/Lanolin/Calamine/Znox 113 GM Tube 1 APPLIC TOPICAL ×2 (04:49→18:01)
[2019-10-05] MEDS: Nystatin Powder 15gm Bottle 1 APPLIC TOPICAL ×2 (04:49→18:00)
[2019-10-05] MEDS: Gabapentin 300 MG Capsule PO ×3 (08:09→18:00)
[2019-10-05] MEDS: predniSONE 5 MG Tablet PO (08:09)
[2019-10-05 14:04] VITALS: BP 152/72; PULSE 85; RESP 16; TEMP 37.2; O2SAT 92
--- NOTE | 2019-10-05 15:52 | NURSING ---
Pt denied need to call family at this time.
--- NOTE | 2019-10-05 20:08 | NURSING ---
Addendum entered by Puja Golden 10/06/19 09:52: Dr Coker reviewed xray, continue current plan of care. Original Note: Pt stood from chair said hip felt different. Moderate amount of dark red blood noted from upper incision. ABD applied. Pt denies increase pain. Site has bruising and non-pitting edema. Dr. Coker notified and new orders received for Xray of the hip.
[2019-10-05] MEDS: Mirtazapine 15 MG Tablet PO (20:29)
--- NOTE | 2019-10-05 21:20 | RAD_ITS ---
STUDY: X-RAY - PELVIS AND RIGHT HIP REASON FOR EXAM: Female, 84 years old. RIGHT HIP PAIN, BLEEDING TECHNIQUE: 3 views of the pelvis and hip. COMPARISON: 10/02/2019 FINDINGS: Stable hardware in the right femur. Stable configuration of right proximal femoral fracture. Lateral soft tissue swelling. RAD/HIP, UNI W/ Pelvis 2-3 Views IMPRESSION: No new osseous abnormality. Electronically Signed: Mikey Loco MD at 22:33 EDT Tel , Service support ,
[2019-10-06] MEDS: oxyCODONE 5 MG Tablet PO (02:30)
[2019-10-06 04:00] VITALS: BP 145/65; PULSE 80; RESP 14; TEMP 37.1; O2SAT 92
[2019-10-06] MEDS: FLUoxetine 20 MG Capsule PO (05:26)
[2019-10-06] MEDS: APIXABAN 2.5 MG TABLET PO ×2 (05:26→17:51)
[2019-10-06] MEDS: Levothyroxine 25 MCG TABLET PO (05:26)
[2019-10-06] MEDS: Acetaminophen 500 MG Tablet 1000 MG PO ×3 (05:26→20:37)
[2019-10-06] MEDS: Nystatin Powder 15gm Bottle 1 APPLIC TOPICAL ×2 (05:28→17:53)
[2019-10-06] MEDS: Menthol/Lanolin/Calamine/Znox 113 GM Tube 1 APPLIC TOPICAL ×2 (05:29→17:53)
[2019-10-06] MEDS: predniSONE 5 MG Tablet PO (08:55)
[2019-10-06] MEDS: Gabapentin 300 MG Capsule PO ×3 (08:55→17:51)
[2019-10-06] MEDS: Cephalexin 500 MG Capsule PO ×2 (10:18→17:50)
[2019-10-06 10:40] VITALS: PULSE 82; RESP 18; O2SAT 91
[2019-10-06 14:14] VITALS: BP 128/49; PULSE 87; RESP 16; TEMP 36.8; O2SAT 95
--- NOTE | 2019-10-06 14:46 | NURSING ---
called and up dated daughter on patient.
[2019-10-06] MEDS: Senna/Docusate Sodium 1 Tablet 2 TABLET PO (17:51)
[2019-10-06] MEDS: Mirtazapine 15 MG Tablet PO (20:37)
[2019-10-07 04:00] VITALS: BP 156/63; PULSE 72; RESP 16; TEMP 36.9; O2SAT 96
[2019-10-07] MEDS: Acetaminophen 500 MG Tablet 1000 MG PO ×3 (05:21→20:48)
[2019-10-07] MEDS: FLUoxetine 20 MG Capsule PO (05:22)
[2019-10-07] MEDS: Levothyroxine 25 MCG TABLET PO (05:22)
[2019-10-07] MEDS: APIXABAN 2.5 MG TABLET PO (05:22)
[2019-10-07] MEDS: Senna/Docusate Sodium 1 Tablet 2 TABLET PO (05:22)
[2019-10-07] MEDS: Cephalexin 500 MG Capsule PO ×2 (05:22→17:45)
[2019-10-07] MEDS: Menthol/Lanolin/Calamine/Znox 113 GM Tube 1 APPLIC TOPICAL ×2 (05:25→17:46)
[2019-10-07] MEDS: Nystatin Powder 15gm Bottle 1 APPLIC TOPICAL ×2 (05:25→17:46)
[2019-10-07] MEDS: predniSONE 5 MG Tablet PO (08:03)
[2019-10-07] MEDS: Gabapentin 300 MG Capsule PO ×3 (08:03→17:45)
--- NOTE | 2019-10-07 10:33 | NURSING ---
pt stated no one to update at this time.
--- NOTE | 2019-10-07 11:48 | NURSING ---
no up dates at this time. daughter and patent did do face time. patent very happy.
[2019-10-07 14:13] VITALS: BP 101/66; PULSE 91; RESP 22; TEMP 36.9; O2SAT 94
[2019-10-07 20:29] VITALS: RESP 16; O2SAT 96
[2019-10-07] MEDS: Mirtazapine 15 MG Tablet PO (20:48)
[2019-10-08 04:00] VITALS: BP 144/68; PULSE 78; RESP 16; TEMP 37; O2SAT 93
[2019-10-08] MEDS: Acetaminophen 500 MG Tablet 1000 MG PO ×3 (05:59→20:13)
[2019-10-08] MEDS: Cephalexin 500 MG Capsule PO ×2 (06:00→17:14)
[2019-10-08] MEDS: Senna/Docusate Sodium 1 Tablet 2 TABLET PO (06:00)
[2019-10-08] MEDS: FLUoxetine 20 MG Capsule PO (06:00)
[2019-10-08] MEDS: Levothyroxine 25 MCG TABLET PO (06:00)
[2019-10-08] MEDS: Menthol/Lanolin/Calamine/Znox 113 GM Tube 1 APPLIC TOPICAL ×2 (06:01→17:14)
[2019-10-08] MEDS: Nystatin Powder 15gm Bottle 1 APPLIC TOPICAL ×2 (06:01→17:14)
[2019-10-08] MEDS: Gabapentin 300 MG Capsule PO ×3 (07:39→17:14)
[2019-10-08] MEDS: predniSONE 5 MG Tablet PO (07:39)
[2019-10-08 08:57] VITALS: PULSE 74; RESP 16; O2SAT 93
[2019-10-08 14:04] VITALS: BP 127/61; PULSE 83; RESP 16; TEMP 37.4; O2SAT 92
[2019-10-08] MEDS: Mirtazapine 15 MG Tablet PO (20:13)
[2019-10-09 04:00] VITALS: BP 152/74; PULSE 74; RESP 16; TEMP 36.8; O2SAT 94
[2019-10-09] MEDS: Levothyroxine 25 MCG TABLET PO (05:23)
[2019-10-09] MEDS: Senna/Docusate Sodium 1 Tablet 2 TABLET PO (05:23)
[2019-10-09] MEDS: FLUoxetine 20 MG Capsule PO (05:23)
[2019-10-09] MEDS: Cephalexin 500 MG Capsule PO ×2 (05:23→17:26)
[2019-10-09] MEDS: Menthol/Lanolin/Calamine/Znox 113 GM Tube 1 APPLIC TOPICAL ×2 (05:26→17:27)
[2019-10-09] MEDS: Nystatin Powder 15gm Bottle 1 APPLIC TOPICAL ×2 (05:27→17:26)
[2019-10-09] MEDS: Acetaminophen 500 MG Tablet 1000 MG PO ×3 (05:28→21:18)
[2019-10-09] MEDS: Gabapentin 300 MG Capsule PO ×3 (07:35→17:25)
[2019-10-09] MEDS: predniSONE 5 MG Tablet PO (07:35)
[2019-10-09 14:19] VITALS: BP 141/62; PULSE 90; RESP 16; TEMP 36.7; O2SAT 93
[2019-10-09] MEDS: Mirtazapine 15 MG Tablet PO (21:18)
[2019-10-09 21:59] VITALS: PULSE 83; RESP 16; O2SAT 92
[2019-10-10] MEDS: Cephalexin 500 MG Capsule PO ×2 (05:01→17:45)
[2019-10-10] MEDS: FLUoxetine 20 MG Capsule PO (05:01)
[2019-10-10] MEDS: Levothyroxine 25 MCG TABLET PO (05:01)
[2019-10-10] MEDS: Senna/Docusate Sodium 1 Tablet 2 TABLET PO ×2 (05:01→17:45)
[2019-10-10] MEDS: Acetaminophen 500 MG Tablet 1000 MG PO ×3 (05:01→20:26)
[2019-10-10] MEDS: Menthol/Lanolin/Calamine/Znox 113 GM Tube 1 APPLIC TOPICAL ×2 (05:05→17:46)
[2019-10-10] MEDS: Nystatin Powder 15gm Bottle 1 APPLIC TOPICAL ×2 (05:05→17:46)
[2019-10-10 05:06] VITALS: BP 148/62; PULSE 74; RESP 16; TEMP 36.9; O2SAT 94
[2019-10-10] MEDS: Gabapentin 300 MG Capsule PO ×3 (07:41→17:45)
[2019-10-10] MEDS: predniSONE 5 MG Tablet PO (07:41)
[2019-10-10] MEDS: oxyCODONE 5 MG Tablet PO (08:09)
[2019-10-10 08:10] VITALS: PULSE 87; RESP 16; O2SAT 90
[2019-10-10 14:20] VITALS: BP 120/48; PULSE 84; RESP 14; TEMP 36.8; O2SAT 91
[2019-10-10] MEDS: Mirtazapine 15 MG Tablet PO (20:26)
[2019-10-11] MEDS: Cephalexin 500 MG Capsule PO ×2 (06:18→18:19)
[2019-10-11] MEDS: FLUoxetine 20 MG Capsule PO (06:18)
[2019-10-11] MEDS: Levothyroxine 25 MCG TABLET PO (06:18)
[2019-10-11] MEDS: Senna/Docusate Sodium 1 Tablet 2 TABLET PO (06:18)
[2019-10-11] MEDS: Acetaminophen 500 MG Tablet 1000 MG PO ×3 (06:18→20:59)
[2019-10-11] MEDS: Nystatin Powder 15gm Bottle 1 APPLIC TOPICAL ×2 (06:19→18:20)
[2019-10-11] MEDS: Menthol/Lanolin/Calamine/Znox 113 GM Tube 1 APPLIC TOPICAL ×2 (06:19→18:20)
[2019-10-11 06:21] VITALS: BP 138/64; PULSE 77; RESP 16; TEMP 37.1; O2SAT 93
[2019-10-11] MEDS: Gabapentin 300 MG Capsule PO ×3 (07:55→18:19)
[2019-10-11] MEDS: predniSONE 5 MG Tablet PO (07:55)
[2019-10-11 15:25] VITALS: BP 117/44; PULSE 87; RESP 16; TEMP 35.8; O2SAT 94
[2019-10-11 20:45] VITALS: PULSE 78; RESP 16; O2SAT 92
[2019-10-11] MEDS: Mirtazapine 15 MG Tablet PO (20:59)
[2019-10-12] MEDS: Levothyroxine 25 MCG TABLET PO (05:32)
[2019-10-12] MEDS: FLUoxetine 20 MG Capsule PO (05:32)
[2019-10-12] MEDS: Acetaminophen 500 MG Tablet 1000 MG PO ×2 (05:32→20:13)
[2019-10-12] MEDS: Cephalexin 500 MG Capsule PO ×2 (05:32→17:54)
[2019-10-12] MEDS: Nystatin Powder 15gm Bottle 1 APPLIC TOPICAL ×2 (05:35→17:55)
[2019-10-12] MEDS: Menthol/Lanolin/Calamine/Znox 113 GM Tube 1 APPLIC TOPICAL ×2 (05:36→17:55)
[2019-10-12 05:39] VITALS: BP 140/69; PULSE 70; RESP 16; TEMP 36.4; O2SAT 93
[2019-10-12] MEDS: Gabapentin 300 MG Capsule PO ×3 (07:56→17:54)
[2019-10-12] MEDS: predniSONE 5 MG Tablet PO (07:56)
[2019-10-12 08:33] LABS: Absolute Lymphocyte Count 1.48 X10^3/uL (0.83-4.51); Absolute Neutrophil Count 3.2 X10^3/uL (2.0-7.7); Basophil# 0.04 X10^3/uL; Basophil% 0.8 % (0-1); Eosinophil# 0.09 X10^3/uL; Eosinophils% 1.7 % (0-5); Hematocrit 36.1 % (37-47); Hemoglobin 11.1 g/dL (12.0-15.0); Lymphocyte # 1.48 X10^3/ul (4.0); Lymphocyte % 28.3 % (19-41); Mean Corp Hgb Conc 30.7 g/dL (32-36); Mean Corpuscular Hgb 29.8 pg (27.0-32.0); Mean Platelet Vol. 8.7 fl (6.2-12.0); Monocyte# 0.36 X10^3/uL; Monocyte% 6.9 % (0-10); NRBC Flagged by Analyzer 0 % (0-5); Neutrophil # 3.23 X10^3/uL (2.7-7.7); Neutrophil % 61.7 % (47-70); Platelet Count 323 K/mm3 (150-450); RBC Distribution Width CV 14.7 % (11.6-14.6); RBC Distribution Width SD 51.8 fl (35.1-43.9); Red Blood Count 3.72 M/mm3 (4.2-5.4); White Blood Count 5.2 K/mm3 (4.4-11.0)
[2019-10-12 08:48] LABS: Anion Gap 9 (5-15); BUN 16 mg/dL (7-18); BUN/Creat Ratio 19.9 RATIO (10-20); Calcium,Total 8.5 mg/dL (8.5-10.1); Chloride 109 mmol/L (98-107); EST Glomerular Filtration Rate 72 mL/min (>60); Est Glom Filt Rate - Afr Amer 87 mL/min (>60); Estimated Creatinine Clearance 49.88 ml/min; Glucose 164 mg/dL (74-106); Potassium 3.4 mmol/L (3.5-5.1); Sodium Level 141 mmol/L (136-145)
[2019-10-12] MEDS: oxyCODONE 5 MG Tablet PO (12:46)
[2019-10-12 13:52] VITALS: BP 125/71; PULSE 86; RESP 16; TEMP 36.9; O2SAT 95
[2019-10-12 14:23] VITALS: PULSE 74; RESP 18; O2SAT 94
[2019-10-12] MEDS: Mirtazapine 15 MG Tablet PO (20:15)
[2019-10-13 04:00] VITALS: BP 157/80; PULSE 80; RESP 18; TEMP 37.1; O2SAT 94
[2019-10-13] MEDS: Levothyroxine 25 MCG TABLET PO (06:46)
[2019-10-13] MEDS: Acetaminophen 500 MG Tablet 1000 MG PO ×2 (06:46→21:33)
[2019-10-13] MEDS: FLUoxetine 20 MG Capsule PO (06:46)
[2019-10-13] MEDS: Cephalexin 500 MG Capsule PO ×2 (06:46→18:08)
[2019-10-13] MEDS: Senna/Docusate Sodium 1 Tablet 2 TABLET PO (06:46)
[2019-10-13] MEDS: Nystatin Powder 15gm Bottle 1 APPLIC TOPICAL ×2 (06:47→18:11)
[2019-10-13] MEDS: Menthol/Lanolin/Calamine/Znox 113 GM Tube 1 APPLIC TOPICAL ×2 (06:48→18:10)
[2019-10-13] MEDS: predniSONE 5 MG Tablet PO (08:07)
[2019-10-13] MEDS: Gabapentin 300 MG Capsule PO ×3 (08:07→18:08)
[2019-10-13] MEDS: oxyCODONE 5 MG Tablet PO (11:55)
[2019-10-13 14:22] VITALS: BP 100/59; PULSE 78; RESP 16; TEMP 36.7; O2SAT 16
--- NOTE | 2019-10-13 16:17 | NURSING ---
NO NEW UPDATES TO GIVE.
[2019-10-13 21:10] VITALS: PULSE 88; RESP 16; O2SAT 92
[2019-10-13] MEDS: Mirtazapine 15 MG Tablet PO (21:33)
[2019-10-14 04:00] VITALS: BP 139/60; PULSE 68; RESP 16; O2SAT 97
[2019-10-14] MEDS: FLUoxetine 20 MG Capsule PO (05:47)
[2019-10-14] MEDS: Levothyroxine 25 MCG TABLET PO (05:47)
[2019-10-14] MEDS: Acetaminophen 500 MG Tablet 1000 MG PO ×3 (05:47→20:19)
[2019-10-14] MEDS: Senna/Docusate Sodium 1 Tablet 2 TABLET PO ×2 (05:47→17:31)
[2019-10-14] MEDS: Menthol/Lanolin/Calamine/Znox 113 GM Tube 1 APPLIC TOPICAL ×2 (05:48→17:31)
[2019-10-14] MEDS: Nystatin Powder 15gm Bottle 1 APPLIC TOPICAL ×2 (05:48→17:30)
[2019-10-14 06:20] VITALS: TEMP 36.6
[2019-10-14 06:24] LABS: Anion Gap 7 (5-15); BUN 21 mg/dL (7-18); BUN/Creat Ratio 24.8 RATIO (10-20); Calcium,Total 8.8 mg/dL (8.5-10.1); Chloride 106 mmol/L (98-107); Creatinine, Serum 0.85 mg/dL (0.55-1.02); EST Glomerular Filtration Rate 68 mL/min (>60); Est Glom Filt Rate - Afr Amer 82 mL/min (>60); Estimated Creatinine Clearance 46.95 ml/min; Glucose 83 mg/dL (74-106); Potassium 5.1 mmol/L (3.5-5.1); Sodium Level 140 mmol/L (136-145)
[2019-10-14] MEDS: predniSONE 5 MG Tablet PO (08:08)
[2019-10-14] MEDS: Gabapentin 300 MG Capsule PO ×3 (08:08→17:31)
[2019-10-14] MEDS: oxyCODONE 5 MG Tablet PO (12:24)
[2019-10-14 14:09] VITALS: BP 100/51; PULSE 87; RESP 16; TEMP 37.2; O2SAT 93
[2019-10-14] MEDS: Mirtazapine 15 MG Tablet PO (20:19)
[2019-10-15] MEDS: Levothyroxine 25 MCG TABLET PO (05:24)
[2019-10-15] MEDS: Acetaminophen 500 MG Tablet 1000 MG PO ×3 (05:24→20:12)
[2019-10-15] MEDS: FLUoxetine 20 MG Capsule PO (05:24)
[2019-10-15] MEDS: Senna/Docusate Sodium 1 Tablet 2 TABLET PO ×2 (05:24→17:06)
[2019-10-15 05:51] VITALS: BP 131/50; PULSE 64; RESP 16; TEMP 36.4; O2SAT 93
[2019-10-15] MEDS: Menthol/Lanolin/Calamine/Znox 113 GM Tube 1 APPLIC TOPICAL ×2 (05:51→17:07)
[2019-10-15] MEDS: Nystatin Powder 15gm Bottle 1 APPLIC TOPICAL ×2 (05:51→17:06)
[2019-10-15 06:32] LABS: Anion Gap 8 (5-15); BUN 26 mg/dL (7-18); BUN/Creat Ratio 29.4 RATIO (10-20); Calcium,Total 8.4 mg/dL (8.5-10.1); Chloride 105 mmol/L (98-107); Creatinine, Serum 0.88 mg/dL (0.55-1.02); EST Glomerular Filtration Rate 65 mL/min (>60); Est Glom Filt Rate - Afr Amer 79 mL/min (>60); Estimated Creatinine Clearance 45.35 ml/min; Glucose 79 mg/dL (74-106); Potassium 4.3 mmol/L (3.5-5.1); Sodium Level 138 mmol/L (136-145)
[2019-10-15] MEDS: Gabapentin 300 MG Capsule PO ×3 (08:25→17:06)
[2019-10-15] MEDS: predniSONE 5 MG Tablet PO (08:25)
[2019-10-15] MEDS: oxyCODONE 5 MG Tablet PO (11:53)
[2019-10-15 14:03] VITALS: BP 132/47; PULSE 77; RESP 14; TEMP 36.3; O2SAT 93
[2019-10-15] MEDS: Mirtazapine 15 MG Tablet PO (20:13)
[2019-10-16 04:00] VITALS: BP 145/64; PULSE 72; RESP 14; TEMP 36.4; O2SAT 92
[2019-10-16] MEDS: Menthol/Lanolin/Calamine/Znox 113 GM Tube 1 APPLIC TOPICAL ×2 (05:25→18:11)
[2019-10-16] MEDS: Nystatin Powder 15gm Bottle 1 APPLIC TOPICAL ×2 (05:25→18:11)
[2019-10-16] MEDS: Levothyroxine 25 MCG TABLET PO (05:26)
[2019-10-16] MEDS: FLUoxetine 20 MG Capsule PO (05:26)
[2019-10-16] MEDS: Acetaminophen 500 MG Tablet 1000 MG PO ×3 (05:26→20:07)
[2019-10-16] MEDS: predniSONE 5 MG Tablet PO (09:13)
[2019-10-16] MEDS: Gabapentin 300 MG Capsule PO ×3 (09:13→18:13)
--- NOTE | 2019-10-16 11:19 | NURSING ---
PT STATED YOU DO NOT HAVE TO CALL MY FAMILY TO GIVE UPDATES TODAY.
[2019-10-16 11:30] VITALS: PULSE 80; RESP 18; O2SAT 94
[2019-10-16 14:38] VITALS: BP 130/58; PULSE 80; RESP 16; TEMP 36.3; O2SAT 91
[2019-10-16] MEDS: Mirtazapine 15 MG Tablet PO (20:07)
[2019-10-17 04:00] VITALS: BP 142/60; PULSE 71; RESP 14; TEMP 37.1; O2SAT 91
[2019-10-17] MEDS: Acetaminophen 500 MG Tablet 1000 MG PO ×3 (06:37→21:11)
[2019-10-17] MEDS: Levothyroxine 25 MCG TABLET PO (06:37)
[2019-10-17] MEDS: FLUoxetine 20 MG Capsule PO (06:37)
[2019-10-17] MEDS: Nystatin Powder 15gm Bottle 1 APPLIC TOPICAL ×2 (06:37→16:30)
[2019-10-17] MEDS: Menthol/Lanolin/Calamine/Znox 113 GM Tube 1 APPLIC TOPICAL ×2 (06:37→16:30)
[2019-10-17] MEDS: Gabapentin 300 MG Capsule PO ×3 (09:58→16:30)
[2019-10-17] MEDS: predniSONE 5 MG Tablet PO (09:58)
[2019-10-17 14:48] VITALS: BP 109/38; PULSE 83; RESP 16; TEMP 36.7; O2SAT 94
--- NOTE | 2019-10-17 18:15 | NURSING ---
PT DENIED NEED TO CONTACT FAMILY FOR AN UPDATE.
[2019-10-17 21:05] VITALS: PULSE 78; RESP 16; O2SAT 95
[2019-10-17] MEDS: Mirtazapine 15 MG Tablet PO (21:11)
[2019-10-18 04:00] VITALS: BP 136/76; PULSE 72; RESP 16; O2SAT 93
[2019-10-18] MEDS: Menthol/Lanolin/Calamine/Znox 113 GM Tube 1 APPLIC TOPICAL ×2 (06:43→17:52)
[2019-10-18] MEDS: Nystatin Powder 15gm Bottle 1 APPLIC TOPICAL ×2 (06:45→17:52)
[2019-10-18] MEDS: Acetaminophen 500 MG Tablet 1000 MG PO ×3 (06:46→20:29)
[2019-10-18] MEDS: FLUoxetine 20 MG Capsule PO (06:46)
[2019-10-18] MEDS: Senna/Docusate Sodium 1 Tablet 2 TABLET PO (06:46)
[2019-10-18] MEDS: Levothyroxine 25 MCG TABLET PO (06:46)
[2019-10-18] MEDS: Gabapentin 300 MG Capsule PO ×3 (08:37→17:51)
[2019-10-18] MEDS: predniSONE 5 MG Tablet PO (08:37)
[2019-10-18 10:00] VITALS: PULSE 66; RESP 16; O2SAT 96
[2019-10-18 14:21] VITALS: BP 104/41; PULSE 82; RESP 20; TEMP 37.6; O2SAT 92
[2019-10-18] MEDS: Mirtazapine 15 MG Tablet PO (20:29)
[2019-10-19 04:00] VITALS: BP 148/53; PULSE 70; RESP 16; TEMP 36.9; O2SAT 96
[2019-10-19] MEDS: Menthol/Lanolin/Calamine/Znox 113 GM Tube 1 APPLIC TOPICAL ×2 (06:21→16:54)
[2019-10-19] MEDS: Acetaminophen 500 MG Tablet 1000 MG PO ×2 (06:22→20:15)
[2019-10-19] MEDS: FLUoxetine 20 MG Capsule PO (06:22)
[2019-10-19] MEDS: Levothyroxine 25 MCG TABLET PO (06:22)
[2019-10-19] MEDS: Nystatin Powder 15gm Bottle 1 APPLIC TOPICAL ×2 (06:22→16:55)
[2019-10-19] MEDS: Senna/Docusate Sodium 1 Tablet 2 TABLET PO (06:23)
[2019-10-19] MEDS: Gabapentin 300 MG Capsule PO ×3 (08:05→16:54)
[2019-10-19] MEDS: predniSONE 5 MG Tablet PO (08:05)
[2019-10-19] MEDS: oxyCODONE 5 MG Tablet PO (12:28)
[2019-10-19 15:16] VITALS: BP 117/45; PULSE 69; RESP 18; TEMP 36.7; O2SAT 90
[2019-10-19] MEDS: Mirtazapine 15 MG Tablet PO (20:15)
[2019-10-19 20:16] VITALS: PULSE 77; RESP 16; O2SAT 92
[2019-10-20] MEDS: FLUoxetine 20 MG Capsule PO (05:34)
[2019-10-20] MEDS: Acetaminophen 500 MG Tablet 1000 MG PO ×3 (05:34→21:45)
[2019-10-20] MEDS: Senna/Docusate Sodium 1 Tablet 2 TABLET PO ×2 (05:34→18:08)
[2019-10-20] MEDS: Levothyroxine 25 MCG TABLET PO (05:34)
[2019-10-20] MEDS: Nystatin Powder 15gm Bottle 1 APPLIC TOPICAL ×2 (05:36→18:09)
[2019-10-20] MEDS: Menthol/Lanolin/Calamine/Znox 113 GM Tube 1 APPLIC TOPICAL ×2 (05:36→18:09)
[2019-10-20 05:37] VITALS: BP 133/57; PULSE 73; RESP 16; TEMP 36.8; O2SAT 96
[2019-10-20] MEDS: Gabapentin 300 MG Capsule PO ×3 (09:05→18:08)
[2019-10-20] MEDS: predniSONE 5 MG Tablet PO (09:06)
[2019-10-20 11:58] VITALS: PULSE 85; RESP 16; O2SAT 90
[2019-10-20] MEDS: oxyCODONE 5 MG Tablet PO (12:24)
--- NOTE | 2019-10-20 15:17 | CASEMGMT ---
Social Work Spoke with pt's dtr about DC plans for 10/26. Dtr agreeable. Spoke with [facility] about pt's needs and DC 10/26 - they can accept. They are accepting [facility]. Referral made for PT/OT/ST. No DME needs. Plan: DC to [facility] PT/OT/ST. Kerline Rojas, RADHA ALVARADOW
[2019-10-20 15:25] VITALS: BP 103/36; PULSE 70; RESP 16; TEMP 36.7; O2SAT 97
--- NOTE | 2019-10-20 21:43 | PCM.DC ---
- Discharge Diagnoses Current Active Problems: Current Active and Chronic Problems Debility (Acute) Fall (Acute) Closed right hip fracture (Acute) Acute blood loss anemia (Acute) Hypothyroidism (Chronic) Depression (Chronic) Lumbar disc disease (Chronic) Neuropathic pain (Chronic) Osteoarthritis (Chronic) Appetite loss (Chronic) You will use the following diet at home:: No restrictions, Regular Your food should be the consistency of: Regular Your liquids should be the consistency of: Regular/Thin Discharge Activity: Return to Normal Activity, May Shower, Use Walker Weight Bearing Status: Weight bearing as tolerated Call your doctor if you observe: Fever of 101 or Higher, Inability to urinate, Inability to have a bowel movement, Shortness of breath, Chest pain, Uncontrolled pain Allergies/Adverse Reactions: Allergies No Known Allergies Allergy (Verified 07/02/18 00:04) Medications to take at Discharge Fluoxetine [Prozac] 20 mg PO DAILY 01/31/18 Levothyroxine [Synthroid] 25 mcg PO DAILY 01/31/18 Gabapentin [Neurontin] 300 mg PO TID 07/02/18 Mirtazapine 15 mg PO QHS 07/02/18 Prednisone 5 mg PO DAILY 07/02/18 Acetaminophen [Tylenol] 1,000 mg PO Q8 09/22/19 Menthol/Lanolin/Calamine/Znox [Calmoseptine Ointment] 1 applic TOPICAL BID tube 10/20/19 Nystatin Powder [Mycostatin Powder] 1 applic TOPICAL BID bottle 10/20/19 Oxycodone [Oxyir] 5 mg PO Q4H PRN PRN 7 Days #42 tablet 10/20/19 Polyethylene Glycol 3350 [Miralax] 17 gm PO DAILY #30 packet 10/20/19 Potassium Chloride [K-Dur] 20 meq PO DAILYCM #30 tab 10/20/19 Senna/Docusate Sodium [Senokot-S] 2 tab PO BID #120 tab 10/20/19 The following prescriptions were given: Potassium Chloride [K-Dur] 20 meq PO DAILYCM #30 tab Transmission Status: Pending to [facility] Polyethylene Glycol 3350 [Miralax] 17 gm PO DAILY #30 packet Transmission Status: Pending to [facility] Oxycodone [Oxyir] 5 mg PO Q4H PRN PRN 7 Days #42 tablet PRN Reason: Pain Score 4-10/10 Transmission Status: Sent to [facility] Senna/Docusate Sodium [Senokot-S] 2 tab PO BID #120 tab Transmission Status: Pending to [facility] Primary Care Physician: Dulce Woodson MD [Primary Care Provider] - Please follow up with your Primary Care Physician in: 1 week. Test Results: Test results from this visit will be discussed in further detail at your follow-up appointment, if applicable. Please Follow Up With: Calin Natarajan MD When: 2 weeks. Please Follow Up With: Dulce Vail MD Proposed Discharge Date: 10/27/19
--- NOTE | 2019-10-20 21:45 | PCM.DC.SUM ---
Discharge Date and Diagnosis - Problem List Patient Problems: Active and Suspected Problems Debility (Acute) Fall (Acute) Closed right hip fracture (Acute) Acute blood loss anemia (Acute) Date of Admission: 09/22/19 Date of Discharge: 10/27/19 - Primary Discharge Diagnosis Acute Problems: Active Problems Debility (Acute) Fall (Acute) Closed right hip fracture (Acute) Acute blood loss anemia (Acute) - Secondary Discharge Diagnosis Chronic Problems: Chronic Problems Hypothyroidism (Chronic) Depression (Chronic) Lumbar disc disease (Chronic) Neuropathic pain (Chronic) Osteoarthritis (Chronic) Appetite loss (Chronic) Sacroiliac dysfunction (Chronic) Lumbar degenerative disc disease (Chronic) Coccydynia (Chronic) Hospital Course and Treatment Imaging Results: 09/22/19 15:23 Diet: Regular Diet Food consistency:: Regular Liquid Consistency:: Regular/Thin Diet Comments: CHOPPED MEAT ONLY; distant supervision, alternate bites/sips Clinical Impression(s) from Imaging Studies Hip/Pelvis X-Ray 10/05/19 21:20 IMPRESSION: No new osseous abnormality. Electronically Signed: Mikey Loco MD at 22:33 EDT Tel , Service support , Operations: None Procedures: None Summary of Care Provided: The patient is a 84 year old Female with below past medical history hospitalized for right hip fracture, underwent right hip cephalo-medullary nail fixation 09/19/[address] Natarajan, postoperative course complicated by anemia requiring 2 units PRBC transfusion, admitted to TCU with debility, here for rehabilitation, strengthening, prior to discharge to [facility]. On TCU, Speech therapy consulted for dysphagia. Potassium added for hypokalemia, maybe able to discontinue later on. Discharge to [facility] PT/OT/ST. Patient Problems: Active and Suspected Problems Debility (Acute) Fall (Acute) Closed right hip fracture (Acute) Acute blood loss anemia (Acute) - Physical Exam Vitals/I&O's: Vital Signs Temp Pulse Resp BP Pulse Ox 98.1 F 70 16 103/36 L 97 10/20/19 15:25 10/20/19 15:25 10/20/19 15:25 10/20/19 15:25 10/20/19 15:25 Oxygen Flow Rate (L/min) 92 Oxygen Delivery Method Room Air Weight: 64.183 kg Body Mass Index (BMI) 26.5 Intake and Output for Last 24 Hours 10/18/19 10/19/19 10/20/19 23:59 23:59 23:59 Intake Total 1020 / 1020 840 / 840 180 / 180 Balance 1020 / 1020 840 / 840 180 / 180 Current Medications Acetaminophen (Tylenol) 1,000 mg PO 0600,1200,2000 [facility] Last Admin: 10/20/19 12:02 Dose: 1,000 mg Documented by: Bisacodyl (Dulcolax) 10 mg PO DAILY PRN PRN PRN Reason: Constipation Calamine/Phenol (Calmoseptine Ointment) 1 applic TOPICAL BID [facility]; Protocol Last Admin: 10/20/19 18:09 Dose: 1 applicatio Documented by: Fluoxetine HCl (Prozac) 20 mg PO DAILY [facility] Last Admin: 10/20/19 05:34 Dose: 20 mg Documented by: Gabapentin (Neurontin) 300 mg PO TIDCM [facility] Last Admin: 10/20/19 18:08 Dose: 300 mg Documented by: Levothyroxine Sodium (Synthroid) 25 mcg PO DAILY [facility] Last Admin: 10/20/19 05:34 Dose: 25 mcg Documented by: Mirtazapine (Remeron) 15 mg PO QHS [facility] Last Admin: 10/19/19 20:15 Dose: 15 mg Documented by: Nystatin (Mycostatin Powder) 1 applic TOPICAL BID [facility]; Protocol Last Admin: 10/20/19 18:09 Dose: 1 applicatio Documented by: Oxycodone HCl (Oxyir) 5 mg PO Q4H PRN PRN PRN Reason: Pain Score 4-10/10 Last Admin: 10/20/19 12:24 Dose: 5 mg Documented by: Polyethylene Glycol (Miralax) 17 gm PO DAILY [facility] Last Admin: 10/20/19 05:36 Dose: Not Given Documented by: [facility] Admin: 10/20/19 09:04 Dose: 20 meq Documented by: Pred[facility]one () [facility] Last Admin: 10/20/19 09:06 Dose: 5 mg Documented by: Senna/Docusate Sodium (Senokot-S, Leah-Colace) 2 tablet PO BID ALHAJI Last Admin: 10/20/19 18:08 Dose: 2 tablet Documented by: Discharge Diet: No Restrictions Discharge Activity: Return to Normal Activity, May Shower, Use Walker Weight Bearing Status: Weight bearing as tolerated Call your doctor if you observe: Fever of 101 or Higher, Inability to urinate, Inability to have a bowel movement, Shortness of breath, Chest pain, Uncontrolled pain Home Medications: Medications to take at Discharge Fluoxetine [Prozac] 20 mg PO DAILY 01/31/18 Levothyroxine [Synthroid] 25 mcg PO DAILY 01/31/18 Gabapentin [Neurontin] 300 mg PO TID 07/02/18 Mirtazapine 15 mg PO QHS 07/02/18 Prednisone 5 mg PO DAILY 07/02/18 Acetaminophen [Tylenol] 1,000 mg PO Q8 09/22/19 Menthol/Lanolin/Calamine/Znox [Calmoseptine Ointment] 1 applic TOPICAL BID tube 10/20/19 Nystatin Powder [Mycostatin Powder] 1 applic TOPICAL BID bottle 10/20/19 Oxycodone [Oxyir] 5 mg PO Q4H PRN PRN 7 Days #42 tablet 10/20/19 Polyethylene Glycol 3350 [Miralax] 17 gm PO DAILY #30 packet 10/20/19 Potassium Chloride [K-Dur] 20 meq PO DAILYCM #30 tab 10/20/19 Senna/Docusate Sodium [Senokot-S] 2 tab PO BID #120 tab 10/20/19 Following Prescrptions Were Given to Patient: Potassium Chloride [K-Dur] 20 meq PO DAILYCM #30 tab Transmission Status: Pending to [facility] Polyethylene Glycol 3350 [Miralax] 17 gm PO DAILY #30 packet Transmission Status: Pending to [facility] Oxycodone [Oxyir] 5 mg PO Q4H PRN PRN 7 Days #42 tablet PRN Reason: Pain Score 4-10/10 Transmission Status: Sent to [facility] Senna/Docusate Sodium [Senokot-S] 2 tab PO BID #120 tab Transmission Status: Pending to [facility] Primary Care Physician: Dulce Woodson MD [Primary Care Provider] - Please follow up with your Primary Care Physician in: 1 week. Please Follow Up With: Calin Natarajan MD When: 2 weeks. Please Follow Up With: Dulce Vail MD Disposition: Asstd Living/Non-Skill NH Minutes spent on discharge:: 35 Patient Condition:: Stable Medical Necessity - Tobacco Use Smoking Status: Former smoker Tobacco Use: Cigarettes Meaningful Use Info Meaningful Use Diagnoses (Choose all that apply): None applicable
[2019-10-20] MEDS: Mirtazapine 15 MG Tablet PO (21:46)
--- NOTE | 2019-10-20 21:47 | PCM.TXEXTCAR ---
- Diet 09/22/19 15:23 Diet: Regular Diet Food consistency:: Regular Liquid Consistency:: Regular/Thin Diet Comments: CHOPPED MEAT ONLY; distant supervision, alternate bites/sips - Routine Orders/Code Status Suppository Type: Dulcolax 10mg Suppository Frequency: Daily PRN [facility] No int[facility]. - Wound(s) RIGHT UPPER THIGH Wound Type: Surgical Incision Dressing Change: Dry Sterile Dressing RIGHT DISTAL HIP Wound Type: Surgical Incision Dressing Change: Dry Sterile Dressing RIGHT ELBOW Wound Type: Abrasion RIGHT TOP ANKLE Wound Type: Abrasion RIGHT KNEE Wound Type: Abrasion RIGHT INNER THIGH Wound Type: Blisters - Therapies Weight Bearing: Weight bearing as tolerated Extremity Affected:: Bilateral Lower Physical Therapy: Eval and Treat Occupational Therapy: Eval and Treat Speech Therapy: Eval and Treat - Problem/Diagnosis (1) Debility Status: Acute Current Visit: Yes (2) Fall Status: Acute Current Visit: Yes (3) Closed right hip fracture Status: Acute Current Visit: Yes (4) Acute blood loss anemia Status: Acute Current Visit: Yes (5) Hypothyroidism Status: Chronic Current Visit: Yes (6) Depression Status: Chronic Current Visit: Yes (7) Lumbar disc disease Status: Chronic Current Visit: Yes (8) Neuropathic pain Status: Chronic Current Visit: Yes (9) Osteoarthritis Status: Chronic Current Visit: Yes (10) Appetite loss Status: Chronic Current Visit: Yes - Allergies/Procedures Done in Hospital Allergies/Adverse Reactions: Allergies No Known Allergies Allergy (Verified 07/02/18 00:04) - Type of Care/Length of Stay Estimated LOS: More Than 30 Days Type of Care Needed: Skilled Nursing/Assisted Living Rehab Potential: Fair Prognosis: Fair - Additional Orders/Day of Discharge Day of Discharge: 10/27/19 - Dietary and Speech Recommendations Speech Linguistic Eval Summary: BRENNON-III admininstered at bedside. Pt demonstratedadequate immediate recall w/ impaired STM and encoding for delayed retrieval, fluency impaired w/ anomias evident in conversation and structured naming tasks. Pt is aware of difficulty recalling desired words and reports this is a significant exacerbation from baseline memory and word finding difficulties. Education provided re: exacerbation of underlying mild cogntiive deificts after undergoing anesthesia and when out of home environment w/ unfamiliar faces and routines. Support and encouragement given - recommend skilled ST intervention targeting compensatory strategies for memory and fluency to improve ease of communicating wants/needs to staff, social interactions and to improve functional independence. Swallow evaluation to be completed later this date vs. 09/29/2019. - Follow Up Care Primary Care Physician: Dulce Woodson MD [Primary Care Provider] - Please follow up with your Primary Care Physician in: 1 week. Please Follow Up With: Calin Natarajan MD When: 2 weeks. Please Follow Up With: Dulce Vail MD
[2019-10-21] MEDS: Acetaminophen 500 MG Tablet 1000 MG PO ×3 (05:03→20:32)
[2019-10-21] MEDS: Levothyroxine 25 MCG TABLET PO (05:03)
[2019-10-21] MEDS: FLUoxetine 20 MG Capsule PO (05:03)
[2019-10-21] MEDS: Senna/Docusate Sodium 1 Tablet 2 TABLET PO ×2 (05:04→17:25)
[2019-10-21] MEDS: Menthol/Lanolin/Calamine/Znox 113 GM Tube 1 APPLIC TOPICAL ×2 (05:05→17:25)
[2019-10-21] MEDS: Nystatin Powder 15gm Bottle 1 APPLIC TOPICAL ×2 (05:05→17:25)
[2019-10-21 05:27] VITALS: BP 151/70; PULSE 70; RESP 16; TEMP 36.7; O2SAT 92
[2019-10-21] MEDS: predniSONE 5 MG Tablet PO (08:25)
[2019-10-21] MEDS: Gabapentin 300 MG Capsule PO ×3 (08:25→17:25)
[2019-10-21] MEDS: oxyCODONE 5 MG Tablet PO (12:07)
[2019-10-21 14:04] VITALS: BP 118/57; PULSE 82; RESP 18; TEMP 37.3; O2SAT 95
[2019-10-21] MEDS: Mirtazapine 15 MG Tablet PO (20:32)
[2019-10-21 20:35] VITALS: PULSE 83; RESP 16; O2SAT 95
[2019-10-22 04:00] VITALS: BP 144/67; PULSE 70; RESP 16; TEMP 36.7; O2SAT 92
[2019-10-22] MEDS: FLUoxetine 20 MG Capsule PO (05:12)
[2019-10-22] MEDS: Levothyroxine 25 MCG TABLET PO (05:12)
[2019-10-22] MEDS: Nystatin Powder 15gm Bottle 1 APPLIC TOPICAL ×2 (05:13→17:04)
[2019-10-22] MEDS: Senna/Docusate Sodium 1 Tablet 2 TABLET PO ×2 (05:13→17:03)
[2019-10-22] MEDS: Acetaminophen 500 MG Tablet 1000 MG PO ×3 (05:13→22:19)
[2019-10-22] MEDS: Menthol/Lanolin/Calamine/Znox 113 GM Tube 1 APPLIC TOPICAL ×2 (05:16→17:04)
[2019-10-22] MEDS: Gabapentin 300 MG Capsule PO ×3 (08:04→17:03)
[2019-10-22] MEDS: predniSONE 5 MG Tablet PO (08:04)
[2019-10-22 10:00] VITALS: PULSE 91; RESP 16; O2SAT 91
[2019-10-22 14:41] VITALS: BP 123/48; PULSE 76; RESP 14; TEMP 37.2; O2SAT 91
[2019-10-22] MEDS: Mirtazapine 15 MG Tablet PO (22:19)
[2019-10-23 04:00] VITALS: BP 132/82; PULSE 73; RESP 16; TEMP 36.8; O2SAT 95
[2019-10-23] MEDS: Menthol/Lanolin/Calamine/Znox 113 GM Tube 1 APPLIC TOPICAL ×2 (05:14→18:14)
[2019-10-23] MEDS: Acetaminophen 500 MG Tablet 1000 MG PO ×3 (05:15→20:13)
[2019-10-23] MEDS: Senna/Docusate Sodium 1 Tablet 2 TABLET PO ×2 (05:15→18:14)
[2019-10-23] MEDS: FLUoxetine 20 MG Capsule PO (05:15)
[2019-10-23] MEDS: Levothyroxine 25 MCG TABLET PO (05:15)
[2019-10-23] MEDS: Nystatin Powder 15gm Bottle 1 APPLIC TOPICAL ×2 (05:17→18:15)
[2019-10-23] MEDS: Gabapentin 300 MG Capsule PO ×3 (08:38→18:14)
[2019-10-23] MEDS: predniSONE 5 MG Tablet PO (08:38)
[2019-10-23] MEDS: oxyCODONE 5 MG Tablet PO (12:00)
[2019-10-23 14:13] VITALS: BP 148/46; PULSE 72; RESP 14; TEMP 36.8; O2SAT 91
[2019-10-23] MEDS: Mirtazapine 15 MG Tablet PO (20:13)
[2019-10-24 04:00] VITALS: BP 122/75; PULSE 70; RESP 14; TEMP 36.6; O2SAT 91
[2019-10-24] MEDS: Menthol/Lanolin/Calamine/Znox 113 GM Tube 1 APPLIC TOPICAL ×2 (06:25→18:01)
[2019-10-24] MEDS: Nystatin Powder 15gm Bottle 1 APPLIC TOPICAL ×2 (06:25→18:01)
[2019-10-24] MEDS: FLUoxetine 20 MG Capsule PO (06:26)
[2019-10-24] MEDS: Levothyroxine 25 MCG TABLET PO (06:26)
[2019-10-24] MEDS: Senna/Docusate Sodium 1 Tablet 2 TABLET PO (06:26)
[2019-10-24] MEDS: Acetaminophen 500 MG Tablet 1000 MG PO ×3 (06:26→20:14)
[2019-10-24] MEDS: Gabapentin 300 MG Capsule PO ×3 (08:29→18:01)
[2019-10-24] MEDS: predniSONE 5 MG Tablet PO (08:30)
--- NOTE | 2019-10-24 11:28 | PCA ---
RN daniela came out an informed me that pt was incont of stool, went into room to assist pt with cleanup, pt was sitting in recliner holding the lower under part of her night gown up through her legs saving stool from hitting the floor. I asked pt if she was ok, pt stated she was fine she tried to get up on her own and it just came on all of a sudden, asked her why she did not push her light to ask for assistance to the bathroom pt pointed toward the bed and said i didn't have my call light plus i don't know what to push i showed pt her call light that was located next to her left leg in the chair, pt shook her head in a NO manner. she than stated well i don't even know what to push i showed her the call light and said the big red button calls for assistance took her the bathroom and cleaned her up, placed her into recliner with call light on lap.
[2019-10-24 14:25] VITALS: BP 113/50; PULSE 73; RESP 16; TEMP 36.8; O2SAT 90
[2019-10-24 15:28] VITALS: PULSE 80; RESP 16; O2SAT 92
[2019-10-24] MEDS: Mirtazapine 15 MG Tablet PO (20:15)
[2019-10-25 04:00] VITALS: BP 143/73; PULSE 71; RESP 14; TEMP 36.6; O2SAT 93
[2019-10-25] MEDS: FLUoxetine 20 MG Capsule PO (05:20)
[2019-10-25] MEDS: Levothyroxine 25 MCG TABLET PO (05:20)
[2019-10-25] MEDS: Acetaminophen 500 MG Tablet 1000 MG PO ×3 (05:20→20:02)
[2019-10-25] MEDS: Nystatin Powder 15gm Bottle 1 APPLIC TOPICAL ×2 (05:21→16:57)
[2019-10-25] MEDS: Menthol/Lanolin/Calamine/Znox 113 GM Tube 1 APPLIC TOPICAL ×2 (05:21→16:57)
[2019-10-25] MEDS: predniSONE 5 MG Tablet PO (08:18)
[2019-10-25] MEDS: Gabapentin 300 MG Capsule PO ×3 (08:18→16:57)
[2019-10-25 14:53] VITALS: BP 127/55; PULSE 77; RESP 18; TEMP 36.8; O2SAT 93
[2019-10-25] MEDS: Mirtazapine 15 MG Tablet PO (20:02)
[2019-10-26 04:00] VITALS: BP 138/73; PULSE 73; RESP 14; TEMP 36.6; O2SAT 93
[2019-10-26] MEDS: FLUoxetine 20 MG Capsule PO (05:54)
[2019-10-26] MEDS: Senna/Docusate Sodium 1 Tablet 2 TABLET PO ×2 (05:54→17:23)
[2019-10-26] MEDS: Acetaminophen 500 MG Tablet 1000 MG PO ×3 (05:54→21:39)
[2019-10-26] MEDS: Levothyroxine 25 MCG TABLET PO (05:54)
[2019-10-26] MEDS: Nystatin Powder 15gm Bottle 1 APPLIC TOPICAL ×2 (05:57→17:26)
[2019-10-26] MEDS: Menthol/Lanolin/Calamine/Znox 113 GM Tube 1 APPLIC TOPICAL ×2 (05:57→17:25)
[2019-10-26] MEDS: Gabapentin 300 MG Capsule PO ×3 (08:59→17:23)
[2019-10-26] MEDS: predniSONE 5 MG Tablet PO (08:59)
[2019-10-26 10:45] VITALS: PULSE 76; RESP 16; O2SAT 92
--- NOTE | 2019-10-26 12:51 | NURSING ---
pt said she updated her daughter Chevy of her d/c tomorrow, Chevy will be picking up pt around 10-10:30 to take pt back to [facility]
[2019-10-26 14:25] VITALS: BP 109/55; PULSE 84; RESP 16; TEMP 36.9; O2SAT 90
[2019-10-26] MEDS: Mirtazapine 15 MG Tablet PO (21:39)
[2019-10-27 04:40] VITALS: BP 132/59; PULSE 67; RESP 16; TEMP 36.9; O2SAT 95
[2019-10-27] MEDS: FLUoxetine 20 MG Capsule PO (05:20)
[2019-10-27] MEDS: Levothyroxine 25 MCG TABLET PO (05:20)
[2019-10-27] MEDS: Senna/Docusate Sodium 1 Tablet 2 TABLET PO (05:20)
[2019-10-27] MEDS: Menthol/Lanolin/Calamine/Znox 113 GM Tube 1 APPLIC TOPICAL (05:20)
[2019-10-27] MEDS: Acetaminophen 500 MG Tablet 1000 MG PO ×2 (05:20→11:26)
[2019-10-27] MEDS: Nystatin Powder 15gm Bottle 1 APPLIC TOPICAL (05:22)
[2019-10-27] MEDS: predniSONE 5 MG Tablet PO (08:43)
[2019-10-27] MEDS: Gabapentin 300 MG Capsule PO ×2 (08:43→11:26)
--- NOTE | 2019-10-27 09:50 | CASEMGMT ---
Social Work Pt ready for discharge on this date with plan to return to [facility]. SW spoke with [facility] who states pt is not able to be transported by her family and [facility] is not able to transport pt due to their current Covid precautions. Transportation arranged with [facility] for 12:30 pickup. Pt dgt made aware and also that transportation will be private pay. Discharge orders faxed to [facility]. [facility] Pt, dgt, [facility] and nursing notified of discharge time of 12:30. No further discharge needs. ECTOR Garza
[2019-10-27 10:59] VITALS: PULSE 77; RESP 16; O2SAT 94
[2019-10-27 11:11] VITALS: BP 120/52; PULSE 77; RESP 16; TEMP 36.5
--- NOTE | 2019-10-27 13:15 | NURSING ---
pt D/C'd to [facility]
== END 2019-10-27 12:30 | disposition home health service (06) | DRG 560 ==
PROVIDERS: Admitting Provider Family Medicine Geriatric Medicine; PCP Family Medicine; Visit Provider Family Medicine Geriatric Medicine
DX: S32.391D Other fracture of right ilium, subsequent encounter for fracture with routine healing (principal); D62 Acute posthemorrhagic anemia; S72.141D Displaced intertrochanteric fracture of right femur, subsequent encounter for closed fracture with routine healing; Z23 Encounter for immunization; W19.XXXD Unspecified fall, subsequent encounter; M19.90 Unspecified osteoarthritis, unspecified site; E03.9 Hypothyroidism, unspecified; M51.9 Unspecified thoracic, thoracolumbar and lumbosacral intervertebral disc disorder; F32.9 Major depressive disorder, single episode, unspecified; Z87.891 Personal history of nicotine dependence; B35.4 Tinea corporis; M51.36 Other intervertebral disc degeneration, lumbar region; E87.6 Hypokalemia
CPT/HCPCS: 36415; 73502; 80048; 85025; 87635; 92507; 92523; 92526; 92610; 97110; 97116; 97162; 97166; 97530; 97535; 97802; G0009; 90670; U0004

== ENCOUNTER → 2019-12-24 08:45 | Outpatient (REF) | payer MEDICARE, SELFPAY ==
[2019-09-22 15:11] VITALS: BMI 26.5
[2019-12-24 10:07] LABS: Hematocrit 37.3 % (37-47); Hemoglobin 12.3 g/dL (12.0-15.0); Mean Platelet Vol. 10.2 fl (6.2-12.0); Platelet Count 230 K/mm3 (150-450); RBC Distribution Width CV 12.7 % (11.6-14.6); RBC Distribution Width SD 43.8 fl (35.1-43.9); Red Blood Count 3.97 M/mm3 (4.2-5.4); White Blood Count 4.8 K/mm3 (4.4-11.0)
[2019-12-24 10:42] LABS: Anion Gap 5 (5-15); BUN 16 mg/dL (7-18); BUN/Creat Ratio 19.9 RATIO (10-20); Calcium,Total 8.4 mg/dL (8.5-10.1); Chloride 109 mmol/L (98-107); EST Glomerular Filtration Rate 72 mL/min (>60); Est Glom Filt Rate - Afr Amer 88 mL/min (>60); Glucose 80 mg/dL (74-106); Potassium 3.7 mmol/L (3.5-5.1); Sodium Level 142 mmol/L (136-145); Thyroid Stim Hormone (TSH) 0.89 uIU/mL (0.358-3.74)
== END ==
PROVIDERS: PCP Family Medicine; Referring Provider Family Medicine; Visit Provider Family Medicine
DX: E03.9 Hypothyroidism, unspecified (principal); G35 Multiple sclerosis; Z79.899 Other long term (current) drug therapy
CPT/HCPCS: 80048; 84443; 85027

== ENCOUNTER → 2020-01-01 08:15 | Outpatient (REF) | payer MEDICARE, SELFPAY ==
[2019-09-22 15:11] VITALS: BMI 26.5
[2020-01-01 11:56] LABS: Anion Gap 6 (5-15); BUN 18 mg/dL (7-18); BUN/Creat Ratio 20.7 RATIO (10-20); Calcium,Total 8.2 mg/dL (8.5-10.1); Chloride 108 mmol/L (98-107); Creatinine, Serum 0.87 mg/dL (0.55-1.02); EST Glomerular Filtration Rate 66 mL/min (>60); Est Glom Filt Rate - Afr Amer 80 mL/min (>60); Glucose 75 mg/dL (74-106); Potassium 3.8 mmol/L (3.5-5.1); Sodium Level 142 mmol/L (136-145)
== END ==
LOC: OLS.BROOKB 08:15
PROVIDERS: PCP Family Medicine; Referring Provider Family Medicine; Visit Provider Family Medicine
DX: D64.9 Anemia, unspecified (principal); E03.9 Hypothyroidism, unspecified
CPT/HCPCS: 80048

== ENCOUNTER → 2020-02-25 19:42 | Outpatient (REF) | payer MEDICARE, SELFPAY ==
[2019-09-22 15:11] VITALS: BMI 26.5
[2020-02-26 07:07] LABS: Mucous, Urine 0 SEEN /hpf (<or=2+); Red Blood Cells-Urine 0 SEEN /hpf (0-5); Squamous Epithelial Cells - UA 0 SEEN /hpf (5-10)
[2020-02-26 07:55] LABS: Color, Urine Yellow (Yellow); Glucose, Dipstick Normal (Normal); Ketone-Dipstick Negative (Negative); Leukocyte Esterase-Dipstick 500 /ul (Negative); Nitrite-Dipstick Positive (Negative); Occult Blood-Urine 10 /ul (Negative); Protein-Dipstick 15 mg/dl (Negative); Urine Bilirubin Dipstick Negative (Negative); Urine Clarity Sl. Cloudy (Clear); Urine Urobilinogen Normal (Normal)
[2020-02-26 08:12] LABS: Bacteria 4+ /hpf (None Seen); White Blood Cells 50-100 SEEN /hpf (0-5)
== END ==
PROVIDERS: PCP Family Medicine; Visit Provider Family Medicine
DX: N32.9 Bladder disorder, unspecified (principal); Z79.899 Other long term (current) drug therapy
CPT/HCPCS: 81001; 87077; 87086; 87088; 87186

== ENCOUNTER → 2020-03-29 06:45 | Outpatient (REF) | payer MEDICARE, SELFPAY ==
[2019-09-22 15:11] VITALS: BMI 26.5
[2020-03-29 07:45] LABS: ALB/GLOB Ratio 0.9 RATIO (0.9-2.4); AST(SGOT) 10 U/L (15-37); Alanine Aminotransfer ALT/SGPT 12 U/L (13-56); Albumin, Serum 3.1 g/dL (3.2-5.0); Alkaline Phosphatase 61 U/L (45-117); Anion Gap 5 (5-15); BUN 25 mg/dL (7-18); BUN/Creat Ratio 32.3 RATIO (10-20); Calcium,Total 8.3 mg/dL (8.5-10.1); Chloride 111 mmol/L (98-107); Creatinine, Serum 0.78 mg/dL (0.55-1.02); EST Glomerular Filtration Rate 75 mL/min (>60); Est Glom Filt Rate - Afr Amer 91 mL/min (>60); Globulin 3.3 g/dL (2.2-4.2); Glucose 87 mg/dL (74-106); Potassium 3.7 mmol/L (3.5-5.1); Protein, Total 6.4 g/dL (6.4-8.2); Sodium Level 143 mmol/L (136-145); Thyroid Stim Hormone (TSH) 1.04 uIU/mL (0.358-3.74)
== END ==
PROVIDERS: PCP Family Medicine; Visit Provider Family Medicine
DX: E03.9 Hypothyroidism, unspecified (principal); F03.90 Unspecified dementia, unspecified severity, without behavioral disturbance, psychotic disturbance, mood disturbance, and anxiety; G89.4 Chronic pain syndrome; Z79.899 Other long term (current) drug therapy
CPT/HCPCS: 36415; 80053; 84443

== ENCOUNTER → 2020-04-26 06:00 | Outpatient (REF) | payer MEDICARE, SELFPAY ==
[2019-09-22 15:11] VITALS: BMI 26.5
[2020-04-26 07:26] LABS: Absolute Lymphocyte Count 2.28 X10^3/uL (0.83-4.51); Absolute Neutrophil Count 3.1 X10^3/uL (2.0-7.7); Basophil# 0.03 X10^3/uL; Basophil% 0.5 % (0-1); Eosinophil# 0.07 X10^3/uL; Eosinophils% 1.1 % (0-5); Hematocrit 34.2 % (37-47); Lymphocyte # 2.28 X10^3/ul (4.0); Mean Corp Hgb Conc 32.2 g/dL (32-36); Mean Corpuscular Hgb 30.3 pg (27.0-32.0); Mean Corpuscular Volume 94.2 fL (81-99); Mean Platelet Vol. 9.4 fl (6.2-12.0); Monocyte# 0.67 X10^3/uL; Monocyte% 10.9 % (0-10); NRBC Flagged by Analyzer 0 % (0-5); Neutrophil # 3.11 X10^3/uL (2.7-7.7); Neutrophil % 50.3 % (47-70); Platelet Count 233 K/mm3 (150-450); RBC Distribution Width CV 13.2 % (11.6-14.6); RBC Distribution Width SD 45.1 fl (35.1-43.9); Red Blood Count 3.63 M/mm3 (4.2-5.4); White Blood Count 6.2 K/mm3 (4.4-11.0)
[2020-04-26 07:43] LABS: Anion Gap 4 (5-15); BUN 21 mg/dL (7-18); BUN/Creat Ratio 18.3 RATIO (10-20); Calcium,Total 8.4 mg/dL (8.5-10.1); Chloride 110 mmol/L (98-107); Creatinine, Serum 1.15 mg/dL (0.55-1.02); EST Glomerular Filtration Rate 48 mL/min (>60); Est Glom Filt Rate - Afr Amer 58 mL/min (>60); Glucose 89 mg/dL (74-106); Potassium 3.6 mmol/L (3.5-5.1); Sodium Level 143 mmol/L (136-145)
== END ==
PROVIDERS: PCP Family Medicine; Referring Provider Family Medicine; Visit Provider Family Medicine
DX: I10 Essential (primary) hypertension (principal); R60.9 Edema, unspecified; R03.0 Elevated blood-pressure reading, without diagnosis of hypertension; Z79.899 Other long term (current) drug therapy
CPT/HCPCS: 36415; 80048; 85025

== ENCOUNTER → 2020-05-23 04:00 | Outpatient (REF) | payer MEDICARE, SELFPAY ==
[2019-09-22 15:11] VITALS: BMI 26.5
[2020-05-23 07:25] LABS: Hematocrit 34.1 % (37-47); Hemoglobin 11.1 g/dL (12.0-15.0); Mean Corp Hgb Conc 32.6 g/dL (32-36); Mean Corpuscular Hgb 30.1 pg (27.0-32.0); Mean Corpuscular Volume 92.4 fL (81-99); Mean Platelet Vol. 9.7 fl (6.2-12.0); Platelet Count 221 K/mm3 (150-450); RBC Distribution Width CV 12.3 % (11.6-14.6); RBC Distribution Width SD 42.1 fl (35.1-43.9); Red Blood Count 3.69 M/mm3 (4.2-5.4); White Blood Count 6.4 K/mm3 (4.4-11.0)
[2020-05-23 08:11] LABS: Anion Gap 8 (5-15); BUN 20 mg/dL (7-18); BUN/Creat Ratio 32.2 RATIO (10-20); Calcium,Total 8.3 mg/dL (8.5-10.1); Chloride 106 mmol/L (98-107); Creatinine, Serum 0.62 mg/dL (0.55-1.02); EST Glomerular Filtration Rate 97 mL/min (>60); Est Glom Filt Rate - Afr Amer 118 mL/min (>60); Glucose 86 mg/dL (74-106); Potassium 3.4 mmol/L (3.5-5.1); Sodium Level 140 mmol/L (136-145); Thyroid Stim Hormone (TSH) 1.07 uIU/mL (0.358-3.74)
== END ==
PROVIDERS: PCP Family Medicine; Referring Provider Family Medicine; Visit Provider Family Medicine
DX: I10 Essential (primary) hypertension (principal); E03.9 Hypothyroidism, unspecified
CPT/HCPCS: 36415; 80048; 84443; 85027

== ENCOUNTER → 2020-07-06 05:00 | Outpatient (REF) | payer MEDICARE, SELFPAY ==
[2019-09-22 15:11] VITALS: BMI 26.5
[2020-07-06 07:36] LABS: T4 Total, Thyroxin 7.1 ug/dL (4.8-13.9); Thyroid Stim Hormone (TSH) 1.56 uIU/mL (0.358-3.74)
== END ==
PROVIDERS: PCP Family Medicine; Referring Provider Family Medicine; Visit Provider Family Medicine
DX: E03.9 Hypothyroidism, unspecified (principal)
CPT/HCPCS: 36415; 84436; 84443

== ENCOUNTER → 2020-08-10 16:40 | Outpatient (REF) | payer MEDICARE, SELFPAY ==
[2019-09-22 15:11] VITALS: BMI 26.5
[2020-08-11 07:24] LABS: Mucous, Urine 0 SEEN /hpf (<or=2+); Red Blood Cells-Urine 0 SEEN /hpf (0-5); Squamous Epithelial Cells - UA 0 SEEN /hpf (5-10)
[2020-08-11 07:46] LABS: Color, Urine Yellow (Yellow); Glucose, Dipstick Normal (Normal); Ketone-Dipstick Negative (Negative); Leukocyte Esterase-Dipstick 500 /ul (Negative); Nitrite-Dipstick Positive (Negative); Occult Blood-Urine 25 /ul (Negative); Protein-Dipstick 15 mg/dl (Negative); Specific Gravity, Urine 1.015 (1.002-1.030); Urine Bilirubin Dipstick Negative (Negative); Urine Clarity Cloudy (Clear); Urine Urobilinogen 1 mg/dl (Normal)
[2020-08-11 07:53] LABS: White Blood Cells 10-25 SEEN /hpf (0-5)
[2020-08-11 07:54] LABS: Bacteria 2+ /hpf (None Seen)
== END ==
PROVIDERS: PCP Family Medicine; Visit Provider Family Medicine
DX: N39.0 Urinary tract infection, site not specified (principal); R32 Unspecified urinary incontinence; R31.9 Hematuria, unspecified
CPT/HCPCS: 81001; 87077; 87086; 87088; 87186

== ENCOUNTER → 2020-08-27 10:24 | Outpatient (REF) | payer MEDICARE, SELFPAY ==
[2019-09-22 15:11] VITALS: BMI 26.5
[2020-08-27 11:02] LABS: Absolute Lymphocyte Count 1.93 X10^3/uL (0.83-4.51); Absolute Neutrophil Count 2.5 X10^3/uL (2.0-7.7); Basophil# 0.05 X10^3/uL; Eosinophil# 0.09 X10^3/uL; Eosinophils% 1.8 % (0-5); Hematocrit 33.5 % (37-47); Hemoglobin 10.4 g/dL (12.0-15.0); Lymphocyte # 1.93 X10^3/ul (0.83-4.51); Lymphocyte % 37.7 % (19-41); Mean Corpuscular Hgb 28.7 pg (27.0-32.0); Mean Corpuscular Volume 92.3 fL (81-99); Mean Platelet Vol. 9.4 fl (6.2-12.0); Monocyte% 9.8 % (0-10); NRBC Flagged by Analyzer 0 % (0-5); Neutrophil # 2.54 X10^3/uL (2.7-7.7); Neutrophil % 49.5 % (47-70); Platelet Count 254 K/mm3 (150-450); RBC Distribution Width CV 12.8 % (11.6-14.6); RBC Distribution Width SD 43.2 fl (35.1-43.9); Red Blood Count 3.63 M/mm3 (4.2-5.4); White Blood Count 5.1 K/mm3 (4.4-11.0)
[2020-08-27 11:42] LABS: ALB/GLOB Ratio 0.8 RATIO (0.9-2.4); AST(SGOT) 11 U/L (15-37); Alanine Aminotransfer ALT/SGPT 9 U/L (13-56); Albumin, Serum 2.8 g/dL (3.2-5.0); Alkaline Phosphatase 58 U/L (45-117); Anion Gap 4 (5-15); BUN 19 mg/dL (7-18); BUN/Creat Ratio 27.1 RATIO (10-20); Calcium,Total 8.2 mg/dL (8.5-10.1); Chloride 108 mmol/L (98-107); EST Glomerular Filtration Rate 85 mL/min (>60); Est Glom Filt Rate - Afr Amer 102 mL/min (>60); Globulin 3.3 g/dL (2.2-4.2); Glucose 84 mg/dL (74-106); Potassium 3.8 mmol/L (3.5-5.1); Protein, Total 6.1 g/dL (6.4-8.2); Sodium Level 142 mmol/L (136-145)
== END ==
PROVIDERS: PCP Family Medicine; Referring Provider Family Medicine; Visit Provider Family Medicine
DX: R42 Dizziness and giddiness (principal)
CPT/HCPCS: 36415; 80053; 85025